=== PATIENT | female | born 1995 | race Caucasian/White ===

== ENCOUNTER 2019-09-06 13:36 | Outpatient (CLI) | payer OTHER, SELFPAY ==
--- NOTE | ~2019-09-06 | XR_ITS ---
EXAMINATION: XR skull min 4V EXAM DATE: 09/06/2019 14:25 INDICATION: Head injury. TECHNIQUE: Frontal, Carlos's, bilateral lateral projections of the skull. There is no prior study fo r comparison. FINDINGS: There are no acute skull fractures or dislocations identified. There is no subcutaneous ga s. The soft tissue is unremarkable. There are no radiopaque foreign bodies. Nasal Bones visualize d on the lateral projections, appear intact. IMPRESSION: 1. Skull exam without acute osseous findings. Reviewed, dictated and finalized at location A.
--- NOTE | ~2019-09-06 | XR_ITS ---
EXAMINATION: XR orbits min 4V EXAM DATE: 09/06/2019 14:25 INDICATION: Facial swelling, pain, head injury. TECHNIQUE: Orbit frontal, Solis, bilateral oblique projections. There is no prior study for compar khalif. FINDINGS: The orbital rims and floors appear intact. There are no acute orbital fractures or disloca tions identified. There is no subcutaneous gas. The soft tissue is unremarkable. There are no rad iopaque foreign bodies. Sinuses appear well-aerated. IMPRESSION: No acute osseous findings. Reviewed, dictated and finalized at location A. IMPRESSION: No acute osseous findings.
== END 2019-09-06 13:37 | disposition home or self-care (01) ==
LOC: CHSIMG 13:41
PROVIDERS: PCP Physician Assistant; Visit Provider Physician Assistant
DX: R22.0 Localized swelling, mass and lump, head (principal); R51 Headache
CPT/HCPCS: 70200; 70260

== ENCOUNTER 2023-02-18 18:12 | Emergency (ER) | payer OTHER, SELFPAY ==
--- NOTE | ~2023-02-18 | CT_ITS ---
EXAMINATION: CT abdomen pelvis w con DATE: 02/18/2023 19:22 INDICATION: LOWER abdominal pain INTO RIGHT FLANK X 3 HOURS TECHNIQUE: Computed tomography (CT) of the abdomen and pelvis was performed with 100 mL Omnipaque-350 intravenous contrast. Automated exposure control and iterative reconstruction technique were employe d. The dose-length product was 858.31 mGy-cm. COMPARISON: 04/03/2019. FINDINGS: Lower thorax: Unremarkable Liver: Normal. Biliary/Gallbladder: Gallbladder is normal. No bile duct dilation. Pancreas: No mass or duct dilation. Spleen: Normal. Adrenals:No mass. Kidneys: Symmetric nephrograms. Moderate bilateral urothelial enhancement and mild bilateral hydronep hrosis. GI tract: No small or large bowel dilation. Normal appendix. Mesentery/Peritoneum: No ascites, mass, or free air. Retroperitoneum: No mass. Pelvis: Mild bladder wall edema. Normal uterus. Soft Tissues: Soft tissues and body wall unremarkable. Bones: No acute osseous finding. Uncomplicated appearing but incompletely visualized left hip replac ement. IMPRESSION: Findings suspicious for cystitis with bilateral ascending infection and bilateral pyelitis. Pyeloneph ritis not excluded. Reviewed, dictated and finalized at location K. 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 Pyelonephritis not excluded.
--- NOTE | 2023-02-18 18:17 | ED.ABDPAIN ---
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 The pain started suddenly and has been getting worse. The patient has nausea without any vomiting or diarrhea. No fever. The patient had a prior episode of pain 2 years ago. No history of any abdominal surgeries. MD elicited complaint: abdominal pain Onset (ago): hour(s) ( Started 3 hours ago) Pain Consistency: constant Location: diffuse Severity: severe Quality: aching Radiation: none Migration to: no migration Exacerbating factors: nothing Relieving factors: nothing Associated symptoms: denies other symptoms and nausea Related Data Allergies Allergy/AdvReac Type Severity Reaction Status Date / Time morphine Allergy Intermediate Rash Verified 04/03/19 12:02 [place] Allergy Hives Verified 02/18/23 18:35 Review of Systems Review of Systems: All systems reviewed & are unremarkable except as noted in HPI and below Constitutional: Constitutional: Reports as per HPI and Reports no additional constitutional complaints Eyes: Eyes: Reports as per HPI and Reports no additional eye complaints ENT: Reports system reviewed and no additional complaints, except as documented and Reports as per HPI Cardiovascular: Cardiovascular: Reports as per HPI and Reports no additional cardiovascular complaints Respiratory: Respiratory: Reports as per HPI and Reports no additional respiratory complaints Gastrointestinal: Gastrointestinal: Reports as per HPI, Reports no additional gastrointestinal complaints, Reports abdominal pain and Reports nausea Genitourinary: Genitourinary: Reports no additional female genitourinary complaints and Reports as per HPI Musculoskeletal: Musculoskeletal: Reports no additional musculoskeletal complaints and Reports as per HPI Integumentary/Breasts: Skin/Breast: Reports system reviewed and no additional complaints, except as docu and Reports as per HPI Neurologic: Reports system reviewed and no additional complaints, except as documented and Reports as per HPI Psychiatric: Psychiatric: Reports no additional psychiatric complaints and Reports as per HPI Endocrine: Endocrine: Reports no additional endocrine complaints and Reports as per HPI Hematologic/Lymphatic: Hematologic/Lymphatic: Reports no additional hematologic/lymphatic complaints and Reports as per HPI Allergic/Immunologic: Allergic/Immunologic: Reports no additional allergic/immunologic complaints and Reports as per HPI [facility] Past Medical History Medical History (Updated 02/18/23 @ 20:19 by Avi Faria MD) Depression (02/24/17) Juvenile osteochondrosis of hip and pelvis Other chronic pain (02/24/17) Other specified contraceptive management (02/24/17) Palpitations Perthes disease lt hip Unspecified examination Surgical History Surgical History History of hip replacement lt hip Family History Family History Father Family history of bipolar disorder Depression Social History Social History Additional smoking assessment comments: Does not smoke Alcohol intake: current Gender identity (if verbalized by the patient): Female Exam Const: General: no acute distress Orientation/consciousness: patient oriented x3 Limitations: no limitations HENMT: Head: normal to inspection Ears: external ears normal Face/Nose/Sinus: Normal external nose present Face and sinus: normal facial exam Mouth: Yes Normal oral and palatal mucosa present Throat: posterior oropharynx normal
[2023-02-18 18:20] VITALS: BP 130/74; PULSE 73; RESP 18; TEMP 36.4; O2SAT 100
[2023-02-18 18:37] LABS: Appearance Urine Slightly Cloudy (Clear); Basophils Absolute Auto 0.05 K/mm3 (0.00-0.10); Basophils Percent Auto 0.3 % (0.0-1.0); Bilirubin Urine Negative (Negative); Blood Urine 3+ (Negative); Eosinophils Absolute Auto 0.14 K/mm3 (0.02-0.50); Glucose Urine UA Negative (Negative); Hemoglobin 12.9 g/dL (12.0-15.0); Immature Granulocyte Absolute 0.06 K/mm3 (0.00-0.00); Immature Granulocyte Percent A 0.4 % (0.0-0.0); Ketones Urine Negative (Negative); Leukocyte Esterase Ur 2+ LEU/UL (Negative); Lymphocytes Absolute Auto 2.65 K/mm3 (1.10-4.50); Mean Corpuscular HGB Conc 33.1 g/dL (32.0-36.0); Mean Corpuscular Hemoglobin 31.8 pg (27.0-31.0); Mean Corpuscular Volume 96.1 fL (78.0-102.0); Mean Platelet Volume 9.2 fl (9.2-11.8); Monocytes Absolute Auto 0.64 K/mm3 (0.10-0.90); Monocytes Percent Auto 4.4 % (2.0-11.0); Neutrophils Absolute Auto 11.2 K/mm3 (1.7-7.2); Neutrophils Percent Auto 75.9 % (50.0-70.0); Nitrate Urine Negative (Negative); Platelet Count Result 407 K/mm3 (150-420); Protein Urine 2+ (Negative); Red Blood Count 4.06 M/mm3 (4.20-5.40); Red Cell Distribution Width 12.9 % (11.6-14.4); Urobilinogen Urine 0.2 mg/dL (0.2-1.0); White Blood Count 14.7 K/mm3 (4.8-10.8)
[2023-02-18 18:44] LABS: Add Urine Microscopic? YES; Bacteria Urine Trace /hpf; Color Urine Light Yellow (Yellow); RBC Urine 21-50 /hpf (0-2); Squamous Epithelial Cell Urine Rare /hpf (Few); WBC Clumps Urine Present /hpf; WBC Urine 31-50 /hpf (0-3)
[2023-02-18 18:52] LABS: INR 0.9; Partial Thromboplastin Time 27.1 SEC (23.90-30.70); Prothrombin Time 10.4 Seconds (9.50-12.10)
[2023-02-18 18:54] LABS: Alanine Aminotransferase 46 U/L (14-59); Albumin Level 3.6 g/dL (3.4-5.0); Alkaline Phosphatase 108 U/L (46-116); Anion Gap 8 mmol/L (8-16); Aspartate Amino Transferase 19 U/L (15-37); Bilirubin,Total 0.3 mg/dL (0.00-1.00); Blood Urea Nitrogen 15 mg/dL (7-18); Carbon Dioxide 28 mmol/L (21-32); Chloride 104 mmol/L (98-108); Estimated CRCL calculation 79 ml/min; Estimated Glomerular Filt Rate 60; Glucose 95 mg/dL (70-99); Lipase 23 U/L (16-77); Osmolality Calculated 290 mOsm/kg (285-295); Potassium 3.9 mmol/L (3.5-5.1); Sodium 140 mmol/L (136-145); Total Protein 7.4 g/dL (6.4-8.2)
[2023-02-18 18:58] LABS: Pregnancy On Board Control Positive; Urine Pregnancy Test Negative
[2023-02-18] MEDS: ONDANSETRON INJ 4 MG/2 ML VIAL IV PUSH (19:38)
[2023-02-18] MEDS: LACTATED RINGERS 1,000 ML 999 ML IV CONT (19:38)
[2023-02-18] MEDS: HYDROmorphone HCL INJ (*CRX) 2 MG/ML VIAL 0.5 MG IV PUSH (19:38)
[2023-02-18] MEDS: CIPROFLOXACIN 500 MG TAB PO (20:55)
[2023-02-18 21:03] VITALS: BP 98/74; PULSE 64; RESP 16; TEMP 36.8; O2SAT 99
--- NOTE | 2023-02-22 12:32 | PC.NURSE ---
pt urine culture reviewed. pt given rx cipro, appropriate medication. no change needed
--- NOTE | 2023-02-25 13:01 | PC.NURSE ---
final urine culture reviewed. >100,000 E. coli isolated. pt was prescribed cipro at discharge, culture report shows sensitivity to this medication. no change in plan of care.
== END 2023-02-18 21:04 | disposition home or self-care (01) ==
PROVIDERS: Emergency Provider Internal Medicine Critical Care Medicine; PCP Physician Assistant
DX: N10 Acute pyelonephritis (principal)
CPT/HCPCS: 36415; 74177; 80053; 81001; 81025; 83605; 83690; 85025; 85610; 85730; 87077; 87086; 87088; 87186; 96361; 96374; 96375; 99284; A9270; J1170; J2405; J7120; Q9967

== ENCOUNTER 2023-07-25 17:07 | Emergency (ER) | payer OTHER, SELFPAY ==
[2023-07-25 17:08] VITALS: BP 127/76; PULSE 84; RESP 20; TEMP 36.8; O2SAT 97
--- NOTE | 2023-07-25 17:09 | ED.GENADULT ---
HPI - General Adult General Chief complaint: Extremity Injury, Lower Stated complaint: ankle swelling Time Seen by Provider: 07/25/23 17:09 Source: patient Mode of arrival: ambulatory Limitations: no limitations History of Present Illness HPI narrative: 28-year-old white female is on vacation walking a lot on a cruise last 5 days and then has had increasing swelling in her lower extremities and feet which hurt. She has a history of swelling in the past related to salt intake. Denies any history of liver kidney disease or congestive heart failure venous thromboembolism. Only past medical history is artificial hip anxiety depression. Denies any shortness of breath cough sore throat runny nose fever dizziness or lightheadedness weakness rash her itching lumps or bumps or other swelling. Bleeding or bruising. Her feet feel numb. Swelling is worse when she is walking. Denies any trauma. She feels like the backs of her ankles or heel hurts. Bilaterally she took some ibuprofen 4 tablets twice a day and some Tylenol. She is eating and drinking stooling and voiding fine. Denies any other complaints Related Data Home Medications Medication Instructions Recorded Confirmed aripiprazole 400 mg suspension, 400 mg IM WEEKLY 07/25/23 07/25/23 extended rel.intramuscular syringe (Maye Dejesus) gabapentin 100 mg capsule 100 mg PO DAILY 07/25/23 07/25/23 lamotrigine 100 mg tablet 100 mg PO DAILY 07/25/23 07/25/23 prazosin 1 mg capsule 1 mg PO DAILY 07/25/23 07/25/23 Allergies Allergy/AdvReac Type Severity Reaction Status Date / Time morphine Allergy Intermediate Rash Verified 07/25/23 17:09 [place] Allergy Hives Verified 07/25/23 17:09 Review of Systems Review of Systems: All systems reviewed & are unremarkable except as noted in HPI and below PMFSH Past Medical History Medical History Depression (02/24/17) Juvenile osteochondrosis of hip and pelvis Other chronic pain (02/24/17) Other specified contraceptive management (02/24/17) Palpitations Perthes disease lt hip Unspecified examination Surgical History Surgical History History of hip replacement lt hip Family History Family History Father Family history of bipolar disorder Depression Social History Social History Additional smoking assessment comments: Does not smoke Alcohol intake: current Gender identity (if verbalized by the patient): Female Exam Narrative: White female no apparent distress. ?Head:? Normocephalic atraumatic.? Eyes conjunctiva pink sclera nonicteric.? Ears TMs are normal.? Oropharynx is clear with moist mucous membranes no exudates.? Neck is supple no lymphadenopathy nontender full range of motion.? Back is nontender.? Chest nontender.? Lungs are clear without wheezes rales or rhonchi.? Heart is regular rate rhythm without murmurs gallops or rubs.? Abdomen soft and nontender no hepatosplenomegaly or masses no CVA tenderness no abdominal bruits.? Extremities no cyanosis clubbing. A feet and legs are swollen +2 bilaterally. Negative Homans sign bilaterally. DP and PT pulses are +2 equal bilaterally. Gait is normalNeurological she is alert and oriented x4 motor and sensory grossly intact.? Skin is warm and dry without lesions. Course Vital Signs Vital signs: Vital Signs Temperature 36.8 C 07/25/23 17:08 Pulse Rate 84 07/25/23 17:08 Respiratory Rate 20 07/25/23 17:08 Blood Pressure 127/76 07/25/23 17:08 Pulse Oximetry 97 07/25/23 17:08 Oxygen Delivery Room Air 07/25/23 17:08 Temperature 36.7 C 07/25/23 20:33 Pulse Rate 87 07/25/23 20:33 Respiratory Rate 16 07/25/23 20:33 Blood Pressure 127/84 07/25/23 20:33 Pulse Oximetry 96 07/25/23 20:33 Oxygen Delive
[2023-07-25 17:11] VITALS: BP 127/76; PULSE 84; RESP 20; TEMP 36.8; O2SAT 97
[2023-07-25 18:11] LABS: Hematocrit 36.8 % (35.0-49.0); Hemoglobin 12.4 g/dL (12.0-15.0); Mean Corpuscular HGB Conc 33.7 g/dL (32-36); Mean Corpuscular Volume 94.8 fL (78.0-102.0); Mean Platelet Volume 9.8 fl (9.2-11.8); Platelet Count Result 364 K/mm3 (150-420); Red Blood Count 3.88 M/mm3 (4.20-5.40); Red Cell Distribution Width 13.3 % (11.6-14.4); White Blood Count 7.2 K/mm3 (4.8-10.8)
[2023-07-25 18:24] LABS: D Dimer 0.28 mg/L (0.19-0.50); INR 0.9; Partial Thromboplastin Time 24.9 Sec (23.9-30.70); Prothrombin Time 10.3 Seconds (9.50-12.1)
[2023-07-25 18:26] LABS: Alanine Aminotransferase 82 U/L (14-59); Albumin Level 3.2 g/dL (3.4-5.0); Alkaline Phosphatase 93 U/L (46-116); Anion Gap 9 mmol/L (4-12); Aspartate Amino Transferase 53 U/L (15-37); Bilirubin,Total 0.3 mg/dL (0.00-1.00); Blood Urea Nitrogen 11 mg/dL (7-18); Calcium 7.8 mg/dL (8.5-10.1); Carbon Dioxide 28 mmol/L (21-32); Chloride 105 mmol/L (98-108); Estimated CRCL calculation 97 ml/min; Estimated Glomerular Filt Rate > 60; Glucose 89 mg/dL (70-99); Osmolality Calculated 292 mOsm/kg (285-295); Potassium 3.9 mmol/L (3.5-5.1); Sodium 142 mmol/L (136-145); Total Protein 6.8 g/dL (6.4-8.2)
[2023-07-25 20:33] VITALS: BP 127/84; PULSE 87; RESP 16; TEMP 36.7; O2SAT 96
[2023-07-25 22:00] VITALS: BP 107/74; PULSE 69; RESP 16; O2SAT 99
[2023-07-25] MEDS: FUROSEMIDE 20 MG TABLET 40 MG PO (22:39)
== END 2023-07-25 22:50 | disposition home or self-care (01) ==
PROVIDERS: Emergency Provider Emergency Medicine; PCP Physician Assistant
DX: R60.0 Localized edema (principal); E83.51 Hypocalcemia; F32.A Depression, unspecified
CPT/HCPCS: 36415; 80053; 85027; 85380; 85610; 85730; 99283; A9270

== ENCOUNTER 2024-01-26 08:45 | Outpatient (CLI) | payer OTHER, SELFPAY ==
--- NOTE | ~2024-01-26 | MMUS_ITS ---
EXAMINATION: MM diagnostic mika BI w vanessa, US breast LT limited HISTORY: Breast abscess. Left breast pain. TECHNIQUE: Additional 3-D tomosynthesis images of the breasts were performed and synthetic 2-D images were generated. CAD analysis was submitted and interpreted. High resolution Limited left breast ultr asound was performed. COMPARISON: None BREAST PARENCHYMAL COMPOSITION: Not dense: There are scattered areas of fibroglandular density. FINDINGS: MAMMOGRAPHIC FINDINGS: There are no suspicious masses, calcifications or architectural distortion in either breast to sugges t malignancy. ULTRASOUND: Limited left breast ultrasound: In the left chest wall 14 cm from the nipple there is a heterogeneous hypoechoic area with some small focal areas of internal cystic change measuring 2.1 x 1.7 x 4.7 cm, consistent with phlegmon. No drainable abscess. IMPRESSION: 1. Irregular hypoechoic mass of the left chest wall 14 cm from the nipple, consistent with phlegmonou s change. No drainable abscess. 2. Recommend follow-up Limited left breast ultrasound in 2-3 months following appropriate therapy. BI-RADS category 3, probably benign findings. Reviewed, dictated and finalized at location B. IMPRESSION: 1. Irregular hypoechoic mass of the left chest wall 14 cm from the nipple, cons istent with phlegmonous change. No drainable abscess. 2. Recommend follow-up Limited left breast ultrasound in 2-3 months following a ppropriate therapy. BI-RADS category 3, probably benign findings.
== END 2024-01-26 08:46 | disposition home or self-care (01) ==
PROVIDERS: PCP Physician Assistant; Visit Provider Physician Assistant
DX: N61.1 Abscess of the breast and nipple (principal)
CPT/HCPCS: 76642; 77062; 77066; G0279

== ENCOUNTER 2024-02-29 05:51 | Day surgery (SDC) | payer OTHER, SELFPAY ==
[2024-02-16 10:40] VITALS: BMI 35.6
[2024-02-29 06:17] VITALS: BP 130/87; PULSE 85; RESP 16; TEMP 36.4; O2SAT 100
--- NOTE | 2024-02-29 06:51 | WPDANESEPPF ---
Anes - Initial Pre Proc Eval Procedure: Operation Date: 02/29/24 07:30 Proposed Procedures p Excision 3.5cm Left Chest Wall Cyst - Angel Bingham DO Date/Time: 02/29/24 06:51 Surgeon: Angel Bingham DO Pre Op Diagnosis: Left Chest Wall Cyst Patient Data Age: 28 Gender: F Height: 1.68 m Weight: 98.7 kg Last Vital Signs Temp 36.4 C L 02/29/24 06:17 Pulse 85 02/29/24 06:17 Resp 16 02/29/24 06:17 BP 130/87 02/29/24 06:17 Pulse Ox 100 02/29/24 06:17 O2 Del Method Room Air 02/29/24 06:17 Allergies Allergy/AdvReac Type Severity Reaction Status Date / Time morphine Allergy Intermediate Rash Verified 02/29/24 06:10 [place] Allergy Hives Verified 02/29/24 06:10 Home Medications Medication Instructions Recorded Confirmed Type gabapentin 100 mg capsule 100 mg PO TID 07/25/23 02/29/24 History clonidine HCl 0.1 mg tablet 0.1 mg PO TID 02/16/24 02/29/24 History Patient hx anesthesia problems: none Family hx anesthesia problems: none Results Review: All pre-operative results and documents have been reviewed as part of the pre-operative evaluation. [facility] Past Medical History Medical History Arthritis Depression (02/24/17) Juvenile osteochondrosis of hip and pelvis Other chronic pain (02/24/17) Other specified contraceptive management (02/24/17) Palpitations Perthes disease lt hip Unspecified examination Surgical History Surgical History History of hip replacement lt hip History of hip surgery Family History Family History Father Family history of bipolar disorder Depression Grandparent Cancer Breast cancer Other Diabetes mellitus Social History Social History Smoking status: Former smoker Tobacco type: cigarettes Second hand tobacco smoke exposure: Yes Additional smoking assessment comments: Does not smoke Alcohol intake: current Drinks per week: 3 Substance use type: does not use Do You Feel Safe in your Home?: Yes Lack of Transportation: No Lack of Food: Never True Current Housing: I Have Housing Concerned About Future Housing: No Difficulty Paying Gas/Electric Bills: No Difficulty Paying for Meds: No Currently Unemployed: No Education: Associate Degree Difficulty w/ Childcare or Family Care: No Living arrangements: with family Gender identity (if verbalized by the patient): Female Spiritual care concerns: No Anes - Eval Final PreProcedure Day of Procedure 02/29/24 06:51 Patient weight: obese Heart: regular rate and rhythm Lungs: clear to auscultation Airway: Mallampati scale class II Neurological: alert and oriented Last oral intake: >/= 8 hours ASA classification: II Emergent: no Anesthetic plan: proceed Anesthesia type and monitoring: general GIVS and standard monitoring Results Review: All pre-operative results and documents have been reviewed as part of the pre-operative evaluation. Informed Consent: The patient's anesthetic plan and its attendant risks and benefits were discussed with the patient/family/POA. Questions were solicited and answers provided to the satisfaction of the patient/family/POA.
[2024-02-29] MEDS: LACTATED RINGERS 1,000 ML 30 ML IV CONT (06:59)
--- NOTE | 2024-02-29 07:13 | WPDHPUPDATE1 ---
History and Physical Update Update Date/Time: 02/29/24 07:13 History and Physical has been reviewed, including an updated exam of the patient. There are NO changes in the patient's condition. Risks, benefits, and alternatives have been discussed and questions answered. Patient agrees to proceed with procedure.
[2024-02-29] MEDS: LIDO 1%/EPINEPHRINE 1:100,000 10 ML VIAL 20 ML INFILTRATE (07:39)
[2024-02-29 08:02] VITALS: BP 127/61; PULSE 86; RESP 14; O2SAT 98
--- NOTE | 2024-02-29 08:04 | W.PM.PROC2 ---
Procedure Note - Detailed Date of Procedure 02/29/24 Pre-op Diagnosis Left Chest Wall Cyst Post-op Diagnosis Same Procedure Performed Excision of 3.5 cm left chest wall cyst Surgeon Angel Bingham, DO Anesthesia MAC and Local ( 1% lidocaine with epinephrine) Indications this is a 28-year-old woman who presented with a chest wall cyst that she 1st noticed about 1 month ago. This was initially noted as some swelling and redness in the area and she was placed on antibiotics which did not help significantly. She denies any significant drainage, but was having some increased swelling and tenderness. She underwent mammogram and ultrasound which showed predominantly phlegmonous changes. The area appeared to be a cyst within the subcutaneous tissue along the medial portion of the left chest wall. This did not appear to be involving the actual breast tissue. Discussions were made with the patient about treatment options and decision was made to proceed with excision of 3.5 cm left chest wall cyst. Findings Excision of 3.5 cm left chest wall cyst was performed. An elliptical incision was made to encompass the skin at the surface of the cyst. The cyst was completely excised and sent to the lab for pathology. It appeared to be ruptured within the subcutaneous space. No other abnormal findings were noted. Description of Procedure Procedure as well as risks, benefits, and alternatives were discussed with the patient. Written consent was obtained and placed in chart prior to procedure. Patient was brought back to surgical suite. She was placed supine on the operating table. Time-out was done to confirm patient and procedure. IV sedation was then administered by the anesthesia department. Her chest area was prepped and draped in sterile fashion using chlorhexidine prep. 1% lidocaine with epinephrine was infiltrated locally around the cyst. A 3.5 cm vertical elliptical incision was then made directly over the cyst using a 15 blade scalpel. The cyst was sharply excised using the 15 blade scalpel. It was excised completely and then sent to the lab for pathology. The wound bed was then inspected. Hemostasis was achieved with electrocautery. The deep dermis was then reapproximated using 3-0 Vicryl inverted interrupted sutures. The skin was then reapproximated using 4-0 Monocryl running subcuticular suture. Exofin glue was then applied on top. The patient was then awakened from anesthesia and transferred to recovery. Estimated Blood Loss 5 Pathology Yes ( 3.5 cm chest wall cyst) Complications No immediate complications Condition Stable Disposition Same day [facility] Billing Surgery - Charge Forward: Surgery Billing
[2024-02-29 08:21] VITALS: BP 125/68; PULSE 77; RESP 16; O2SAT 99
[2024-02-29 08:38] VITALS: BP 117/65; PULSE 72; RESP 16; O2SAT 100
--- NOTE | 2024-02-29 09:37 | WPDANESPN ---
Anes - Prog Note Post-Op Date/Time: 02/29/24 09:37 Cardiovascular status: normal Respiratory status: normal Airway patency: baseline Mental status: baseline Post-Op hydration status: normal Vital Signs: Last Vital Signs Temp 36.4 C L 02/29/24 06:17 Pulse 72 02/29/24 08:38 Resp 16 02/29/24 08:38 BP 117/65 02/29/24 08:38 Pulse Ox 100 02/29/24 08:38 O2 Del Method Room Air 02/29/24 08:38 Pain Score (VAS): 0 I/O: Intake & Output 02/28/24 02/29/24 02/29/24 23:59 07:59 15:59 Intake Total 200 Balance 200 Post-procedural complaints: none Patient Feedback: Patient satisfied with anesthetic care. Other Findings: Patient vital signs back to baseline. Patient denies nausea and vomiting. Patient's pain under control. Patient OK for discharge.
== END 2024-02-29 08:43 | disposition home or self-care (01) ==
PROVIDERS: PCP Physician Assistant; Visit Provider Surgery
PROC: (CPT 21552; principal; 2024-02-29 07:30)
DX: R22.2 Localized swelling, mass and lump, trunk (principal)
CPT/HCPCS: 21552

== ENCOUNTER 2024-02-29 07:00 | Outpatient (NON) | payer OTHER, SELFPAY | END 2024-02-29 07:01 | disposition home or self-care (01) | LOC: ANHLAB 03-01 12:00 | PROVIDERS: PCP Physician Assistant; Visit Provider Surgery | DX: L72.0 Epidermal cyst (principal); R22.2 Localized swelling, mass and lump, trunk | CPT/HCPCS: 88305 ==

== ENCOUNTER 2024-07-12 15:09 | Outpatient (RCR) | payer OTHER, SELFPAY ==
--- NOTE | 2024-07-12 15:56 | OPREHPOC ---
Outpatient Therapy Plan of Care This is a Multidisciplinary Plan of Care that may contain components documented by all disciplines (PT, OT, and ST.) PT Problem 1 PT Problem #1 Knowledge Deficit PT Goal 1 Goal / Goal Update independent and compliant with HEP Target Visit 6 PT Problem 2 PT Problem #2 Impaired Range of Motion PT Goal 1 Goal / Goal Update 90 degrees active R hip flex Target Visit 12 PT Problem 3 PT Problem #3 Impaired Strength PT Goal 1 Goal / Goal Update 4/5 or better R hip flex 5/5 R knee strength Target Visit 12 PT Problem 4 PT Problem #4 Impaired Gait PT Goal 1 Goal / Goal Update patient to ambulate with normal gait mechanics and no AD. patient to ambulate up and down steps with reciprocal mechanics and 1 UE assist or less on hand rails Target Visit 12 PT Problem 5 PT Problem #5 Impaired Functional Mobility PT Goal 1 Goal / Goal Update LEFS to display 20% or less functional deficits patient to return to sleeping in bed patient to return sleeping through the night without being woken up due to hip pain Target Visit 12
--- NOTE | 2024-07-12 15:56 | PTOPEVAL1 ---
Assessment and note entered by JT File, PT Evaluation Information Assessment Status Evaluation Diagnosis R LATASHA ICD-10 Condition Codes (PT) Encounter for other orthopedic aftercare Z47.89, Aftercare following joint replacement surgery Z47. 1 Onset 07/08/24 Subjective Information patient reports she had LATASHA on the R hip on . she had replacement due to LCP. she had L LAATSHA about 9 years ago. she reports she had an arthroscopic R hip surgery back in november of last year that did not help. she reports since surgery she has been having a lot of pain in the R hip. she was in the hospital 4 days for the LATASHA due to issues with bleeding through the bandages, and with redness/swelling around the incision site. she reports the redness is gone, but the swelling and burning are still there. prior to surgery, she was not using any AD to get around. she reports she was limping and had a lot of pain. she reports this replacement was an anterior replacement. she reports her R hip pain is increased with any movement and standing. Reported Pain Level Pain Score 7: Self Report Assessment PT Clinical Summary mrs fowler is a 29 yo woman who presents to skilled PT for rehab following R LATASHA from LCP. she presents this date with quite a bit of pain in the R hip. she displays significant limitations in R hip rom and strength, and displays abnormal gait mechanics. continued skilled PT is indicated to improve her objective/functional deficits and return to her prior level functional activity performance/quality of life. Plan of Care Interventions Electrical Stimulation,Gait Training,Hot Pack/Cold Pack,Manual Therapy,Neuro Re-education,Patient/ Caregiver Education,Therapeutic Activities, Therapeutic Exercise PT Services Indicated Yes Treatment Frequency and 3x weekly for 12 visits Duration These treatments will address the objective and functional deficits as defined above. The patient will be advanced safely and appropriately in order for the patient to progress towards his/her prior level of function. Additional exercises will be introduced and as well as a comprehensive home exercise program upon discharge, if needed, ?to ensure carryover of functional gains achieved in the clinic. This treatment plan has been reviewed and agreement upon by the patient.
--- NOTE | 2024-07-25 11:32 | PCPTNOTE ---
Patient called & cancelled scheduled appointment this date due pt in ER.
--- NOTE | 2024-08-08 18:05 | PTOPPROG ---
Assessment and note entered by Morena Bridges, PT Evaluation Information Assessment Status Progress Diagnosis R LATASHA ICD-10 Condition Codes (PT) Encounter for other orthopedic aftercare Z47.89, Aftercare following joint replacement surgery Z47. 1 Onset 07/08/24 Subjective Information Pt reports she's been slowly getting better since she underwent a R LATASHA on 07/08/24. She reports active R hip flexion still causes pain due to weakness from anterior approach. She has now been ambulating with an SPC but has started ambulating around the house without an AD and she's hoping to wean off the cane soon to be able to ambulate without an AD. She states she's been sleeping in her bed for a while instead of the recliner and she's been trying not to take her pain meds however pain worsens at night and interferes with her sleep. She states she's pretty much up all night due to pain and when she gets up in the morning her hip pain is at its worst and that's when she takes pain meds. Assessment PT Clinical Summary Mrs. Lobo has attended 10 total skilled PT visits for orthopedic aftercare following R LATASHA on 07/08/24. Since beginning therapy she has made good progress in her ambulation and now uses an SPC to ambulate during therapy sessions. She has started ambulating in her home without an AD. She has also made good progress in her R hip AROM and strength but still demonstrates significant R hip flexor weakness along with pain with this movement , along with significant pain at night that interferes with sleep. She will benefit from continued skilled PT intervention to keep progressing toward goals. Plan of Care Interventions Electrical Stimulation,Gait Training,Hot Pack/Cold Pack,Manual Therapy,Neuro Re-education,Patient/ Caregiver Education,Therapeutic Activities, Therapeutic Exercise PT Services Indicated Yes Treatment Frequency and Continue with original POC Duration These treatments will address the objective and functional deficits as defined above. The patient will be advanced safely and appropriately in order for the patient to progress towards his/her prior level of function. Additional exercises will be introduced and as well as a comprehensive home exercise program upon discharge, if needed, ?to ensure carryover of functional gains achieved in the clinic. This treatment plan has been reviewed and agreement upon by the patient.
--- NOTE | 2024-08-11 14:45 | OPREHPOC ---
Outpatient Therapy Plan of Care This is a Multidisciplinary Plan of Care that may contain components documented by all disciplines (PT, OT, and ST.) PT Problem 1 PT Problem #1 Knowledge Deficit PT Goal 1 Goal / Goal Update independent and compliant with HEP Target Visit 6 Progress Met PT Problem 2 PT Problem #2 Impaired Range of Motion PT Goal 1 Goal / Goal Update 90 degrees active R hip flex Target Visit 12 Progress Met PT Problem 3 PT Problem #3 Impaired Strength PT Goal 1 Goal / Goal Update 4/5 or better R hip flex -not met 5/5 R knee strength -met Target Visit 12 Progress Partially Met PT Problem 4 PT Problem #4 Impaired Gait PT Goal 1 Goal / Goal Update patient to ambulate with normal gait mechanics and no AD. -met patient to ambulate up and down steps with reciprocal mechanics and 1 UE assist or less on hand rails -not met Target Visit 12 Progress Partially Met PT Problem 5 PT Problem #5 Impaired Functional Mobility PT Goal 1 Goal / Goal Update LEFS to display 20% or less functional deficits - not met patient to return to sleeping in bed -met patient to return sleeping through the night without being woken up due to hip pain -not met Target Visit 12 Progress Partially Met
--- NOTE | 2024-08-11 14:45 | PTOPPROG ---
Assessment and note entered by Morena Bridges, PT Evaluation Information Assessment Status Progress Diagnosis R LATASHA ICD-10 Condition Codes (PT) Encounter for other orthopedic aftercare Z47.89, Aftercare following joint replacement surgery Z47. 1 Onset 07/08/24 Subjective Information Felicia reports slowly making progress in physical therapy following a R LATASHA using anterior approach. She is no longer ambulating with a cane and has been sleeping in bed rather than the recliner, however she is still up all night in pain. Her hip pain tends to be worse in the morning because she avoids taking pain meds at night before bed. Assessment PT Clinical Summary Mrs. Lobo has attended 12 total skilled PT visits following a R LATASHA anterior approach on . Since beginning therapy she has made progress in her functional mobility and is now able to ambulate without a cane. However she still demonstrates significant R hip flexor weakness and early fatigue with exercise, as well as frequent night pain that interferes with her sleep. She will benefit from continued skilled PT intervention to continue improving on these deficits to be able to perform functional tasks with less pain. Plan of Care Interventions Electrical Stimulation,Gait Training,Hot Pack/Cold Pack,Manual Therapy,Neuro Re-education,Patient/ Caregiver Education,Therapeutic Activities, Therapeutic Exercise PT Services Indicated Yes Treatment Frequency and 2x/week for 8 additional visits Duration These treatments will address the objective and functional deficits as defined above. The patient will be advanced safely and appropriately in order for the patient to progress towards his/her prior level of function. Additional exercises will be introduced and as well as a comprehensive home exercise program upon discharge, if needed, ?to ensure carryover of functional gains achieved in the clinic. This treatment plan has been reviewed and agreement upon by the patient.
--- NOTE | 2024-09-05 14:57 | PCPTNOTE ---
Cancelled session. Reports she tore a tendon and is going to see ortho tomorrow.
--- NOTE | 2024-09-08 16:23 | PCPTNOTE ---
Patient called & cancelled scheduled appointment this date due to having a torn tendon following a fall on the hip. She is on hold from PT currently per her MD. -Felicity Arzate, PT
--- NOTE | 2024-11-22 14:53 | PCPTNOTE ---
discharged due to time since last session
== END 2024-10-10 23:59 | disposition home or self-care (01) ==
LOC: CHSPT 15:09
DX: M16.11 Unilateral primary osteoarthritis, right hip (principal)
CPT/HCPCS: 97014; 97110; 97112; 97116; 97140; 97150; 97161; 97530; G0283

== ENCOUNTER 2024-07-25 11:00 | Emergency (ER) | payer OTHER, SELFPAY ==
[2024-07-25] VITALS (7 sets, daily range): BP systolic 105–139; BP diastolic 64–78; PULSE 74–90; RESP 17–18; TEMP 36.9–37; O2SAT 96–100
--- NOTE | ~2024-07-25 | CT_ITS ---
CT brain wo con Ordering provider: Meir Mendoza MD History: 29 years Female with . headache, blurry vision,PERIPHERAL VISION LOSS,DIZZY,NAUSEA . Comparison: None. Technique: CT of the head without contrast. Radiation reduction technique utilized. The dose-length p roduct was 605.33 mGy-cm. FINDINGS: BRAIN PARENCHYMA AND CSF SPACES: No midline shift, mass effect or hemorrhage. The brain parenchyma a nd CSF spaces are otherwise normal. VISUALIZED PARANASAL SINUSES: Well aerated. MASTOIDS: Well aerated. BONES: The bones appear intact. SOFT TISSUES: Visualized nasopharynx is normal. Superficial soft tissues are normal. IMPRESSION: No acute intracranial findings. Reviewed, dictated and finalized at location A.
[2024-07-25] MEDS: MECLIZINE HCL 25 MG TABLET 50 MG PO (11:23)
[2024-07-25] MEDS: KETOROLAC (*BKC) 60 MG/2 ML VIAL IM (11:24)
--- NOTE | 2024-07-25 12:37 | PC.NURSE ---
Patient reports nausea and headache are gone, dizziness only with movement but has improved.
--- OUTSIDE RECORDS SUMMARY | 2024-07-25 12:54 | XMS_ITS | Encounter Summary ---
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 Legal Sex Female 7:07 PM CDT Gender Identity Not on file Sexual Orientation Not on file documented as of this encounter Plan of Treatment Not on file documented as of this encounter Visit Diagnoses Not on filedocumented in this encounter Additional Health Concerns Infection Onset Date Last Indicated Resolved Time COVID-19 Rule Out 05/25/2023 05/25/2023 05/25/2023 5:45 PM SHOVEL LOG LOADER OPERATOR COVID-19 Rule Out 03/02/2024 03/02/2024 03/02/2024 12:25 PM SHOVEL LOG LOADER OPERATOR documented as of this encounter Care Teams Cook Cold Meat Relationship Specialty Start Date End Date Adams Ricks NP [address] [place] [phone] PCP - General Nurse Practitioner Family 06/26/22 documented as of this encounter
--- OUTSIDE RECORDS SUMMARY | 2024-07-25 12:54 | XMS_ITS | Encounter Summary ---
Author Organization [facility] Address [address] [place] [address] Care Team Providers Care Software Asset Management Analyst Name Role Phone Héctor Rodriguez MD Primary Care Provider Unavailable Adams Ricks NP Primary Care Provi shaheen Encounter Details Date Type Department Care Team (Late st Contact Info) Description 02/07/2017 [place] [address] Héctor Rodriguez MD Social History Tobacco Use Types Packs/Day Years Used Date Smoking Tobacco: Never Assessed Comments Unknown Sex and Gender Information Value Date Recorded Sex Assigned at Female 04/26/2024 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 Legal Sex Female 7:07 PM CDT Gender Identity Not on file Sexual Orientation Not on file documented as of this encounter Plan of Treatment Not on file documented as of this encounter Visit Diagnoses Not on filedocumented in this encounter Additional Health Concerns Infection Onset Date Last Indicated Resolved Time COVID-19 Rule Out 05/25/2023 05/25/2023 05/25/2023 5:45 PM GUEST LAUNDRY ATTENDANT COVID-19 Rule Out 03/02/2024 03/02/2024 03/02/2024 12:25 PM GUEST LAUNDRY ATTENDANT documented as of this encounter Care Teams Software Asset Management Analyst Relationship Specialty Start Date End Date Héctor Rodriguez MD PCP - General 02/27/14 06/17/17 Adams Ricks NP [address] [place] [id number] PCP - General Nurse Practitioner Family 06/26/22 documented as of this encounter
--- OUTSIDE RECORDS SUMMARY | 2024-07-25 12:54 | XMS_ITS | Clinical Summary ---
Author Organization [facility] Address [address] [place] [address] Care Team Providers Care Machine Set Up Operator Paper Goods Name Role Phone JenniferAdams hsea Shar [employer] Primary Care Provide r Source Comments [facility],non-owned Affiliates and Associated Physician Practices is amultiple site organization consisting of ambulatory clinics and hospital sitesin [place], [place], [place] and [place]. This disclosure is being madepursuant to the Care Everywhere program and may not contain all information available regarding this patient. Last updated 17.[facility] Allergies Active Allergy Reactions Criticality Noted Date Comments [place] Other Medium 05/10/2024 Salinas fruit, salinas flavor okay Mouth and throat gibson and hives Morphine Rash Low 09/18/2012 Medications * Be aware that medications may not be up to date on this document. Alwaysverify current medications with the patient. atorvastatin (Lipitor) 20 MG tablet Take 1 (one) tablet by mouth once daily Ok to take day of surgery 03/18/20 24 Active buPROPion XL 24hr (Wellbutrin XL) 150 MG tablet Take 1 (one) tablet by mouth once daily Ok to take day of surgery Active vitamin D, ergocalciferol, (Drisdol) 1.25 MG (23014 UT) capsule Take 1 (one) capsule by mouth every 7 days Thursday Hold day of surgery 11/10/19 24 Active LORazepam (Ativan) 0.5 MG tablet Take 1 (one) tablet by mouth as needed Ok to take day of surgery 07/30/19 24 Active metFORMIN (Glucophage) 850 MG tablet Take by mouth every 12 hours Hold day of surgery Active QUEtiapine (SEROquel) 50 MG tablet Take 1 (one) tablet by mouth at bedtime 04/12/19 25 Active Viibryd 20 MG tablet Take 1 (one) tablet by mouth once daily Ok to take day of surgery 03/18/20 24 Active aspirin (Aspirin) 325 MG tablet Take 1 (one) tablet by mouth 2 times daily for 35 days 70 tablet 07/09/19 25 025 Active pregabalin (Lyrica) 75 MG capsule Take 1 (one) capsule by mouth 2 times daily 60 capsule 07/09/19 25 Active tranexamic acid (Lysteda) 650 MG tablet Take 2 (two) tablets by mouth 3 times daily 15 tablet 07/09/19 25 Active celecoxib (CeleBREX) 100 MG capsuleIndications :Acute Pain Take 1 (one) capsule by mouth 2 times daily Reasons: Acute Pain 120 capsule 07/09/19 25 Active oxyCODONE, immediate release, (Roxicodone) 5 MG tabletIndications: Primary osteoarthritis of right hip Take 1 (one) tablet by mouth every 6 hours as needed for Pain 28 tablet 07/09/19 25 Active hydrOXYzine HCl (Atarax) 25 MG tabletIndications: Anxiety,Nervousnes s Take 1 (one) tablet by mouth 3 times daily as needed for Itching Reasons: Feeling Anxious, Feeling Tense 90 tablet 07/12/19 25 Active cyclobenzaprine (Flexeril) 10 MG tablet Take 1 (one) tablet by mouth 3 times daily as needed for Muscle Spasms 90 tablet 07/12/19 25 Active Sennosides-Docusat e Sodium (Senna-Docusate Sodium) 8.6-50 MG Take 1 (one) tablet by mouth 2 times daily 60 tablet 07/12/19 25 Active naproxen (NAPROSYN) 500 MG tablet Take 1 Tab by mouth 2 times daily as needed for Pain. 60 Tab 0 09/19/19 13 Discontinu ed(Tx Complete) Other once daily. Control PIlls, Patient can't remember the name Discontinu ed(List Clean-Up) Abilify Asimtufii 720 MG/2.4ML injection 12/24/19 24 025 Discontinu ed(List Clean-Up) ARIPiprazole (Abilify) 5 MG tablet 01/19/20 025 Discontinu ed(List Clean-Up) CeleBREX 200 MG capsule Take 1 (one) capsule by mouth every 12 hours Discontinu ed(List Clean-Up) cephalexin (Keflex) 500 MG capsule 03/02/20 025 Discontinu ed(List Clean-Up) cloNIDine (Catapres) 0.1 MG tablet 03/18/20 025 Discontinu ed(List Clean-Up) cyclobenzaprine (Flexeril) 5 MG tablet 11/11/19 025 Discontinu ed(List Clean-Up) DULoxetine (Cymbalta) 60 MG capsule 01/19/20 Discontinu ed(List Clean-Up) gabapentin (Neurontin) 100 MG capsule 02/16/20 025 Discontinu ed(List Clean-Up) HYDROcodone-acetam inophen (Shawnee) 5-325 MG tablet 11/25/19 24 025 Discontinu ed(List Clean-Up) hydrOXYzine HCl (Atarax) 10 MG tablet 05/24/19 25 025 Discontinu ed(List Clean-Up) lamoTRIgine (LaMICtal) 100 MG tablet 07/30/19 24 025 Discontinu ed(List Clean-Up) naloxone HCl (Narcan) 4 MG/0.1ML nasal spray 11/25/19 24 025 Discontinu ed(List Clean-Up) ondansetron (Zofran) 4 MG tablet 11/11/19 24 025 Discontinu ed(List Clean-Up) prazosin (Minipress) 1 MG capsule 07/30/19 24 025 Discontinu ed(List Clean-Up) traMADol (Ultram) 50 MG tablet 02/29/20 24 025 Discontinu ed(List Clean-Up) triamterene-hydroC HLOROthiazide (Maxzide-25) 37.5-25 MG tablet 08/03/19 24 025 Discontinu ed(List Clean-Up) doxycycline monohydrate 100 MG capsule Take 1 (one) capsule by mouth every 12 hours for 7 days 14 capsule 07/09/19 25 025 Active Problems Problem Noted Date Diagnosed Date Primary osteoarthritis of right hip 07/08/2024 Hip pain 09/24/2012 Encounters Date Type Department Care Team Description 07/08/2024 11:47 AM CDT Anesthesia Event [facility] [address] [id number] Nicole Roland MD Reddy, Srinivas Patlola, MD 07/08/2024 10:46 AM CDT - 07/08/2024 1:28 PM CDT Surgery [facility] Op [address] [address] Baltazar Vigil, ROBOTIC ASSISTED ARTHROPLASTY TOTAL HIP (ANTERIOR) 07/08/2024 8:14 AM CDT - 07/11/2024 3:42 PM CDT Hospital Encounter [facility] 2N ORTHOPEDICS [address] [id number] Baltazar Vigil DO Surgery Orthopedics Discharge Disposition: Home or Self Care 07/08/2024 Travel 07/04/2024 7:30 AM CDT - 07/04/2024 11:59 PM CDT Hospital Encounter [facility] PREADMISSION TESTING [address] [id number] Baltazar Vigil DO Orthopedics Discharge Disposition: Home or Self Care 07/04/2024 Travel 06/14/2024 Travel from Last 3 Months Social History Tobacco Use Types Packs/Day Years Used Date Smoking Tobacco: Never Smokeless Tobacco: Never Tobacco Cessation:Counseling Given: Not Answered Alcohol Use Standard Drinks/Week Comments Yes 3 (1 standard drink = 0.6 oz pur e alcohol) Comments No Sex and Gender Information Value Date Recorded Sex Assigned at Not on file Legal Sex 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 Gender Identity Not on file Sexual Orientation Not on file Last Filed Vital Signs Vital Sign Reading Time Taken Comments Blood Pressure 113/56 07/11/2024 11:02 AM CDT Pulse 66 07/11/2024 11:02 AM CDT Temperature 36.7 C (98 F) 07/11/2024 11:02 AM CDT Respiratory Rate 20 07/11/2024 11:02 AM CDT Oxygen Saturation 99% 07/11/2024 11:02 AM CDT Inhaled Oxygen Concentration - - Weight 97.5 kg (215 lb) 07/08/2024 8:39 AM CDT Height 167.6 cm (5' 6 ) 07/08/2024 8:39 AM CDT Body Mass Index 34.7 07/08/2024 8:39 AM CDT Plan of Treatment Health Maintenance Due Date Last Done Comments Opioid Medication Agreement - Annual 1993 Opioid Medication Urine Drug Screening 1993 PAP SMEAR 1993 HIV SCREENING 2008 HEPATITIS C SCREENING 05/20/2011 DTAP/TDAP/TD VACCINES (1 - Tdap) 2012 HEPATITIS B VACCINE (1 of 3 - 19+ 3-dose series) 2012 PNEUMOCOCCAL VACCINE (1 of 2 - PCV) 2012 COVID-19 VACCINE (1 - 2023-2 5 season) 2023 DEPRESSION SCREENING 04/06/2024 INFLUENZA VACCINE (Season Ended) 2024 ZOSTER VACCINE (1 of 2) 2043 HIB VACCINE Aged Out No longer eligi ble based on patient's age to complete this topic HPV VACCINE Aged Out No longer eligi ble based on patient's age to complete this topic MENINGOCOCCAL (Group B) VACC INE SHARED DECISION-MAKING Aged Out No longer eligibl e based on patient's age to complete this topic MENINGOCOCCAL GROUPS A/C/Y/W VACCINE Aged Out No longer eligible b ased on patient's age to complete this topic Medical Devices Implanted Type Area Tooling Engineer Device Identifier Shelf Expiration Date Model / Serial / Lot Shell Actb 48mm Hip 3 Screw Hl Clstr Implanted:Qty: 1 on 07/08/2024 by Baltazar Vigil DO at [facility] Right: Hip [employer] 03/10/2029 702-04-48D / / [id number] Impl Hip Stm 99mm Nk 36mm Insg 2 Hi Stm Implanted:Qty: 1 on 07/08/2024 by Baltazar Vigil DO at [facility] Right: Hip [employer] 10/11/2028 [id number] / / [id number] Liner Actb Mdm D 38mm Cocr Hip 22.2mm Implanted:Qty: 1 on 07/08/2024 by Baltazar Vigil DO at [facility] Right: Hip [employer] 05/23/2029 [id number] / / [id number] Head Fem +0mm Ofst Tpr 28mm Hip Blx D Implanted:Qty: 1 on 07/08/2024 by Baltazar Vigil DO at [facility] Right: Hip [employer] 12/16/2028 [id number] / / [id number] Mdm X3 Insert For Mdm Liner, 38d Implanted:Qty: 1 on 07/08/2024 by Baltazar Vigil DO at [facility] Right: Hip [employer] 02/06/2029 7236-2-844 / / [id number] Procedures Procedure Name Priority Date/Time Associated Diagnosis Comments IMAGING/RADIOLOGY/X RAY RESULTS ORDER 07/12/2024 8:49 PM CDT CARDIAC RHYTHM STRIP ORDER 07/12/2024 5:24 PM CDT CBC W/O DIFFERENTIAL Routine 07/11/2024 8:13 AM CDT Primary osteoarthritis of right hip BASIC METABOLIC PANEL (CALCIUM TOTAL) Routine 07/11/2024 8:00 AM CDT Primary osteoarthritis of right hip HEMOGLOBIN A1C Routine 07/10/2024 4:26 AM CDT Controlled type 2 diabetes mellitus with complication, without long-term current use of insulin (HCC) MAGNESIUM BLOOD AM Draw 07/10/2024 4:26 AM CDT Primary osteoarthritis of right hip COMPREHENSIVE METABOLIC PANEL AM Draw 07/10/2024 4:26 AM CDT Primary osteoarthritis of right hip CBC W/O DIFFERENTIAL AM Draw 07/10/2024 4:26 AM CDT Primary osteoarthritis of right hip XR PELVIS W RIGHT HIP 2VW STAT 07/09/2024 7:40 PM CDT S/p revision of right total hip Pain of right hip GLUCOSE - POINT OF CARE Routine 07/09/2024 2:27 PM CDT BASIC METABOLIC PANEL (CALCIUM TOTAL) Routine 07/09/2024 1:28 PM CDT Controlled type 2 diabetes mellitus with complication, without long-term current use of insulin (HCC) CBC W/O DIFFERENTIAL Routine 07/09/2024 1:28 PM CDT Controlled type 2 diabetes mellitus with complication, without long-term current use of insulin (HCC) HGB HCT PANEL AM Draw 07/09/2024 4:28 AM CDT Primary osteoarthritis of right hip XR PELVIS 1 OR 2VW STAT 07/08/2024 4: 19 PM CDT Primary osteoarthritis of right hip NV TOTAL HIP REPLACEMENT 07/08/2024 11:41 AM CDT Special Needs 120 MIN, AMY DAS CONFIRMED [phone] LR 06/29 PERIPHERAL BLOCK Routine 07/08/2024 10:04 AM CDT HCG URINE QUALITATIVE - POCT (IP) INTERFACED Routine 07/08/2024 8:42 AM CDT HCG URINE QUAL POCT NOTIFICATION Routine 07/08/2024 8:40 AM CDT Preop testing from Last 3 Months Results * IMAGING RADIOLOGY XRAY RESULTS ORDER (07/12/2024 8:49 PM CDT) Anatomical Region Laterality Modality Other Narrative 07/12/2024 8:49 PM CDT Ordered by an unspecified provider. us Scanned Document IMAGING Final Result * CARDIAC RHYTHM STRIP ORDER (07/12/2024 5:24 PM CDT) Narrative 07/12/2024 5:24 PM CDT Ordered by an unspecified provider. us Scanned Document CARDIAC SERVICES ORDERABLES Fin al Result * (ABNORMAL) CBC W/O DIFFERENTIAL (07/11/2024 8:13 AM CDT) Only the most recent of3 resultswithin the time period is included. WBC 12.7(H) 4.0 - 10.7 x10E9/L 07/11/2024 8:27 AM CDT [facility] RBC Count 3.99 3.90 - 5.20 x10E12/L 07/11/2024 8:27 AM CDT [facility] Hemoglobin 12.8 11.9 - 15.8 g/dL 07/11/2024 8:27 AM CDT [facility] Hematocrit 39.9 34.8 - 46.1 % 07/11/2024 8:27 AM CDT [facility] MCV 100.0(H) 80.0 - 98.0 fL 07/11/2024 8:27 AM CDT [facility] MCH 32.1 26.7 - 33.6 pg 07/11/2024 8:27 AM CDT [facility] MCHC 32.1 31.7 - 36.3 g/dL 07/11/2024 8:27 AM CDT [facility] RDW-CV 13.6 11.3 - 14.8 % 07/11/2024 8:27 AM CDT [facility] Platelet Count 415 150 - 420 x10E9/L 07/11/2024 8:27 AM CDT [facility] MPV 9.7 7.8 - 11.4 fL 07/11/2024 8:27 AM CDT [facility] Blood BLOOD SPECIMEN / Unknown Lab Venipuncture / Unknown 07/11/2024 8:13 AM CDT 07/11/2024 8:25 AM CDT us Chanda Gautam MD LAB - HEMATOLOGY ORDERABLES F inal Result [facility] [address] [id number] * (ABNORMAL) BASIC METABOLIC PANEL (CALCIUM TOTAL) (07/11/2024 8:00 AM CDT) Only the most recent of2 resultswithin the time period is included. [facility] Glucose 81 70 - 99 mg/dL 07/11/2024 9:17 AM CDT [facility] Sodium 140 136 - 145 mmol/L 07/11/2024 9:17 AM CDT [facility] Potassium 3.8 3.5 - 5.1 mmol/L 07/11/2024 9:17 AM T [facility] Chloride 109(H) 98 - 107 mmol/L 07/11/2024 9:17 AM T [facility] CO2 22 22 - 29 mmol/L 07/11/2024 9:17 AM T [facility] Calcium 9.7 8.4 - 10.4 mg/dL 07/11/2024 9:17 AM T [facility] Anion Gap 9 6 - 16 mmol/L 07/11/2024 9:17 AM T [facility] BUN 6 5.3 - 18.7 mg/dL 07/11/2024 9:17 AM T [facility] Creatinine 0.70 0.57 - 1.11 mg/dL 07/11/2024 9:17 AM T [facility] eGFR by CKD-EPI >90 >=90 mL/min/1.7 3 m2 07/11/2024 9:17 AM [facility] Blood BLOOD SPECIMEN / Unknown Lab Venipuncture / Unknown 07/11/2024 8:00 AM CDT 07/11/2024 8:25 AM CDT us Chanda Gautam MD LAB - CHEMISTRY ORDERABLES Fi nal Result [facility] [address] [id number] * HEMOGLOBIN A1C (07/10/2024 4:26 AM CDT) Hemoglobin A1c 5.3 <5.7 % 07/10/2024 5:17 AM CDT [facility] Estimated Average Glucose 105 mg/dL 07/10/2024 5:17 AM CDT [facility] Blood BLOOD SPECIMEN / Unknown Lab Venipuncture / Unknown 07/10/2024 4:26 AM CDT 07/10/2024 5:01 AM CDT Narrative [facility] - 07/10/2024 5:17 AM CDT HbA1c Interpretation: Normal: < 5.7% Pre-diabetes: 5.7-6.4% Diabetes: Equal to or greater than 6.5% Test results diagnostic of diabetes should be repeated for confirmation. Treatment target values recommended by ADA and other clinical organizations should be used to evaluate metabolic control in patients. This test should not replace glucose testing for patients with Type 1 diabetes, pediatric patients, or women. Falsely low HbA1c results may be observed in patients with clinical conditions that shorten erythrocyte life span or decrease mean erythrocyte age such as the presence of unstable hemoglobin variants, elevated hemoglobin F level or other causes of hemolytic anemia. HbA1c may not accurately reflect glycemic control when clinical conditions that affect erythrocyte survival are present. Severe Iron deficiency anemia may yield falsely high results. Hemoglobin A1c assay should not be used to diagnose or monitor diabetes in patients with malignancy, recent blood transfusion, chronic kidney or liver disease. This method may yield falsely low results when hemoglobin (HbF) exceeds 5% in the specimen. The Durán Alinity assay for the measurement of HbA1c is a National Glycohemoglobin Standardization Program (NGSP) certified method. us Chanda Gautam MD LAB - CHEMISTRY ORDERABLES Fi nal Result [facility] [place] [address] * (ABNORMAL) COMPREHENSIVE METABOLIC PANEL (07/10/2024 4:26 AM CDT) Glucose 120(H) 70 - 99 mg/dL 07/10/2024 5:21 AM CDT [facility] Sodium 142 136 - 145 mmol/L 07/10/2024 5:21 AM [facility] Potassium 4.3 3.5 - 5.1 mmol/L 07/10/2024 5:21 AM [facility] Chloride 113(H) 98 - 107 mmol/L 07/10/2024 5:21 AM [facility] CO2 22 22 - 29 mmol/L 07/10/2024 5:21 AM [facility] Calcium 8.3(L) 8.4 - 10.4 mg/dL 07/10/2024 5:21 AM [facility] Anion Gap 7 6 - 16 mmol/L 07/10/2024 5:21 AM [facility] BUN 7 5.3 - 18.7 mg/dL 07/10/2024 5:21 AM [facility] Creatinine 0.63 0.57 - 1.11 mg/dL 07/10/2024 5:21 AM [facility] Alkaline Phosphatase 74 40 - 150 U/L 07/10/2024 5:21 AM [facility] ALT 30 6 - 57 U/L 07/10/2024 5:21 AM [facility] AST 22 10 - 48 U/L 07/10/2024 5:21 AM [facility] Protein Total 6.1(L) 6.4 - 8.3 gm/dL 07/10/2024 5:21 AM [facility] Albumin 3.2(L) 3.4 - 5.0 gm/dL 07/10/2024 5:21 AM [facility] Bilirubin Total 0.1(L) 0.2 - 1.2 mg/dL 07/10/2024 5:21 AM [facility] eGFR by CKD-EPI >90 >=90 mL/min/1.7 3 m2 07/10/2024 5:21 AM [facility] Blood BLOOD SPECIMEN / Unknown Lab Venipuncture / Unknown 07/10/2024 4:26 AM CDT 07/10/2024 5:01 AM [facility] us Chanda Gautam MD LAB - CHEMISTRY ORDERABLES Fi nal Result [facility] [address] [id number] * MAGNESIUM BLOOD (07/10/2024 4:26 AM CDT) Magnesium 2.0 1.6 - 2.6 mg/dL 07/10/2024 5:21 AM CDT [facility] Blood BLOOD SPECIMEN / Unknown Lab Venipuncture / Unknown 07/10/2024 4:26 AM CDT 07/10/2024 5:01 AM CDT Chanda Gautam MD LAB - CHEMISTRY ORDERABLES Fi nal Result [facility] [address] [id number] * XR Pelvis W Right Hip 2Vw (07/09/2024 7:40 PM CDT) Anatomical Region Laterality Modality Pelvis Radiographic Mary ging 07/10/2024 10:1 9 AM CDT Narrative 07/10/2024 10:19 AM CDT EXAM: XR PELVIS W RIGHT HIP 2VW INDICATION: Fall, right hip pain COMPARISON: 07/08/2024 FINDINGS: Bilateral hip arthroplasty hardware is unremarkable. There is no loosening or breakage. There is no acute fracture, dislocation or osseous destruction. > Interpreting Provider: Celso Kerr JR, MD on 07/10/2024 10:19 AM Procedure Note Celso Kerr MD - 07/10/2024 EXAM: XR PELVIS W RIGHT HIP 2VW INDICATION: Fall, right hip pain COMPARISON: 07/08/2024 FINDINGS: Bilateral hip arthroplasty hardware is unremarkable. There is noloosening or breakage. There is no acute fracture, dislocation or osseous destruction. > Interpreting Provider: Celso Kerr JR, MD on 07/10/2024 10:19 AM Baltazar Vigil DO DIAGNOSTIC IMAGING ORDER DILLON Final Result * (ABNORMAL) GLUCOSE - POINT OF CARE (07/09/2024 2:27 PM CDT) Glucose WB/POC 123(H) 70 - 99 mg/dL 07/13/2024 12:12 PM CDT [facility] Specimen Type Cap Fingerstick 2024 12:12 PM CDT [facility] Blood BLOOD SPECIMEN / Unknown 07/09/2024 2:27 PM CDT 07/13/2024 12:12 PM CDT Baltazar Vigil DO LAB - POINT OF CARE ORDE RABLES Final Result Performing Organization Address [facility]/ZIP Co de Phone Number [facility] [address] [id number] * (ABNORMAL) HGB HCT PANEL (07/09/2024 4:28 AM CDT) [facility] Hemoglobin 10.8(L) 11.9 - 15.8 g/dL 07/09/2024 5:38 AM CDT [facility] Hematocrit 32.8(L) 34.8 - 46.1 % 07/09/2024 5:38 AM CDT [facility] Blood BLOOD SPECIMEN / Unknown Lab Venipuncture / Unknown 07/09/2024 4:28 AM CDT 07/09/2024 5:32 AM CDT Baltazar Vigil DO LAB - HEMATOLOGY ORDERAB LES Final Result Performing Organization Address [facility] Co de Phone Number [facility] [address] [id number] * XR PELVIS 1 OR 2VW (IN PACU) (07/08/2024 4:19 PM CDT) Anatomical Region Laterality Modality Pelvis Radiographic Mary ging 07/08/2024 4:20 PM CDT Narrative 07/08/2024 4:21 PM CDT PROCEDURE(s): XR PELVIS 1 OR 2VW; DATE AND TIME OF EXAM(s): 07/08/2024 4:19 PM; LOCATION: [facility] INDICATION(s): M16.11: Unilateral primary osteoarthritis, right hip COMPARISON(s): 03/16/2017. Findings/Impression: Interval right hip arthroplasty. No hardware complication, fracture or malalignment. Expected soft tissue changes are noted. Stable appearance of the left hip arthroplasty. > Interpreting Provider: Audie Reid DO on 07/08/2024 4:21 PM Procedure Note Audie Reid DO - 07/08/2024 PROCEDURE(s): XR PELVIS 1 OR 2VW; DATE AND TIME OF EXAM(s): :19 PM; LOCATION: [facility] INDICATION(s): M16.11: Unilateral primary osteoarthritis, right hip COMPARISON(s): 03/16/2017. Findings/Impression: Interval right hip arthroplasty. No hardware complication, fracture or malalignment. Expected soft tissue changes are noted. Stable appearance of the left hip arthroplasty. > Interpreting Provider: Audie Reid DO on 07/08/2024 4:21 PM Baltazar Vigil DO DIAGNOSTIC IMAGING ORDER DILLON Final Result * Peripheral Nerve Block (07/08/2024 10:04 AM CDT) Narrative Jorge Harrison MD - 07/08/2024 10:04 AM CDT Jorge Harrison MD 07/08/2024 10:05 AM Peripheral Nerve Block Procedure: Peripheral Nerve Block Patient Location: Pre-op Preprocedure Section: Indications: at surgeon's request and postop pain management. Pre-anesthetic Checklist: Patient identified, IV Checked, Site examined and clear, Risks and benefits discussed, Surgical consent verified, Monitors and equipment, Time-out performed, Informed consent obtained, Pre-op evaluation done, Questions answered/anesthesia questions answered, Allergies reviewed and Removal hand/wrist jewelry Monitors: Pulse Ox. Patient Condition: sedated, meaningful contact maintained throughout procedure Patient Position: supine Patient Sedated? Yes Sedation Type: mild Sedation Agents: fentaNYL (PF) (SUBLIMAZE) injection - Intravenous 100 mcg - 07/08/2024 9:58:00 AM midazolam (VERSED) injection - Intravenous 2 mg - 07/08/2024 9:58:00 AM Procedure Section Laterality: right Block Performed: fascia iliaca Prep: Chloraprep Strerile Field: gloves, mask, hat/cap and sterile ultrasound sleeve Skin localized with: lidocaine (XYLOCAINE) 1 % injection - Infiltration 2 mL - 07/08/2024 9:58:00 AM Needle Type: Echogenic insulated Needle Gauge: 21 Needle Length: other - comments Catheter? No Ultrasound Guided? Yes Technique: in plane Visualization: Preliminary scan performed, Important anatomical structures identified, Needle tip visualized throughout the procedure, Target identified, No intraneural or intravascular puncture occurred, Ultrasound image in chart and Hydrodissection utilized Injection was made incrementally with constant monitoring and aspirations every 5 mL's Block Agents or Additives used? Yes Block agents used: ropivacaine (NAROPIN) 5 MG/ML (0.5%) injection - Infiltration 40 mL - 07/08/2024 10:02:00 AM Procedure Tolerance: tolerated well, performed while the patient was sedated and no immediate complications Assessment: completed Procedure Start Time: 07/08/2024 9:58 AM. Procedure End Time: 07/08/2024 10:02 AM. Procedure Total Time: 4 minutes. Staff Section Anesthesia Provider: Jorge Harrison MD, Performed the procedure us Jorge Harrison MD GENERAL ANESTHESIA ORD ERABLES Final Result * HCG URINE QUALITATIVE - POCT (IP) INTERFACED (07/08/2024 8:42 AM CDT) HCG Qual Urine Negative Negative 07/08/2024 8:48 AM CDT [facility] Urine URINE / Unknown 07/08/2024 8 :42 AM CDT 07/08/2024 8:48 AM CDT us Baltazar Vigil DO LAB - POINT OF CARE [place] Final Result [facility] [address] [id number] * HCG URINE QUAL POCT NOTIFICATION (07/08/2024 8:40 AM CDT) Comment Notification Label Only - See Separate Report 07/08/2024 10:00 AM CDT [facility] Urine URINE / Unknown 07/08/2024 8 :40 AM CDT 07/08/2024 8:41 AM [facility]T [facility] - URINALYSIS ORDER DILL[place] Final Result [facility] [address] [address] from Last 3 Months Insurance SELF PAY NO INSURANCE Member Subscriber Plan / Payer (Ef fective for All Dates) Name:Felicia Morel Member ID:Not on file Relation to Subscriber:Self Name:FELICIA MOREL Subscriber ID:Not on file Payer ID:Not on file Group ID:Not on file Type:Self Pay Address: [place], [place] [facility] [place] [facility] [place] Address: [facility] [id number] [place] [address] Advance Directives * Full Code (Latest Code Status on File) Date Activated Date Inactivated Comments 07/08/2024 3:47 PM 07/11/2024 4:43 PM Care Teams Machine Set Up Operator Paper Goods Relationship Specialty Start Date End Date Adams Ricks, ACCOUNTING REPRESENTATIVE-[employer] DEAN [address] [place] [phone] PCP - General Internal Medicine 07/04/24
--- OUTSIDE RECORDS SUMMARY | 2024-07-25 12:54 | XMS_ITS | Clinical Summary ---
Author Organization [facility] Address [address] [place] [address] Care Team Providers Care Seasonal Delivery Driver Name Role Phone Adams Ricks POWDERED SUGAR PULVERIZER OPERATOR Primary Care Provi shaheen Allergies Active Allergy Reactions Criticality Noted Date Comments Morphine Hives,Rash,Unknown Medium 09/18/2012 Medications LORazepam (ATIVAN) 0.5 MG tablet Take 1 tablet (0.5 mg total) by mouth as needed. 07/30/2023 Active atorvastatin (LIPITOR) 20 MG tablet Take 1 tablet (20 mg total) by mouth daily. 03/18/2024 Active WELLBUTRIN XL 150 MG 24 hr tablet Take 1 tablet (150 mg total) by mouth every morning. 04/12/2024 Active QUEtiapine (SEROQUEL) 50 MG tablet Take 1 tablet (50 mg total) by mouth nightly at bedtime. 04/12/2024 Active VIIBRYD 20 MG tablet Take 1 tablet (20 mg total) by mouth daily. 03/18/2024 Active methylPREDNISol one, AMY, (MEDROL DOSEPAK) 4 MG tablet 6 TABLETS ON DAY ONE, 5 TABLETS DAY TWO, 4 TABLETS DAY THREE, 3 TABLETS DAY FOUR, 2 TABLETS DAY FIVE, AND 1 TABLET DAY SIX 21 tablet 04/13/2024 Active Active Problems Problem Noted Date Diagnosed Date S/P hip arthroscopy 11/18/2023 History of total hip arthroplasty, left 06/27/19 23 Encounters Date Type Department Care Team Description 04/26/2024 4:37 PM ASSOCIATE AGENT INSURANCE SALES - 04/26/2024 11:59 PM ASSOCIATE AGENT INSURANCE SALES Hospital Encounter [facility] [address] [id number] Pancho Colon, PT Lillian Montes, PT Hip Pain Discharge Disposition: Home or Self Care (Routine Discharge) 04/26/2024 Travel from Last 3 Months Family History Relation Status Comments Brother Alive Father Alive Mother Alive Sister Alive Social History Tobacco Use Types Packs/Day Years Used Date Smoking Tobacco: Never Smokeless Tobacco: Never Tobacco Cessation:Counseling Given: Not Answered Alcohol Use Standard Drinks/Week Comments Yes 0 (1 standard drink = 0.6 oz pur e alcohol) occasional Comments No Sex and Gender Information Value Date Recorded Sex Assigned at Female 04/26/2024 4:35 PM ASSOCIATE AGENT INSURANCE SALES Legal Sex Female 7:07 PM CDT Gender Identity Not on file Sexual Orientation Not on file Last Filed Vital Signs Vital Sign Reading Time Taken Comments Blood Pressure 110/58 03/02/2024 1:00 PM ASSOCIATE AGENT INSURANCE SALES Pulse 73 03/02/2024 1:00 PM ASSOCIATE AGENT INSURANCE SALES Temperature 36.6 C (97.8 F) 03/02/2024 11:23 AM ASSOCIATE AGENT INSURANCE SALES Respiratory Rate 16 03/02/2024 1:00 PM ASSOCIATE AGENT INSURANCE SALES Oxygen Saturation 93% 03/02/2024 1:00 PM ASSOCIATE AGENT INSURANCE SALES Inhaled Oxygen Concentration - - Weight 102.1 kg (225 lb) 04/13/2024 9:22 AM ASSOCIATE AGENT INSURANCE SALES Height 167.6 cm (5' 6 ) 04/13/2024 9:22 AM ASSOCIATE AGENT INSURANCE SALES Body Mass Index 36.32 04/13/2024 9:22 AM ASSOCIATE AGENT INSURANCE SALES Plan of Treatment Health Maintenance Due Date Last Done Comments Cervical Cancer Screening Pap Smear (Age 30 to 64) Every 3 Years 1993 Annual Physical 1996 HPV Vaccines (2 - 3-dose series) 02/09/2009 01/12/2009 Hepatitis C 2011 Cervical Cancer Screening Pap with HPV Testing (Age 30 to 64) Every 5 Years 2023 Cervical Cancer Screening with HPV 2023 COVID-19 Vaccine ( season) 2023 DTaP, Tdap and Td Vaccines (8 - Td or Tdap) 01/11/2025 01/11/2015, 01/12/2009, 08/21/1998, Additional history exists Hepatitis B Vaccines Completed 02/21/1994, 1993, 1993 Meningococcal Vaccine Aged Out 01/12/2009 No noel lidya eligible based on patient's age to complete this topic Meningococcal B Vaccine Aged Out No l onger eligible based on patient's age to complete this topic Pneumococcal Vaccine: Pediatrics (0 to 5 Years) and At-Risk Patients (6 to 49 Years) Aged Out No longer eligible based on patient's age to complete this topic RSV Immunizations Under 20 Months Aged Out No longer eligible based on patient's age to complete this topic Insurance DAVE Care Teams Seasonal Delivery Driver Relationship Specialty Start Date End Date Adams Ricks NP [address] [place] [phone] PCP - General Nurse Practitioner Family 06/26/22
--- NOTE | 2024-07-25 13:11 | ED.DIZZY ---
HPI - Dizziness General Chief Complaint: Dizziness Stated Complaint: blurred vision Time Seen by Provider: 07/25/24 11:04 Source: patient Mode of arrival: ambulatory Limitations: no limitations History of Present Illness HPI Narrative: Patient is a 29-year-old female with no significant past medical history that presents today with multiple symptoms. Patient states that 1st of all she has blurry vision and I am feels like everything is moving. Visit she also has dizziness as well. She also has the onset of a headache. She is describing symptoms of a migraine and she does have a history of migraines with auras. This seems to be close to the same however she states that the doors were different in the past I explained to her that the orders could be different each time she has a migraine. I explained her that we can test her vision test neurological a and give her some Antivert and if this is not helpful at all and with time then we will do CT of the brain. MD elicited complaint: dizziness, lightheadedness, vertigo and other ( Blurry vision) Pertinent past history: BPPV Onset (ago): minute(s) Timing: sudden onset Severity: moderate Description: sense of movement, room spinning , off-balance and ongoing History of similar symptoms: Yes Exacerbating factors: movement/ambulation, change in body position, exertion and keeping eyes open Relieving factors: remaining still and lying down Associated symptoms: nausea Associated neuro symptoms: vision changes and difficulty speaking Related Data Home Medications ?Medication ?Instructions ?Recorded ?Confirmed ?Last Taken ?Type gabapentin 100 mg capsule 100 mg PO TID 07/25/23 03/14/24 02/28/24 History clonidine HCl 0.1 mg tablet 0.1 mg PO TID 02/16/24 03/14/24 02/28/24 History cephalexin 500 mg capsule 500 mg PO Q8H 03/08/24 03/14/24 Unknown History quetiapine 50 mg tablet 50 mg PO QHS 03/08/24 03/14/24 Unknown History Allergies Allergy/AdvReac Type Severity Reaction Status Date / Time morphine Allergy Intermediate Rash Verified 07/25/24 11:04 [place] Allergy Hives Verified 07/25/24 11:04 Review of Systems Review of Systems: All systems reviewed & are unremarkable except as noted in HPI and below Constitutional: Constitutional: Reports as per HPI Eyes: Eyes: Reports as per HPI and Reports change in vision ENT: Reports system reviewed and no additional complaints, except as documented Cardiovascular: Cardiovascular: Reports no additional cardiovascular complaints Respiratory: Respiratory: Reports no additional respiratory complaints Gastrointestinal: Gastrointestinal: Reports no additional gastrointestinal complaints Genitourinary: Genitourinary: Reports no additional female genitourinary complaints Musculoskeletal: Musculoskeletal: Reports no additional musculoskeletal complaints Integumentary/Breasts: Skin/Breast: Reports system reviewed and no additional complaints, except as docu Neurologic: Reports as per HPI, Reports dizziness and Reports headache(s) Psychiatric: Psychiatric: Reports no additional psychiatric complaints Endocrine: Endocrine: Reports no additional endocrine complaints Hematologic/Lymphatic: Hematologic/Lymphatic: Reports no additional hematologic/lymphatic complaints Allergic/Immunologic: Allergic/Immunologic: Reports no additional allergic/immunologic complaints [facility] Past Medical History Medical History Anxiety Arthritis Unspecified examination Palpitations Other specified contraceptive management (02/24/17) Other chronic pain (02/24/17) Juvenile osteochondrosis of hip and pelvis Depression (02/24/17) Perthes disease lt hip Surgical History Surgical History H/O removal of cyst 02/29/24 Excision of 3.5 cm left chest wall cyst Dr. Bingham History of hip surgery History of hip replacement lt hip Family History Family History Father Family history of bipolar disorder Depression Grandparent Cancer Breast cancer Other Diabetes mellitus Social History Social History Smoking status: Former smoker Tobacco type: cigarettes Second hand tobacco smoke exposure: Yes Additional smoking assessment comments: Does not smoke Alcohol intake: current Drinks per week: 3 Substance use type: does not use Do You Feel Safe in your Home?: Yes Lack of Transportation: No Lack of Food: Never True Current Housing: I Have Housing Concerned About Future Housing: No Difficulty Paying Gas/Electric Bills: No Difficulty Paying for Meds: No Currently Unemployed: No Education: Associate Degree Difficulty w/ Childcare or Family Care: No Living arrangements: with family Gender identity (if verbalized by the patient): Female Spiritual care concerns: No Exam Const: General: healthy appearing Nutritional Appearance: well nourished Orientation/consciousness: patient oriented x3 HENMT: Head: normal to inspection Ears: TM's normal bilaterally Face/Nose/Sinus: Normal external nose present Face and sinus: normal facial exam Eyes: Conjunctivae: conjunctivae normal Pupils: Equal, round and reactive pupils present EOM: EOMs intact bilaterally Direct Ophthalmoscopy: no photophobia Neck: Neck: normal visual inspection Chest: Chest palpation & inspection: normal inspection of the chest Resp: Effort & Inspection: normal respiratory effort Auscultation: clear to auscultation bilaterally Cardio: Rate: regular rate Rhythm: regular rhythm Heart sounds: Murmur heart sound present Back/Spine/Pelvis: Back: no CVA tenderness Skin: General skin exam: normal color Rashes: no rashes Neuro: General: patient oriented x3 Cranial nerves: Yes Nystagmus not present Speech: normal speech Extrem: General: normal to inspection Psych: Mental Status: mental status grossly normal Affect: normal affect Attitude: cooperative Course Vital Signs Vital signs: Vital Signs Temperature 98.5 F 07/25/24 11:03 Pulse Rate 86 07/25/24 11:03 Respiratory Rate 18 07/25/24 11:03 Blood Pressure 121/78 07/25/24 11:03 Pulse Oximetry 100 07/25/24 11:03 Oxygen Delivery Room Air 07/25/24 11:03 Temperature 98.5 F 07/25/24 11:03 Pulse Rate 86 07/25/24 11:03 Respiratory Rate 18 07/25/24 11:03 Blood Pressure 121/78 07/25/24 11:03 Pulse Oximetry 100 07/25/24 11:03 Oxygen Delivery Room Air 07/25/24 11:03 MDM - Dizziness MDM Narrative Medical decision making narrative: patient's symptoms were very vague and do not really make much sense. The blurry vision has improved and the dizziness has gone away with the and of her. However she says the symptoms not improved enough so she would like to get the CT scan of the brain. CT scan of the brain did not show anything nothing acute and no clots or any other distinctive characteristics. Differential Diagnosis Differential diagnosis: Likely other ( Dizziness, blurred vision) Medical Records Attestation: I reviewed the patient's medical records. Lab Data Attestation: I reviewed the patient's lab results. Imaging Data Attestation: I personally reviewed and interpreted this imaging study as follows: Discharge Plan Discharge Clinical Impression: Dizziness, Blurred vision Patient Disposition: Home Condition: Stable Instructions: Dizziness (ED) Additional Instructions: if symptoms persist recommend going to PCP and getting a referral to neurology for further investigation. Patient Language: Dominican Prescriptions: New meclizine 50 mg tablet 50 mg PO BID PRN (Reason: dizziness) Qty: 14 0RF No Action gabapentin 100 mg capsule 100 mg PO TID quetiapine 50 mg tablet 50 mg PO QHS cephalexin 500 mg capsule 500 mg PO Q8H clonidine HCl 0.1 mg tablet 0.1 mg PO TID Follow-up/Referrals: Rambo,MEG Lamas [Primary Care Provider] - Time of Disposition: 13:28
--- OUTSIDE RECORDS SUMMARY | 2024-07-25 13:20 | XMS_ITS | Clinical Summary ---
Author Organization [facility] Address [address] [facility] [place] [address] Care Team Providers Care Plasma Processing Technician Name Role Phone JenniferAdams shea Shar MANUEL-PRIMARY SUBSTANCE ABUSE COUNSELOR Primary Care Provide r Source Comments [facility],non-owned Affiliates and Associated Physician Practices is amultiple site organization consisting of ambulatory clinics and hospital sitesin [place], [place], [place] and [place]. This disclosure is being madepursuant to the Care Everywhere program and may not contain all information available regarding this patient. Last updated 17.[facility] Allergies Active Allergy Reactions Criticality Noted Date [...] Active vitamin D, ergocalciferol, (Drisdol) 1.25 MG (70123 UT) capsule Take 1 (one) capsule by [...] 02/16/20 025 Discontinu ed(List Clean-Up) HYDROcodone-acetam inophen ([place]) 5-325 MG tablet 11/25/19 24 025 Discontinu [...] Description 07/08/2024 11:47 AM CDT Anesthesia Event [facility] [address] [id number] Nicole Roland MD Reddy, Srinivas Patlola, MD 07/08/2024 10:46 AM CDT - 07/08/2024 1:28 PM CDT Surgery [facility] Op [address] [address] Baltazar Vigil, ROBOTIC ASSISTED ARTHROPLASTY TOTAL HIP (ANTERIOR) 07/08/2024 8:14 AM CDT - 07/11/2024 3:42 PM CDT Hospital Encounter [facility] [address] [address] Baltazar Vigil DO Surgery Orthopedics Discharge Disposition: Home or Self Care 07/08/2024 Travel 07/04/2024 7:30 AM CDT - 07/04/2024 11:59 PM CDT Hospital Encounter [facility] [address] [address] Baltazar Vigil DO Orthopedics Discharge Disposition: Home [...] on file Legal Sex Female 5:41 AM 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 Gender Identity Not on file Sexual Orientation [...] this topic Medical Devices Implanted Type Area Superintendent Drilling And Production Device Identifier Shelf Expiration Date Model / Serial / Lot Shell Actb 48mm Hip 3 Screw Hl Clstr Implanted:Qty: 1 on 07/08/2024 by Baltazar Vigil DO at [facility] Right: Hip [employer] 03/10/2029 702-04-48D / / [id number] Impl Hip Stm 99mm Nk 36mm Insg 2 Hi Stm Implanted:Qty: 1 on 07/08/2024 by Baltazar Vigil DO at [facility] Right: Hip [employer] 10/11/2028 [id number] / / [id number] Liner Actb Mdm D 38mm Cocr Hip 22.2mm Implanted:Qty: 1 on 07/08/2024 by Baltazar Vigil DO at [facility] Right: Hip [employer] 05/23/2029 [id number] / / [id number] Head Fem +0mm Ofst Tpr 28mm Hip Blx D Implanted:Qty: 1 on 07/08/2024 by Baltazar Vigil DO at [facility] Right: Hip [employer] 12/16/2028 [id number] / / [id number] Mdm X3 Insert For Mdm Liner, 38d Implanted:Qty: 1 on 07/08/2024 by Baltazar Vigil DO at [facility] Right: Hip [employer] 02/06/2029 [id number] / [...] PM CDT Primary osteoarthritis of right hip [place] TOTAL HIP REPLACEMENT 07/08/2024 11:41 AM CDT Special Needs 120 MIN, AMY DAS CONFIRMED [phone] LR 06/29 PERIPHERAL BLOCK Routine 07/08/2024 10:04 [...] - 10.7 x10E9/L 07/11/2024 8:27 AM CDT [facility] RBC Count 3.99 3.90 - 5.20 x10E12/L 07/11/2024 8:27 AM CDT [facility] Hemoglobin 12.8 11.9 - 15.8 g/dL 07/11/2024 8:27 AM CDT [facility] Hematocrit 39.9 34.8 - 46.1 % 07/11/2024 8:27 AM CDT [facility] MCV 100.0(H) 80.0 - 98.0 fL 07/11/2024 8:27 AM CDT [facility] MCH 32.1 26.7 - 33.6 pg 07/11/2024 8:27 AM CDT [facility] MCHC 32.1 31.7 - 36.3 g/dL 07/11/2024 8:27 AM CDT [facility] RDW-CV 13.6 11.3 - 14.8 % 07/11/2024 8:27 AM CDT [facility] Platelet Count 415 150 - 420 x10E9/L 07/11/2024 8:27 AM CDT [facility] MPV 9.7 7.8 - 11.4 fL 07/11/2024 8:27 AM CDT [facility] Blood BLOOD SPECIMEN / Unknown Lab Venipuncture / Unknown 07/11/2024 8:13 AM CDT 07/11/2024 8:25 AM CDT us Chanda Gautam MD LAB - HEMATOLOGY ORDERABLES F inal Result [facility] [address] [id number] * (ABNORMAL) BASIC METABOLIC PANEL (CALCIUM TOTAL) (07/11/2024 8:00 AM CDT) Only the most recent of2 resultswithin the time period is included. [facility] Glucose 81 70 - 99 mg/dL 07/11/2024 9:17 AM CDT [facility] Sodium 140 136 - 145 mmol/L 07/11/2024 9:17 AM CDT [facility] Potassium 3.8 3.5 - 5.1 mmol/L 07/11/2024 9:17 AM T [facility] Chloride 109(H) 98 - 107 mmol/L 07/11/2024 9:17 AM T [facility] CO2 22 22 - 29 mmol/L 07/11/2024 9:17 AM T [facility] Calcium 9.7 8.4 - 10.4 mg/dL 07/11/2024 9:17 AM T [facility] Anion Gap 9 6 - 16 mmol/L 07/11/2024 9:17 AM T [facility] BUN 6 5.3 - 18.7 mg/dL 07/11/2024 9:17 AM T [facility] Creatinine 0.70 0.57 - 1.11 mg/dL 07/11/2024 9:17 AM T [facility] eGFR by CKD-EPI >90 >=90 mL/min/1.7 3 m2 07/11/2024 9:17 AM [facility] Blood BLOOD SPECIMEN / Unknown Lab Venipuncture / Unknown 07/11/2024 8:00 AM CDT 07/11/2024 8:25 AM CDT us Chanda Gautam MD LAB - CHEMISTRY ORDERABLES Fi nal Result [facility] [address] [id number] * HEMOGLOBIN A1C (07/10/2024 4:26 AM CDT) Hemoglobin A1c 5.3 <5.7 % 07/10/2024 5:17 AM CDT [facility] Estimated Average Glucose 105 mg/dL 07/10/2024 5:17 AM CDT [facility] Blood BLOOD SPECIMEN / Unknown Lab Venipuncture / Unknown 07/10/2024 4:26 AM CDT 07/10/2024 5:01 AM CDT Narrative [facility] - 07/10/2024 5:17 AM CDT HbA1c [...] LAB - CHEMISTRY ORDERABLES Fi nal Result [facility] [place] [address] * (ABNORMAL) COMPREHENSIVE METABOLIC PANEL (07/10/2024 4:26 AM CDT) Glucose 120(H) 70 - 99 mg/dL 07/10/2024 5:21 AM CDT [facility] Sodium 142 136 - 145 mmol/L 07/10/2024 5:21 AM [facility] Potassium 4.3 3.5 - 5.1 mmol/L 07/10/2024 5:21 AM [facility] Chloride 113(H) 98 - 107 mmol/L 07/10/2024 5:21 AM [facility] CO2 22 22 - 29 mmol/L 07/10/2024 5:21 AM [facility] Calcium 8.3(L) 8.4 - 10.4 mg/dL 07/10/2024 5:21 AM [facility] Anion Gap 7 6 - 16 mmol/L 07/10/2024 5:21 AM [facility] BUN 7 5.3 - 18.7 mg/dL 07/10/2024 5:21 AM [facility] Creatinine 0.63 0.57 - 1.11 mg/dL 07/10/2024 5:21 AM [facility] Alkaline Phosphatase 74 40 - 150 U/L 07/10/2024 5:21 AM [facility] ALT 30 6 - 57 U/L 07/10/2024 5:21 AM [facility] AST 22 10 - 48 U/L 07/10/2024 5:21 AM [facility] Protein Total 6.1(L) 6.4 - 8.3 gm/dL 07/10/2024 5:21 AM [facility] Albumin 3.2(L) 3.4 - 5.0 gm/dL 07/10/2024 5:21 AM [facility] Bilirubin Total 0.1(L) 0.2 - 1.2 mg/dL 07/10/2024 5:21 AM [facility] eGFR by CKD-EPI >90 >=90 mL/min/1.7 3 m2 07/10/2024 5:21 AM [facility] Blood BLOOD SPECIMEN / Unknown Lab Venipuncture / Unknown 07/10/2024 4:26 AM CDT 07/10/2024 5:01 AM [facility] us Chanda Gautam MD LAB - CHEMISTRY ORDERABLES Fi nal Result [facility] [address] [address] * MAGNESIUM BLOOD (07/10/2024 4:26 AM CDT) Magnesium 2.0 1.6 - 2.6 mg/dL 07/10/2024 5:21 AM CDT [facility] Blood BLOOD SPECIMEN / Unknown Lab Venipuncture / Unknown 07/10/2024 4:26 AM CDT 07/10/2024 5:01 AM CDT Chanda Gautam MD LAB - CHEMISTRY ORDERABLES Fi nal Result [facility] [address] [id number] * XR Pelvis W Right Hip 2Vw [...] - 99 mg/dL 07/13/2024 12:12 PM CDT [facility] Specimen Type Cap Fingerstick 2024 12:12 PM CDT [facility] Blood BLOOD SPECIMEN / Unknown 07/09/2024 2:27 PM CDT 07/13/2024 12:12 PM CDT Baltazar Vigil DO LAB - POINT OF CARE ORDE RABLES Final Result Performing Organization Address [facility]/ZIP Co de Phone Number [facility] [address] [id number] * (ABNORMAL) HGB HCT PANEL (07/09/2024 4:28 AM CDT) [facility] Hemoglobin 10.8(L) 11.9 - 15.8 g/dL 07/09/2024 5:38 AM CDT [facility] Hematocrit 32.8(L) 34.8 - 46.1 % 07/09/2024 5:38 AM CDT [facility] Blood BLOOD SPECIMEN / Unknown Lab Venipuncture / Unknown 07/09/2024 4:28 AM CDT 07/09/2024 5:32 AM CDT Baltazar Vigil DO LAB - HEMATOLOGY ORDERAB LES Final Result Performing Organization Address [facility] Co de Phone Number [facility] [address] [id number] * XR PELVIS 1 OR 2VW (IN PACU) (07/08/2024 4:19 PM CDT) Anatomical Region Laterality Modality Pelvis Radiographic Mary ging 07/08/2024 4:20 PM CDT Narrative 07/08/2024 4:21 PM CDT PROCEDURE(s): XR PELVIS 1 OR 2VW; DATE AND TIME OF EXAM(s): 07/08/2024 4:19 PM; LOCATION: [facility] INDICATION(s): M16.11: Unilateral primary osteoarthritis, right hip [...] AND TIME OF EXAM(s): :19 PM; LOCATION: [facility] INDICATION(s): M16.11: Unilateral primary osteoarthritis, right hip [...] Urine Negative Negative 07/08/2024 8:48 AM CDT [facility] Urine URINE / Unknown 07/08/2024 8 :42 AM CDT 07/08/2024 8:48 AM CDT us Baltazar Vigil DO LAB - POINT OF CARE [place] Final Result [facility] [address] [address] * HCG URINE QUAL POCT NOTIFICATION (07/08/2024 8:40 AM CDT) Comment Notification Label Only - See Separate Report 07/08/2024 10:00 AM CDT [facility] Urine URINE / Unknown 07/08/2024 8 :40 AM CDT 07/08/2024 8:41 AM [facility]T [facility] - URINALYSIS ORDER DILLON Final Result [facility] [address] [address] from Last 3 Months Insurance SELF PAY NO INSURANCE Member Subscriber Plan / Payer (Ef fective for All Dates) Name:Felicia Morel Member ID:Not on file Relation to Subscriber:Self Name:FELICIA MOREL Subscriber ID:Not on file Payer ID:Not on file Group ID:Not on file Type:Self Pay Address: [place], [place] [employer] Advance Directives * Full Code (Latest Code Status on File) Date Activated Date Inactivated Comments 07/08/2024 3:47 PM 07/11/2024 4:43 PM Care Teams Plasma Processing Technician Relationship Specialty Start Date End Date Adams Ricks, CREATIVE WRITER-PRIMARY SUBSTANCE ABUSE COUNSELOR [address] [place] [phone] PCP - General Internal Medicine 07/04/24
--- OUTSIDE RECORDS SUMMARY | 2024-07-25 13:20 | XMS_ITS | Continuity of Care Document ---
Author Organization [facility] Address [address] Saur[address] [place] [address] Phone Care Team Providers Care Street Railway Line Installer Name Role Phone Ana Brown PA-C Unavailable Unavailable Allergies, Adverse Reactions, Alerts Substance Reaction Status Criticality [place] Active No Information morphine Active No Information Medications Medication Instructions Dosage Effective Dates (start - stop) Status Comments oxycodone 5 mg tablet take 1 tablet by oral route every 6 hours as needed; do not exceed 4 tablets daily - Active atorvastatin 20 mg tablet take 1 tablet by oral route every day 20 MG - Active metformin 850 mg tablet take 1 tablet by oral route 2 times every day with morning and evening meals 850 MG - Active Seroquel 50 mg tablet take 1 tablet by oral route 2 times every day 50 MG - Active Viibryd 20 mg tablet take 1 tablet by oral route every day with food 20 MG - Active Wellbutrin XL 150 mg 24 hr tablet, extended release take 1 tablet by oral route every day 150 MG - Active Celebrex 200 mg capsule take 1 capsule by oral route 2 times every day as needed 200 MG - Active clindamycin HCl 300 mg capsule take 1 capsule by oral route every 6 hours 300 MG - No Longer Active Procedures Procedure Date X-RAY HIP UNI W PELVIS 2-3 VIEWS 2024 TOTAL HIP ARTHROPLASTY RADEX SPI LUMBOSAC 2/3 VIEWS X-RAY HIP UNI W PELVIS 2-3 VIEWS 2024 OFFICE/OUTPATIENT VISIT NEW Advance Directives Directive Yes / No Effective Date File Name Other Directive No N/A N/A WARNING:The information contained in this section is historical and is provided for information only and does not constitute a legal document or any assurance that the information is still accurate. Please verify the information with the oakes of the legal document before using it for clinical purposes. Encounters Encounter Description Practice Location Reason(s) For Visit Diagnoses Date Provider Providers Copied on Encounter [facility], [address], [place], [address], [place] tel:[phone] [facility] [place] Unilateral primary osteoarthritis, right hipStatus post right hip replacement Jul-04 10- 5 Stephanie Perez. [address], [place], [address], [place]. tel:[phone] Referring Provider: Mauro Bonilla, [address] [place] [address], [address] . tel:[phone] [facility], [address] [facility] [address], [place], [address], [place] tel:[phone] [facility] Unilateral primary osteoarthritis, right hip Jun-3 5 [place]. [address], [place], [place], [id number] . tel: [phone] [facility], [address] [facility] [address], [place], [address], [place] tel:[phone] [facility] Primary osteoarthritis of right hip Jun-1 5 [place]. [address], [place], [place], [id number] . tel: [phone] [facility], [address] [facility], [place], [address], [place] tel:[phone] [facility] Primary osteoarthritis of right hipEncounter for other preprocedural examinationClass 1 obesity with body mass index (BMI) of 34.0 to 34.9 in adult, unspecified obesity type, unspecified whether serious comorbidity presentBody mass index [BMI] 34.0-34.9, adult Mar-0 - 5 Vigil Humberto er. [address], [place], [place], [id number] . tel: [phone] OFFICE/OUTPA TIENT VISIT NEW [facility], [address], [place], [address], [place] tel:[phone] [facility] [place] Right hip painPrimary osteoarthritis of right hip 5 [place]. [address], [place], [place], [id number] . tel: [phone] Referring Provider: Mauro Bonilla, [address] [place] [address], [address] . tel:[phone] Family History Family Member Type Diagnosis Age At Onset No Information Payers Payer name Insurance type Covered democrat ID Sedrick pugh(kosta [place] Open Access [place] OT [id number] Social History Type Description Quantity Date Captured Comments Alcohol Use Details Unknown Caffeine Use Details Unknown Tobacco Use Status Current non-smoker Smoking Status Never smoker Non-Smoking Tobacco Use Details : No Details Available : No Details Available Sex Female Chief Complaint And Reason For Visit No Information Reason For Referral Reason For Referral No Information Plan Of Treatment Date Type Action Status Referral Ordered: UPR/LXTR OTTONIEL DUPLEX STDY UNI/LMTD RT leg Appointment date/timeframe: 07/20/2024 ordered Referral Ordered: CT Lower Extr w/o Contrast RT hip Appointment date/timeframe: 06/29/2024 ordered Referral Ordered: RADEX SPI LUMBOSAC 2/3 VIEWS RT hip ordered Referral Ordered: X-RAY HIP UNI W PELVIS 2-3 VIEWS RT hip ordered Appointment Felicia Lobo Cancelled Appointment Felicia Lobo Scheduled History Of Present Illness Encounter Date Complaint History Of Prese nt Illness No Information Functional Status Date Functional Assessmen t No Information Instructions Date Instruction Additional Infor mation No Information Assessments Type Assessment Date assessment Unilateral primary osteoarthriti s, right hip assessment Status post right hip replacemen t Patient Care Teams Name Effective Dates (start - stop) Status Members No Information
--- OUTSIDE RECORDS SUMMARY | 2024-07-25 13:20 | XMS_ITS | Encounter Summary ---
Author Organization [facility] Address Formerly [facility] [place] [address] Care Team Providers Care Health Care Coach Name Role Phone Adams Ricks NP Primary Care Provi shaheen Encounter Details Date Type Department Care Team ([facility] st Contact Info) Description 09/11/2018 Abstract [facility] CONVERSION [address] [place] [address] , Generic Conversion, Social History Tobacco Use Types Packs/Day Years Used Date Smoking Tobacco: Never Assessed Comments Unknown Sex and Gender Information Value Date Recorded Sex Assigned at Female 04/26/2024 4:35 PM CULINARY DIRECTOR Legal Sex Female 7:07 PM CDT Gender Identity Not on file Sexual Orientation Not on file documented as of this encounter Plan of Treatment Not on file documented as of this encounter Visit Diagnoses Not on filedocumented in this encounter Additional Health Concerns Infection Onset Date Last Indicated Resolved Time COVID-19 Rule Out 05/25/2023 05/25/2023 05/25/2023 5:45 PM CULINARY DIRECTOR COVID-19 Rule Out 03/02/2024 03/02/2024 03/02/2024 12:25 PM CULINARY DIRECTOR documented as of this encounter Care Teams Health Care Coach Relationship Specialty Start Date End Date Adams Ricks NP [address] [place] [id number] PCP - General Nurse Practitioner Family 06/26/22 documented as of this encounter
--- OUTSIDE RECORDS SUMMARY | 2024-07-25 13:20 | XMS_ITS | Encounter Summary ---
Author Organization [facility] Address [address] [place] [address] Care Team Providers Care Children'S Counselor Name Role Phone Héctor Rodriguez MD Primary Care Provider Unavailable Adams Ricks NP Primary Care Provi shaheen Encounter Details Date Type Department Care Team (Late st Contact Info) Description 02/07/2017 [place] [address] Héctor Rodriguez MD Social History Tobacco Use Types Packs/Day Years Used Date Smoking Tobacco: Never Assessed Comments Unknown Sex and Gender Information Value Date Recorded Sex Assigned at Female 04/26/2024 4:[address]PERVISOR Legal Sex Female 7:07 PM CDT Gender Identity Not on file Sexual Orientation Not on file documented as of this encounter Plan of Treatment Not on file documented as of this encounter Visit Diagnoses Not on filedocumented in this encounter Additional Health Concerns Infection Onset Date Last Indicated Resolved Time COVID-19 Rule Out 05/25/2023 05/25/2023 05/25/2023 5:[address]PERVISOR COVID-19 Rule Out 03/02/2024 03/02/2024 03/02/2024 12:[address]PERVISOR documented as of this encounter Care Teams Children'S Counselor Relationship Specialty Start Date End Date Héctor Rodriguez MD PCP - General 02/27/14 06/17/17 Adams Ricks NP [address] [place] [id number] PCP - General Nurse Practitioner Family 06/26/22 documented as of this encounter
--- OUTSIDE RECORDS SUMMARY | 2024-07-25 13:21 | XMS_ITS | Clinical Summary ---
Author Organization [facility] Address [address] [place] [address] Care Team Providers Care Automation Driver Name Role Phone Adams Ricks EXTRUDER Primary Care Provi shaheen Allergies Active Allergy [...] Department Care Team Description 04/26/2024 4:37 PM TERMITE CONTROL SERVICE REPRESENTATIVE - 04/26/2024 11:59 PM TERMITE CONTROL SERVICE REPRESENTATIVE Hospital Encounter [facility] [address] [id number] Pancho Colon, PT Lillian Montes, PT Hip [...] Sex Assigned at Female 04/26/2024 4:35 PM TERMITE CONTROL SERVICE REPRESENTATIVE Legal Sex Female 7:07 PM CDT Gender Identity Not on file Sexual Orientation Not on file Last Filed Vital Signs Vital Sign Reading Time Taken Comments Blood Pressure 110/58 03/02/2024 1:00 PM TERMITE CONTROL SERVICE REPRESENTATIVE Pulse 73 03/02/2024 1:00 PM TERMITE CONTROL SERVICE REPRESENTATIVE Temperature 36.6 C (97.8 F) 03/02/2024 11:23 AM TERMITE CONTROL SERVICE REPRESENTATIVE Respiratory Rate 16 03/02/2024 1:00 PM TERMITE CONTROL SERVICE REPRESENTATIVE Oxygen Saturation 93% 03/02/2024 1:00 PM TERMITE CONTROL SERVICE REPRESENTATIVE Inhaled Oxygen Concentration - - Weight 102.1 kg (225 lb) 04/13/2024 9:22 AM TERMITE CONTROL SERVICE REPRESENTATIVE Height 167.6 cm (5' 6 ) 04/13/2024 9:22 AM TERMITE CONTROL SERVICE REPRESENTATIVE Body Mass Index 36.32 04/13/2024 9:22 AM TERMITE CONTROL SERVICE REPRESENTATIVE Plan of Treatment Health Maintenance Due Date [...] complete this topic Insurance DAVE Care Teams Automation Driver Relationship Specialty Start Date End Date Adams Ricks NP [address] [place] [phone] PCP - General Nurse Practitioner Family 06/26/22
== END 2024-07-25 13:50 | disposition home or self-care (01) ==
PROVIDERS: Emergency Provider Family Medicine; PCP Registered Nurse
DX: R42 Dizziness and giddiness (principal); H53.8 Other visual disturbances; Z87.891 Personal history of nicotine dependence
CPT/HCPCS: 70450; 96372; 99284; A9270; J1885

== ENCOUNTER 2024-09-01 06:55 | Outpatient (CLI) | payer OTHER, SELFPAY ==
--- NOTE | ~2024-09-01 | MR_ITS ---
EXAMINATION: MR hip RT wo con DATE: 09/01/2024 07:55 INDICATION: Status post right hip replacement TECHNIQUE: Magnetic resonance imaging (MRI) of the right hip was performed without intravenous contr ast. Sequences included full-field axial fluid sensitive FSE STIR and T1-weighted FSE, coronal of the pelvis with T1-weighted FSE, PD-weighted FS FSE and fluid sensitive FSE STIR, small field of view of the right hip with axial, sagittal and coronal fluid sensitive FSE STIR and oblique axial and obliq ue coronal FIESTA obtained parallel and perpendicular to the axis of the right femoral neck. COMPARISON: None FINDINGS: Bones: There is metallic magnetic field artifact associated with bilateral total hip arthroplasties. Alignme nt is normal. No fracture or pathologic marrow replacing process. Fluid: Physiologic amount fluid at the left hip joint. There is a right hip joint effusion with 5.3 x 3 x 3. 5 cm fluid collection extending into the surgical defect anterior to the femoral neck. There is some subcutaneous edema in the surrounding soft tissues. Soft tissues: No asymmetric muscular atrophy of the musculature of the pelvis and visualized proximal thighs. There is mild likely reactive edema in the proximal right quadriceps musculature and in the right obturato r externus muscle. The iliopsoas and proximal hamstring tendons are normal. There is partial tear of the left gluteus medius tendon with attenuation of the tendon and proximal migration of the myotendin ous junction which is positioned approximately 2.5 cm proximal to the greater trochanteric insertion. The right-sided and remaining left-sided gluteal tendons are normal. Limited evaluation of visceral organs of the pelvis is unremarkable. No pathologically enlarged pelvic/inguinal lymphadenopathy. IMPRESSION: 1. Bilateral total hip arthroplasties, relatively recent on the right where a right hip joint effusio n is contiguous with a 5 x 3.5 x 3 cm fluid collection extending into the deep aspect of the surgical wound. Reviewed, dictated and finalized at location A. IMPRESSION: 1. Bilateral total hip arthroplasties, relatively recent on the right where a r ight hip joint effusion is contiguous with a 5 x 3.5 x 3 cm fluid collection ex tending into the deep aspect of the surgical wound.
--- OUTSIDE RECORDS SUMMARY | 2024-09-01 07:00 | XMS_ITS | Continuity of Care Document ---
Author Organization [facility] Address [address] [address]aur[address] Bruce [address] [place] [address] Phone Care Team Providers Care Public Policy Manager Name Role Phone Ana Brown PA-C Unavailable Unavailable Allergies, Adverse Reactions, Alerts Substance Reaction Status Criticality [place] Active No Information morphine Active No Information Medications Medication Instructions Dosage Effective Dates (start - stop) Status Comments gabapentin 600 mg tablet take 1 tablet by oral route 3 times every day 600 MG - Active atorvastatin 20 mg tablet take 1 tablet by oral route every day 20 MG - Active metformin 850 mg tablet take 1 tablet by oral route 2 times every day with morning and evening meals 850 MG - Active Seroquel 50 mg tablet take 1 tablet by o ral route 2 times every day 50 MG - Active Viibryd 20 mg tablet take 1 tablet by or al route every day with food 20 MG - Active Wellbutrin XL 150 mg 24 hr tablet, extended release take 1 tablet by oral route every day 150 MG - Active Celebrex 200 mg capsule take 1 capsule by oral route 2 times every day as needed 200 MG - Active Procedures Procedure Date X-RAY HIP UNI W PELVIS 2-3 VIEWS 2024 POSTOP FOLLOW-UP VISIT POSTOP FOLLOW-UP VISIT X-RAY HIP UNI W PELVIS 2-3 VIEWS 2024 POSTOP FOLLOW-UP VISIT X-RAY HIP UNI W PELVIS 2-3 VIEWS [...] Providers Copied on Encounter [facility], [address], [place], [place], [facility], tel:[phone] [facility] [place] Status post right hip replacementUnil ateral primary osteoarthritis, right hip August- 5 Stephanie Perez. [address], [place], [place], [facility], . tel:[phone] Referring Provider: Mauro Bonilla, [address] [place] [address], [id number] . tel:[phone] [facility], [address], [place], [place], [facility], tel:[phone] [facility] Status post right hip replacementUnil ateral primary osteoarthritis, right hip 0 5 Abhinav Joshi. [address], [place], [place], [address] [place] [address], . tel:[phone] Referring Provider: Mauro Bonilla, [address] [place] [address], [address] . tel:[phone] [facility], [address], [place], [place], [facility], tel:[phone] [facility] [place] Status post right hip replacement 5 Stephanie Perez. [address], [place], [place], [facility], . tel:[phone] Referring Provider: Mauro Bonilla, [address] [place] [address], [address] . tel:[phone] [facility], [address], [place], [address], [place] tel:[phone] [facility] [place] Unilateral primary osteoarthritis, right hipStatus post right hip replacement Jul- 5 Stephanie Perez. [address], [place], [address], [place]. tel:[phone] Referring Provider: Mauro Bonilla, [address] [place] [address], [address] . tel:[phone] [facility], [address] [address], [place], [address], [place] tel:[phone] [facility] Unilateral primary osteoarthritis, right hip Jun-3 5 Musa Ledesma . [address], [place], [place], [id number]. tel:[phone] [facility], [address] [address], [place], [address], [place] tel:[phone] [facility] Primary osteoarthritis of right hip Jun- 5 Musa Ledesma . [address], [place], [place], [id number]. tel:[phone] [facility], [address] [address], [place], [address], [place] tel:[phone] [facility] Primary osteoarthritis of right hipEncounter for other preprocedural examinationClas s 1 obesity with body mass index (BMI) of 34.0 to 34.9 in adult, unspecified obesity type, unspecified whether serious comorbidity presentBody mass index [BMI] 34.0-34.9, adult Mar-0 - 5 Musa Ledesma . [address], [place], [place], [id number]. tel:[phone] OFFICE/OUTPA TIENT VISIT NEW [facility], [address], [place], [address], [place] tel:[phone] [facility] [place] Right hip painPrimary osteoarthritis of right hip Feb-0 5 Musa Ledesma . [address], [place], [place], [id number]. tel:[phone] Referring Provider: Mauro Bonilla, [address] [place] [address], [address] . tel:[phone] Family History Family Member Type Diagnosis Age At Onset No Information Payers Payer name Insurance type Covered green party ID Sedrick pugh(kosta [place] Open Access [place] OT [id number] Social History Type Description Quantity Date Captured Comments Alcohol Use Details Unknown Caffeine Use Details Unknown Tobacco Use Status Current non-smoker Smoking Status Never smoker Sex Female Chief Complaint And Reason For Visit No Information Reason For Referral Reason For Referral No Information Plan Of Treatment Date Type Action Status Referral Ordered: MRI JT Lower w/o Contrast RT hip Appointment date/timeframe: 09/01/2024 ordered Referral Ordered: UPR/LXTR OTTONIEL DUPLEX STDY UNI/LMTD RT leg Appointment date/timeframe: 07/20/2024 ordered Referral Ordered: CT Lower Extr w/o Contrast RT hip Appointment date/timeframe: 06/29/2024 ordered Referral Ordered: RADEX SPI LUMBOSAC 2/3 VIEWS RT hip ordered Referral Ordered: X-RAY HIP UNI W PELVIS 2-3 VIEWS RT hip ordered Appointment Felicia Lobo Scheduled History Of Present Illness Encounter Date Complaint History Of Prese nt Illness No Information Functional Status Date Functional Assessmen t No Information Instructions Date Instruction Additional Infor mation No Information Assessments Type Assessment Date assessment Status post right hip replacemen t assessment Unilateral primary osteoarthriti s, right hip Patient Care Teams Name Effective Dates (start - stop) Status Members No Information
--- OUTSIDE RECORDS SUMMARY | 2024-09-01 07:00 | XMS_ITS | Clinical Summary ---
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 This disclosure is being madepursuant to the Care Everywhere program and may not contain all information available regarding this patient. Last updated 17.[facility] Allergies Active Allergy Reactions Criticality Noted Date [...] daily Ok to take day of surgery 4 Active buPROPion XL 24hr (Wellbutrin XL) 150 MG tablet Take 1 (one) tablet by mouth once daily Ok to take day of surgery Active vitamin D, ergocalciferol, (Drisdol) 1.25 MG (36786 UT) capsule Take 1 (one) capsule by mouth every 7 days Thursday Hold day of surgery 4 Active LORazepam (Ativan) 0.5 MG tablet Take 1 (one) tablet by mouth as needed Ok to take day of surgery 4 Active metFORMIN (Glucophage) 850 MG tablet Take by mouth every 12 hours Hold day of surgery Active QUEtiapine (SEROquel) 50 MG tablet Take 1 (one) tablet by mouth at bedtime 5 Active Viibryd 20 MG tablet Take 1 (one) tablet by mouth once daily Ok to take day of surgery 4 Active pregabalin (Lyrica) 75 MG capsule Take 1 (one) capsule by mouth 2 times daily 60 capsule 5 Active tranexamic acid (Lysteda) 650 MG tablet Take 2 (two) tablets by mouth 3 times daily 15 tablet 5 Active celecoxib (CeleBREX) 100 MG capsuleIndications: Acute Pain Take 1 (one) capsule by mouth 2 times daily Reasons: Acute Pain 120 capsule 5 Active oxyCODONE, immediate release, (Roxicodone) 5 MG tabletIndications:P rimary osteoarthritis of right hip Take 1 (one) tablet by mouth every 6 hours as needed for Pain 28 tablet 5 Active hydrOXYzine HCl (Atarax) 25 MG tabletIndications:A nxiety,Nervousness Take 1 (one) tablet by mouth 3 times daily as needed for Itching Reasons: Feeling Anxious, Feeling Tense 90 tablet 5 Active cyclobenzaprine (Flexeril) 10 MG tablet Take 1 (one) tablet by mouth 3 times daily as needed for Muscle Spasms 90 tablet 5 Active Sennosides-Docusate Sodium (Senna-Docusate Sodium) 8.6-50 MG Take 1 (one) tablet by mouth 2 times daily 60 tablet 5 Active aspirin (Aspirin) 325 MG tablet Take 1 (one) tablet by mouth 2 times daily for 35 days 70 tablet 5 08/13/19 25 Active Problems Problem Noted Date Diagnosed Date Primary osteoarthritis of right hip 07/08/2024 Hip pain 09/24/2012 Encounters Date Type Department Care Team Description 07/08/2024 11:47 AM CDT Anesthesia Event [facility] [address] [address] Nicole Roland MD Reddy, Jorge Burns MD 07/08/2024 10:46 AM CDT - 07/08/2024 1:28 PM CDT Surgery [facility] [address] [address] Blatazar Vigil, ROBOTIC ASSISTED ARTHROPLASTY TOTAL HIP (ANTERIOR) 07/08/2024 8:14 AM CDT - 07/11/2024 3:42 PM CDT Hospital Encounter [facility] [address] [address] Baltazar Vigil, Surgery Orthopedics Discharge Disposition: Home or Self Care 07/08/2024 Travel 07/04/2024 7:30 AM CDT - 07/04/2024 11:59 PM CDT Hospital Encounter [facility] [address] [address] Baltazar Vigil, Orthopedics Discharge Disposition: Home or Self Care [...] on file 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 Gender Identity Not on file Sexual Orientation [...] 8:39 AM CDT Height 167.6 cm (5' 6) 07/08/2024 8:39 AM CDT Body Mass Index 34.7 07/08/2024 8:39 AM CDT Plan of Treatment Health Maintenance Due Date Last Done Comments PAP SMEAR 1993 HIV SCREENING 2008 HEPATITIS [...] this topic Medical Devices Implanted Type Area Sales Specialist Device Identifier Shelf Expiration Date Model / Serial / Lot Shell Actb 48mm Hip 3 Screw Hl Clstr Implanted:Qty: 1 on 07/08/2024 by Baltazar Vigil DO at [facility] Right: Hip [employer] 03/10/2029 702-04-48D / / [id number] Impl Hip Stm 99mm Nk 36mm Insg 2 Hi Stm Implanted:Qty: 1 on 07/08/2024 by Baltazar Vigil DO at [facility] Right: Hip [employer] 10/11/2028 [id number] / / [id number] Liner Actb Mdm D 38mm Cocr Hip 22.2mm Implanted:Qty: 1 on 07/08/2024 by Baltazar Vigil DO at [facility] Right: Hip [employer] 05/23/2029 [id number] / / [id number] Head Fem +0mm Ofst Tpr 28mm Hip Blx D Implanted:Qty: 1 on 07/08/2024 by Baltazar Vigil DO at [facility] Right: Hip [employer] 12/16/2028 [id number] / / [id number] Mdm X3 Insert For Mdm Liner, 38d Implanted:Qty: 1 on 07/08/2024 by Baltazar Vigil DO at [facility] Right: Hip [employer] 02/06/2029 [id number] / / [id number] Procedures [...] PM CDT Primary osteoarthritis of right hip CT TOTAL HIP REPLACEMENT 07/08/2024 11:41 AM CDT Special Needs 120 MIN, AMY DAS CONFIRMED [phone] LR 06/29 PERIPHERAL BLOCK Routine 07/08/2024 10:04 [...] - 10.7 x10E9/L 07/11/2024 8:27 AM CDT [facility] RBC Count 3.99 3.90 - 5.20 x10E12/L 07/11/2024 8:27 AM CDT [facility] Hemoglobin 12.8 11.9 - 15.8 g/dL 07/11/2024 8:27 AM CDT [facility] Hematocrit 39.9 34.8 - 46.1 % 07/11/2024 8:27 AM CDT [facility] MCV 100.0(H) 80.0 - 98.0 fL 07/11/2024 8:27 AM CDT [facility] MCH 32.1 26.7 - 33.6 pg 07/11/2024 8:27 AM CDT [facility] MCHC 32.1 31.7 - 36.3 g/dL 07/11/2024 8:27 AM CDT [facility] RDW-CV 13.6 11.3 - 14.8 % 07/11/2024 8:27 AM CDT [facility] Platelet Count 415 150 - 420 x10E9/L 07/11/2024 8:27 AM CDT [facility] MPV 9.7 7.8 - 11.4 fL 07/11/2024 8:27 AM [facility] Blood BLOOD SPECIMEN / Unknown Lab Venipuncture / Unknown 07/11/2024 8:13 AM CDT 07/11/2024 8:25 AM CDT us Chanda Gautam MD LAB - HEMATOLOGY ORDERABLES F inal Result [facility] [address] [place] [address] * (ABNORMAL) BASIC METABOLIC PANEL (CALCIUM TOTAL) (07/11/2024 8:00 AM CDT) Only the most recent of2 resultswithin the time period is included. Pathologist [facility] [place] Glucose 81 70 - 99 mg/dL 07/11/2024 9:17 AM CDT [facility] Sodium 140 136 - 145 mmol/L 07/11/2024 9:17 AM CDT [facility] Potassium 3.8 3.5 - 5.1 mmol/L 07/11/2024 9:17 AM CDT [facility] Chloride 109(H) 98 - 107 mmol/L 07/11/2024 9:17 AM CDT [facility] CO2 22 22 - 29 mmol/L 07/11/2024 9:17 AM CDT [facility] Calcium 9.7 8.4 - 10.4 mg/dL 07/11/2024 9:17 AM CDT [facility] Anion Gap 9 6 - 16 mmol/L 07/11/2024 9:17 AM CDT [facility] BUN 6 5.3 - 18.7 mg/dL 07/11/2024 9:17 AM CDT [facility] Creatinine 0.70 0.57 - 1.11 mg/dL 07/11/2024 9:17 AM CDT [facility] eGFR by CKD-EPI >90 >=90 mL/min/1.7 3 m2 07/11/2024 9:17 AM CDT [facility] Blood BLOOD SPECIMEN / Unknown Lab Venipuncture / Unknown 07/11/2024 8:00 AM CDT 07/11/2024 8:25 AM CDT Chanda Gautam MD LAB - CHEMISTRY ORDERABLES Fi nal Result [facility] [address] [place] [address] * HEMOGLOBIN A1C (07/10/2024 4:26 AM CDT) Hemoglobin A1c 5.3 <5.7 % 07/10/2024 5:17 AM CDT [facility] Estimated Average Glucose 105 mg/dL 07/10/2024 5:17 AM CDT [facility] Blood BLOOD SPECIMEN / Unknown Lab Venipuncture / Unknown 07/10/2024 4:26 AM CDT 07/10/2024 5:01 AM CDT Narrative [facility] - 07/10/2024 5:17 AM [...] National Glycohemoglobin Standardization Program (NGSP) certified method. Chanda Gautam MD LAB - CHEMISTRY ORDERABLES nal Result [facility] [address] [place] [address] * (ABNORMAL) COMPREHENSIVE METABOLIC PANEL (07/10/2024 4:26 AM CDT) Pathologist [facility] [place] Glucose 120(H) 70 - 99 mg/dL 07/10/2024 5:21 AM CDT [facility] Sodium 142 136 - 145 mmol/L 07/10/2024 5:21 AM CDT [facility] Potassium 4.3 3.5 - 5.1 mmol/L 07/10/2024 5:21 AM CDT [facility] Chloride 113(H) 98 - 107 mmol/L 07/10/2024 5:21 AM CDT [facility] CO2 22 22 - 29 mmol/L 07/10/2024 5:21 AM CDT [facility] Calcium 8.3(L) 8.4 - 10.4 mg/dL 07/10/2024 5:21 AM CDT [facility] Anion Gap 7 6 - 16 mmol/L 07/10/2024 5:21 AM CDT [facility] BUN 7 5.3 - 18.7 mg/dL 07/10/2024 5:21 AM CDT [facility] Creatinine 0.63 0.57 - 1.11 mg/dL 07/10/2024 5:21 AM T [facility] Alkaline Phosphatase 74 40 - 150 U/L 07/10/2024 5:21 AM T [facility] ALT 30 6 - 57 U/L 07/10/2024 5:21 AM T [facility] AST 22 10 - 48 U/L 07/10/2024 5:21 AM T [facility] Protein Total 6.1(L) 6.4 - 8.3 gm/dL 07/10/2024 5:21 AM T [facility] Albumin 3.2(L) 3.4 - 5.0 gm/dL 07/10/2024 5:21 AM [facility] Bilirubin Total 0.1(L) 0.2 - 1.2 mg/dL 07/10/2024 5:21 AM [facility] eGFR by CKD-EPI >90 >=90 mL/min/1.7 3 m2 07/10/2024 5:21 AM T [facility] Blood BLOOD SPECIMEN / Unknown Lab Venipuncture / Unknown 07/10/2024 4:26 AM CDT 07/10/2024 5:01 AM CDT Chanda Gautam MD LAB - CHEMISTRY ORDERABLES Fi nal Result [facility] [address] [place] [address] * MAGNESIUM BLOOD (07/10/2024 4:26 AM CDT) Pathologist [facility] [place] Magnesium 2.0 1.6 - 2.6 mg/dL 07/10/2024 5:21 AM T [facility] Blood BLOOD SPECIMEN / Unknown Lab Venipuncture / Unknown 07/10/2024 4:26 AM CDT 07/10/2024 5:01 AM CDT Chanda Gautam MD LAB - CHEMISTRY ORDERABLES Fi nal Result [facility] [address] [address] * XR Pelvis W Right Hip 2Vw [...] - 99 mg/dL 07/13/2024 12:12 PM CDT [facility] Specimen Type Cap Fingerstick 2024 12:12 PM CDT [facility] Blood BLOOD SPECIMEN / Unknown 07/09/2024 2:27 PM CDT 07/13/2024 12:12 PM CDT Baltazar Vigil DO LAB - POINT OF CARE ORDE RABLES Final Result [facility] [address] [address] * (ABNORMAL) HGB HCT PANEL (07/09/2024 4:28 AM CDT) Hemoglobin 10.8(L) 11.9 - 15.8 g/dL 07/09/2024 5:38 AM CDT [facility] Hematocrit 32.8(L) 34.8 - 46.1 % 07/09/2024 5:38 AM CDT [facility] Blood BLOOD SPECIMEN / Unknown Lab Venipuncture / Unknown 07/09/2024 4:28 AM CDT 07/09/2024 5:32 AM CDT us Baltazar Vigil DO LAB - HEMATOLOGY ORDERAB LES Final Result [facility] [address] [address] * XR PELVIS 1 OR 2VW (IN PACU) (07/08/2024 4:19 PM CDT) Anatomical Region Laterality Modality Pelvis Radiographic Mary ging 07/08/2024 4:20 PM CDT Narrative 07/08/2024 4:21 PM CDT PROCEDURE(s): XR PELVIS 1 OR 2VW; DATE AND TIME OF EXAM(s): 07/08/2024 4:19 PM; LOCATION: Located Within [facility] INDICATION(s): M16.11: Unilateral primary osteoarthritis, right hip COMPARISON(s): 03/16/2017. Findings/Impression: Interval right hip arthroplasty. No hardware complication, fracture or malalignment. Expected soft tissue changes are noted. Stable appearance of the left hip arthroplasty. > Interpreting Provider: Audie Reid DO on 07/08/2024 4:21 PM Procedure Note Audie Reid DO - 07/08/2024 PROCEDURE(s): XR PELVIS 1 OR 2VW; DATE AND TIME OF EXAM(s): 54:19 PM; LOCATION: Located Within [facility] INDICATION(s): M16.11: Unilateral primary osteoarthritis, right hip COMPARISON(s): 03/16/2017. Findings/Impression: Interval right hip arthroplasty. No hardware complication, fracture or malalignment. Expected soft tissue changes are noted. Stable appearance of the left hip arthroplasty. > Interpreting Provider: Audie Reid DO on 07/08/2024 4:21 PM Baltazar Stratton Vigil DO DIAGNOSTIC IMAGING ORDER DILLON Final [...] Provider: Jorge Harrison MD, Performed the procedure Jorge Harrison MD GENERAL ANESTHESIA ORD ERABLES Final Result * HCG URINE QUALITATIVE - POCT (IP) INTERFACED (07/08/2024 8:42 AM CDT) HCG Qual Urine Negative Negative 07/08/2024 8:48 AM CDT [facility] Urine URINE / Unknown 07/08/2024 8 :42 AM CDT 07/08/2024 8:48 AM CDT Baltazar Vigil DO LAB - POINT OF CARE ORDE RABLES Final Result Performing Organization Address City/[facility]/ZIP Co de Phone Number [facility] [address] [address] * HCG URINE QUAL POCT NOTIFICATION (07/08/2024 8:40 AM CDT) Comment Notification Label Only - See Separate Report 07/08/2024 10:00 AM CDT [facility] Urine URINE / Unknown 07/08/2024 8 :40 AM CDT 07/08/2024 8:41 AM CDT Nicole Roland MD LAB - URINALYSIS ORDER DILLON Final Result Performing Organization Address City/[facility]/ZIP Co de Phone Number [facility] [address] [place] [address] from Last 3 Months Insurance SELF PAY NO INSURANCE Member Subscriber Plan / Payer (Ef fective for All Dates) Name:Felicia Morel Member ID:Not on file Relation to Subscriber:Self Name:FELICIA MOREL Subscriber ID:Not on file Payer ID:Not on file Group ID:Not on file Type:Self Pay Address: [facility] Address: [facility] [id number] [phone] Advance Directives * Full Code (Latest Code Status on File) Date Activated Date Inactivated Comments 07/08/2024 3:47 PM 07/11/2024 4:43 PM Care Teams Coil Former Relationship Specialty Start Date End Date Adams Ricks, MAR-TRUCK STRIKER [address] [place] [phone] PCP - General Internal Medicine 07/04/24
== END 2024-09-01 06:56 | disposition home or self-care (01) ==
PROVIDERS: PCP Registered Nurse
DX: M16.11 Unilateral primary osteoarthritis, right hip (principal); Z96.641 Presence of right artificial hip joint
CPT/HCPCS: 73721

== ENCOUNTER 2024-09-02 17:28 | Emergency (ER) | payer OTHER, SELFPAY ==
--- NOTE | ~2024-09-02 | US_ITS ---
RIGHT LOWER EXTREMITY VENOUS ULTRASOUND Ordering provider: Ligia Scales PA-C History: . pain throughout hip/thigh, recent hip replacement . Comparison: None. FINDINGS: --COMMON FEMORAL: Patent and free of thrombus. Normal compressibility, phasic flow and augmentation. --PROXIMAL SUPERFICIAL FEMORAL: Patent and free of thrombus. Normal compressibility, phasic flow and augmentation. --DISTAL SUPERFICIAL FEMORAL: Patent and free of thrombus. Normal compressibility, phasic flow and au gmentation. --POPLITEAL: Patent and free of thrombus. Normal compressibility, phasic flow and augmentation. --POSTERIOR TIBIAL: Patent and free of thrombus. Normal compressibility, phasic flow and augmentation . IMPRESSION: Negative right lower extremity venous US. No deep vein thrombosis. Reviewed, dictated and finalized at location A.
--- NOTE | ~2024-09-02 | CT_ITS ---
CT brain wo con Ordering provider: Ligia Scales PA-C History: 29 years Female with . dizziness/LH, near syncope . Comparison: May 27, 2024 Technique: CT of the head without contrast. Radiation reduction technique utilized. The dose-length p roduct was 681 mGy-cm. FINDINGS: BRAIN PARENCHYMA AND CSF SPACES: No midline shift, mass effect or hemorrhage. The brain parenchyma a nd CSF spaces are otherwise normal. VISUALIZED PARANASAL SINUSES: Well aerated. MASTOIDS: Well aerated. BONES: The bones appear intact. SOFT TISSUES: Visualized nasopharynx is normal. Superficial soft tissues are normal. IMPRESSION: No acute intracranial findings. Reviewed, dictated and finalized at location A.
--- NOTE | ~2024-09-02 | XR_ITS ---
XR chest 2V Ordering provider: Ligia Scales PA-C History: 29 years Female with . sob . Comparison: None. FINDINGS: MEDIASTINUM: The cardiac silhouette is not enlarged. LUNGS: No infiltrates, effusions or pneumothorax. OTHER: No free air under the diaphragm. IMPRESSION: No acute cardiopulmonary pathology. Reviewed, dictated and finalized at location A.
--- NOTE | ~2024-09-02 | CT_ITS ---
CTA chest PE protocol Ordering provider: Ligia Scales PA-C History: 29 years Female with . sob, cp, recent surg, +dimer . Comparison: The Technique: CT angiogram chest was performed following timed intravenous injection of contrast. Thin s lice axial images and reformatted coronal images were obtained. Three dimensional reformatted images of the chest were also obtained using a [employer] workstation. . Automated exposure control and iterati ve reconstruction technique were employed. The dose-length product was 695.51 mGy-cm. 100 mL Omnipaqu e 350 was given IV. Findings: PULMONARY ARTERIES: No pulmonary embolus. VISUALIZED THORACIC INLET: Normal. MEDIASTINUM: Aorta/coronary arteries: The thoracic aorta is normal. Heart/other: The heart is not enlarged. Lymph nodes: No mediastinal or hilar adenopathy. LUNGS: No pulmonary nodules or masses. No infiltrates or effusions. No pneumothorax. VISUALIZED UPPER ABDOMEN: the visualized upper abdomen is normal. MUSCULOSKELETAL: Soft tissues: The superficial soft tissues are normal. Bones: Normal spine. IMPRESSION: 1. No pulmonary embolism. 2. No acute cardiopulmonary pathology. Reviewed, dictated and finalized at location A.
--- OUTSIDE RECORDS SUMMARY | 2024-09-02 17:29 | XMS_ITS | Continuity of Care Document ---
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 [address], [place], [place], [facility], . tel:[phone] Referring Provider: Mauro Bonilla, [address] [place] [address], [id number] . tel:[phone] [facility], [address], [place], [place], [facility], tel:[phone] [facility] [place] Status post right hip replacementUnil ateral primary osteoarthritis, right hip 0 5 Abhinav Joshi. [address], [place], [place], [address] [place] [address], . tel:[phone] Referring Provider: Mauro Bonilla, [address] [place] [address], [id number] . tel:[phone] [facility], [address], [place], [place], [facility], tel:[phone] [facility] [place] Status post right hip replacement 5 Stephanie Perez. [address], [place], [place], [facility], . tel:[phone] Referring Provider: Mauro Bonilla, [address] [place] [address], [id number] . tel:[phone] [facility], [address], [place], [address], [place] tel:[phone] [facility] Unilateral primary osteoarthritis, right hipStatus post right hip replacement Jul- 5 Stephanie Perez. [address], [place], [address], [place]. tel:[phone] Referring Provider: Mauro Bonilla, [address] [place] [address], [address] . tel:[phone] [facility], [address] [address], [place], [address], [place] tel:[phone] [facility] Unilateral primary osteoarthritis, right hip Jun-3 5 Musa Ledesma . [address], [place], [place], [id number]. tel:[phone] [facility], [address] [address], [place], [address], [place] tel:[phone] [facility] Primary osteoarthritis of right hip Jun- 5 Musa Ledesma . [address], [place], [place], [id number]. tel:[phone] [facility], [address] [address], [place], [address], [place] tel:[phone] [facility] Primary osteoarthritis of right hipEncounter for other preprocedural examinationClas s 1 obesity with body mass index (BMI) of 34.0 to 34.9 in adult, unspecified obesity type, unspecified whether serious comorbidity presentBody mass index [BMI] 34.0-34.9, adult Mar-0 - 5 Musa Ledesma . [address], [place], [place], [id number]. tel:[phone] OFFICE/OUTPA TIENT VISIT NEW [facility], [address], [place], [address], [place] tel:[phone] [facility] [place] Right hip painPrimary osteoarthritis of right hip Feb-0 5 Musa Ledesma . [address], [place], [place], [id number]. tel:[phone] Referring Provider: Mauro Bonilla, [address] [place] [address], [address] . tel:[phone] Family History Family Member Type Diagnosis Age At Onset No Information Payers Payer name Insurance type Covered green party ID Sedrick pugh(kosta [employer] [place] [id number] Social History Type Description Quantity Date Captured [...]
--- OUTSIDE RECORDS SUMMARY | 2024-09-02 17:29 | XMS_ITS | Clinical Summary ---
Author Organization [facility] Address [address] [facility] [place] [address] Care Team Providers Care Bit Grinder Name Role Phone JenniferAdams shea Shar MANUEL-GEOSPATIAL EXTRACTOR ANALYSIS Primary Care Provide r Source Comments [facility],non-owned Affiliates and Associated Physician Practices is amultiple site organization consisting of ambulatory clinics and hospital sitesin [place], [place], [place] and [place]. This disclosure is being madepursuant to the Care Everywhere program and may not contain all information available regarding this patient. Last updated 17.[facility] Allergies Active Allergy Reactions Criticality Noted Date [...] Active vitamin D, ergocalciferol, (Drisdol) 1.25 MG (66502 UT) capsule Take 1 (one) capsule by [...] Description 07/08/2024 11:47 AM CDT Anesthesia Event [facility] Op [address] [address] Nicole Roland MD Reddy, Jorge Burns MD 07/08/2024 10:46 AM CDT - 07/08/2024 1:28 PM CDT Surgery [facility] Op [address] [address] Baltazar Vigil, ROBOTIC ASSISTED ARTHROPLASTY TOTAL HIP (ANTERIOR) 07/08/2024 8:14 AM CDT - 07/11/2024 3:42 PM CDT Hospital Encounter [facility] [address] [address] Baltazar Vigil, Surgery Orthopedics Discharge Disposition: Home or Self Care 07/08/2024 Travel 07/04/2024 7:30 AM CDT - 07/04/2024 11:59 PM CDT Hospital Encounter [facility] PREADMISSION TESTING [address] [address] Baltazar Vigil, Orthopedics Discharge Disposition: Home or [...] on file 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 Gender Identity Not on file Sexual Orientation [...] this topic Medical Devices Implanted Type Area Attendant Campground Device Identifier Shelf Expiration Date Model / Serial / Lot Shell Actb 48mm Hip 3 Screw Hl Clstr Implanted:Qty: 1 on 07/08/2024 by Baltazar Vigil DO at [facility] Right: Hip [employer] 03/10/2029 702-04-48D / / [id number] Impl Hip Stm 99mm Nk 36mm Insg 2 Hi Stm Implanted:Qty: 1 on 07/08/2024 by Baltazar Vigil DO at [facility] Right: Hip [employer] 10/11/2028 3820-8778 / / [id number] Liner Actb Mdm D 38mm Cocr Hip 22.2mm Implanted:Qty: 1 on 07/08/2024 by Baltazar Vigil DO at [facility] Right: Hip [employer] 05/23/2029 626-00-38D / / [id number] Head Fem +0mm Ofst Tpr 28mm Hip Blx D Implanted:Qty: 1 on 07/08/2024 by Baltazar Vigil DO at [facility] Right: Hip [employer] 12/16/2028 6570-0-128 / / [id number] Mdm X3 Insert For Mdm Liner, 38d Implanted:Qty: 1 on 07/08/2024 by Baltazar Vigil DO at [facility] Right: Hip [employer] 02/06/2029 7236-2-844 / / [id number] Procedures [...] PM CDT Primary osteoarthritis of right hip [place] TOTAL HIP REPLACEMENT 07/08/2024 11:41 AM CDT Special Needs 120 MIN, AMY DAS CONFIRMED [phone] LR 06/29 PERIPHERAL BLOCK Routine 07/08/2024 10:04 [...] - 10.7 x10E9/L 07/11/2024 8:27 AM CDT [facility] RBC Count 3.99 3.90 - 5.20 x10E12/L 07/11/2024 8:27 AM CDT [facility] Hemoglobin 12.8 11.9 - 15.8 g/dL 07/11/2024 8:27 AM CDT [facility] Hematocrit 39.9 34.8 - 46.1 % 07/11/2024 8:27 AM CDT [facility] MCV 100.0(H) 80.0 - 98.0 fL 07/11/2024 8:27 AM CDT [facility] MCH 32.1 26.7 - 33.6 pg 07/11/2024 8:27 AM CDT [facility] MCHC 32.1 31.7 - 36.3 g/dL 07/11/2024 8:27 AM CDT [facility] RDW-CV 13.6 11.3 - 14.8 % 07/11/2024 8:27 AM CDT [facility] Platelet Count 415 150 - 420 x10E9/L 07/11/2024 8:27 AM CDT [facility] MPV 9.7 7.8 - 11.4 fL 07/11/2024 8:27 AM [facility] Blood BLOOD SPECIMEN / Unknown Lab Venipuncture / Unknown 07/11/2024 8:13 AM CDT 07/11/2024 8:25 AM CDT us Chanda Gautam MD LAB - HEMATOLOGY ORDERABLES F inal Result [facility] [address] [place] [address] * (ABNORMAL) BASIC METABOLIC PANEL (CALCIUM TOTAL) (07/11/2024 8:00 AM CDT) Only the most recent of2 resultswithin the time period is included. Pathologist [facility] [place] Glucose 81 70 - 99 mg/dL 07/11/2024 9:17 AM CDT [facility] Sodium 140 136 - 145 mmol/L 07/11/2024 9:17 AM CDT [facility] Potassium 3.8 3.5 - 5.1 mmol/L 07/11/2024 9:17 AM CDT [facility] Chloride 109(H) 98 - 107 mmol/L 07/11/2024 9:17 AM CDT [facility] CO2 22 22 - 29 mmol/L 07/11/2024 9:17 AM CDT [facility] Calcium 9.7 8.4 - 10.4 mg/dL 07/11/2024 9:17 AM CDT [facility] Anion Gap 9 6 - 16 mmol/L 07/11/2024 9:17 AM CDT [facility] BUN 6 5.3 - 18.7 mg/dL 07/11/2024 9:17 AM CDT [facility] Creatinine 0.70 0.57 - 1.11 mg/dL 07/11/2024 9:17 AM CDT [facility] eGFR by CKD-EPI >90 >=90 mL/min/1.7 3 m2 07/11/2024 9:17 AM CDT [facility] Blood BLOOD SPECIMEN / Unknown Lab Venipuncture / Unknown 07/11/2024 8:00 AM CDT 07/11/2024 8:25 AM CDT Chanda Gautam MD LAB - CHEMISTRY ORDERABLES Fi nal Result [facility] [address] [place] [address] * HEMOGLOBIN A1C (07/10/2024 4:26 AM CDT) Hemoglobin A1c 5.3 <5.7 % 07/10/2024 5:17 AM CDT [facility] Estimated Average Glucose 105 mg/dL 07/10/2024 5:17 AM CDT [facility] Blood BLOOD SPECIMEN / Unknown Lab Venipuncture / Unknown 07/10/2024 4:26 AM CDT 07/10/2024 5:01 AM CDT Narrative [facility] - 07/10/2024 5:17 AM CDT [...] MD LAB - CHEMISTRY ORDERABLES nal Result [facility] [address] [place] [address] * (ABNORMAL) COMPREHENSIVE METABOLIC PANEL (07/10/2024 4:26 AM CDT) Pathologist [facility] Glucose 120(H) 70 - 99 mg/dL 07/10/2024 5:21 AM CDT [facility] Sodium 142 136 - 145 mmol/L 07/10/2024 5:21 AM CDT [facility] Potassium 4.3 3.5 - 5.1 mmol/L 07/10/2024 5:21 AM CDT [facility] Chloride 113(H) 98 - 107 mmol/L 07/10/2024 5:21 AM CDT [facility] CO2 22 22 - 29 mmol/L 07/10/2024 5:21 AM CDT [facility] Calcium 8.3(L) 8.4 - 10.4 mg/dL 07/10/2024 5:21 AM CDT [facility] Anion Gap 7 6 - 16 mmol/L 07/10/2024 5:21 AM CDT [facility] BUN 7 5.3 - 18.7 mg/dL 07/10/2024 5:21 AM CDT [facility] Creatinine 0.63 0.57 - 1.11 mg/dL 07/10/2024 5:21 AM T [facility] Alkaline Phosphatase 74 40 - 150 U/L 07/10/2024 5:21 AM T [facility] ALT 30 6 - 57 U/L 07/10/2024 5:21 AM T [facility] AST 22 10 - 48 U/L 07/10/2024 5:21 AM T [facility] Protein Total 6.1(L) 6.4 - 8.3 gm/dL 07/10/2024 5:21 AM T [facility] Albumin 3.2(L) 3.4 - 5.0 gm/dL 07/10/2024 5:21 AM [facility] Bilirubin Total 0.1(L) 0.2 - 1.2 mg/dL 07/10/2024 5:21 AM [facility] eGFR by CKD-EPI >90 >=90 mL/min/1.7 3 m2 07/10/2024 5:21 AM T [facility] Blood BLOOD SPECIMEN / Unknown Lab Venipuncture / Unknown 07/10/2024 4:26 AM CDT 07/10/2024 5:01 AM CDT Chanda Gautam MD LAB - CHEMISTRY ORDERABLES Fi nal Result [facility] [address] [place] [address] * MAGNESIUM BLOOD (07/10/2024 4:26 AM CDT) Pathologist [facility] [place] Magnesium 2.0 1.6 - 2.6 mg/dL 07/10/2024 5:21 AM T [facility] Blood BLOOD SPECIMEN / Unknown Lab Venipuncture / Unknown 07/10/2024 4:26 AM CDT 07/10/2024 5:01 AM CDT Chanda Gautam MD LAB - CHEMISTRY ORDERABLES Fi nal Result [facility] [address] [address] * XR Pelvis W Right Hip 2Vw [...] - 99 mg/dL 07/13/2024 12:12 PM CDT [facility] Specimen Type Cap Fingerstick 2024 12:12 PM CDT [facility] Blood BLOOD SPECIMEN / Unknown 07/09/2024 2:27 PM CDT 07/13/2024 12:12 PM CDT Baltazar Vigil DO LAB - POINT OF CARE ORDE RABLES Final Result [facility] [address] [address] * (ABNORMAL) HGB HCT PANEL (07/09/2024 4:28 AM CDT) Hemoglobin 10.8(L) 11.9 - 15.8 g/dL 07/09/2024 5:38 AM CDT [facility] Hematocrit 32.8(L) 34.8 - 46.1 % 07/09/2024 5:38 AM CDT [facility] Blood BLOOD SPECIMEN / Unknown Lab Venipuncture / Unknown 07/09/2024 4:28 AM CDT 07/09/2024 5:32 AM CDT us Baltazar Vigil DO LAB - HEMATOLOGY ORDERAB LES Final Result [facility] [address] [address] * XR PELVIS 1 OR 2VW (IN PACU) (07/08/2024 4:19 PM CDT) Anatomical Region Laterality Modality Pelvis Radiographic Mary ging 07/08/2024 4:20 PM CDT Narrative 07/08/2024 4:21 PM CDT PROCEDURE(s): XR PELVIS 1 OR 2VW; DATE AND TIME OF EXAM(s): 07/08/2024 4:19 PM; LOCATION: [facility] INDICATION(s): M16.11: Unilateral primary osteoarthritis, right hip [...] AND TIME OF EXAM(s): 54:19 PM; LOCATION: [facility] INDICATION(s): M16.11: Unilateral primary osteoarthritis, right hip [...] Urine Negative Negative 07/08/2024 8:48 AM CDT [facility] Urine URINE / Unknown 07/08/2024 8 :42 AM CDT 07/08/2024 8:48 AM CDT Baltazar Vigil DO LAB - POINT OF CARE ORDE RABLES Final Result Performing Organization Address City/[facility]/ZIP Co de Phone Number [facility] [address] [address] * HCG URINE QUAL POCT NOTIFICATION (07/08/2024 8:40 AM CDT) Comment Notification Label Only - See Separate Report 07/08/2024 10:00 AM CDT [facility] Urine URINE / Unknown 07/08/2024 8 :40 AM CDT 07/08/2024 8:41 AM CDT Nicole Roland MD LAB - URINALYSIS ORDER DILLON Final Result Performing Organization Address City/[facility]/ZIP Co de Phone Number [facility] [address] [place] [address] from Last 3 Months Insurance SELF PAY NO INSURANCE Member Subscriber Plan / Payer (Ef fective for All Dates) Name:Felicia Morel Member ID:Not on file Relation to Subscriber:Self Name:FELICIA MOREL Subscriber ID:Not on file Payer ID:Not on file Group ID:Not on file Type:Self Pay Address: [facility] Advance Directives * Full Code (Latest Code Status on File) Date Activated Date Inactivated Comments 07/08/2024 3:47 PM 07/11/2024 4:43 PM Care Teams Bit Grinder Relationship Specialty Start Date End Date Adams Ricks, MAR-GEOSPATIAL EXTRACTOR ANALYSIS [address] [place] [phone] PCP - General Internal Medicine 07/04/24
[2024-09-02 17:31] VITALS: BP 144/103; PULSE 96; RESP 20; TEMP 36.1; O2SAT 100
--- OUTSIDE RECORDS SUMMARY | 2024-09-02 17:54 | XMS_ITS | Clinical Summary ---
Author Organization [facility] Address [address] [place] [address] Care Team Providers Care Submarine Cable Equipment Technician Name Role Phone JenniferAdams shea Shar MANUEL-SENIOR ADULTS DIRECTOR Primary Care Provide r Source Comments [facility],non-owned Affiliates and Associated Physician Practices is amultiple site organization consisting of ambulatory clinics and hospital sitesin [place], [place], [place] and [place]. This disclosure is being madepursuant to the Care Everywhere program and may not contain all information available regarding this patient. Last updated 17.[facility] Allergies Active Allergy Reactions Criticality Noted Date [...] Active vitamin D, ergocalciferol, (Drisdol) 1.25 MG (95479 UT) capsule Take 1 (one) capsule by [...] Description 07/08/2024 11:47 AM CDT Anesthesia Event [facility] Op [address] [address] Nicole Roland MD Reddy, Jorge Burns MD 07/08/2024 10:46 AM CDT - 07/08/2024 1:28 PM CDT Surgery [facility] Op [address] [address] Baltazar Vigil, ROBOTIC ASSISTED ARTHROPLASTY TOTAL HIP (ANTERIOR) 07/08/2024 8:14 AM CDT - 07/11/2024 3:42 PM CDT Hospital Encounter [facility] [address] [address] Baltazar Vigil, Surgery Orthopedics Discharge Disposition: Home or Self Care 07/08/2024 Travel 07/04/2024 7:30 AM CDT - 07/04/2024 11:59 PM CDT Hospital Encounter [facility] PREADMISSION TESTING [address] [address] Baltazar Vigil, Orthopedics Discharge Disposition: Home or [...] on file 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 Gender Identity Not on file Sexual Orientation [...] this topic Medical Devices Implanted Type Area Branch Or Department Chief Librarian Device Identifier Shelf Expiration Date Model / Serial / Lot Shell Actb 48mm Hip 3 Screw Hl Clstr Implanted:Qty: 1 on 07/08/2024 by Baltazar Vigil DO at [facility] Right: Hip [employer] 03/10/2029 702-04-48D / / [id number] Impl Hip Stm 99mm Nk 36mm Insg 2 Hi Stm Implanted:Qty: 1 on 07/08/2024 by Baltazar Vigil DO at [facility] Right: Hip [employer] 10/11/2028 8102-1250 / / [id number] Liner Actb Mdm D 38mm Cocr Hip 22.2mm Implanted:Qty: 1 on 07/08/2024 by Baltazar Vigil DO at [facility] Right: Hip [employer] 05/23/2029 626-00-38D / / [id number] Head Fem +0mm Ofst Tpr 28mm Hip Blx D Implanted:Qty: 1 on 07/08/2024 by Baltazar Vigil DO at [facility] Right: Hip [employer] 12/16/2028 6570-0-128 / / [id number] Mdm X3 Insert For Mdm Liner, 38d Implanted:Qty: 1 on 07/08/2024 by Baltazar Vigil DO at [facility] Right: Hip [employer] 02/06/2029 7236-2-844 / / [id number] Procedures [...] PM CDT Primary osteoarthritis of right hip [place] TOTAL HIP REPLACEMENT 07/08/2024 11:41 AM CDT Special Needs 120 MIN, AMY DAS CONFIRMED [phone] LR 06/29 PERIPHERAL BLOCK Routine 07/08/2024 10:04 [...] - 10.7 x10E9/L 07/11/2024 8:27 AM CDT [facility] RBC Count 3.99 3.90 - 5.20 x10E12/L 07/11/2024 8:27 AM CDT [facility] Hemoglobin 12.8 11.9 - 15.8 g/dL 07/11/2024 8:27 AM CDT [facility] Hematocrit 39.9 34.8 - 46.1 % 07/11/2024 8:27 AM CDT [facility] MCV 100.0(H) 80.0 - 98.0 fL 07/11/2024 8:27 AM CDT [facility] MCH 32.1 26.7 - 33.6 pg 07/11/2024 8:27 AM CDT [facility] MCHC 32.1 31.7 - 36.3 g/dL 07/11/2024 8:27 AM CDT [facility] RDW-CV 13.6 11.3 - 14.8 % 07/11/2024 8:27 AM CDT [facility] Platelet Count 415 150 - 420 x10E9/L 07/11/2024 8:27 AM CDT [facility] MPV 9.7 7.8 - 11.4 fL 07/11/2024 8:27 AM [facility] Blood BLOOD SPECIMEN / Unknown Lab Venipuncture / Unknown 07/11/2024 8:13 AM CDT 07/11/2024 8:25 AM CDT us Chanda Gautam MD LAB - HEMATOLOGY ORDERABLES F inal Result [facility] [address] [place] [address] * (ABNORMAL) BASIC METABOLIC PANEL (CALCIUM TOTAL) (07/11/2024 8:00 AM CDT) Only the most recent of2 resultswithin the time period is included. Pathologist [facility] Glucose 81 70 - 99 mg/dL 07/11/2024 9:17 AM CDT [facility] Sodium 140 136 - 145 mmol/L 07/11/2024 9:17 AM CDT [facility] Potassium 3.8 3.5 - 5.1 mmol/L 07/11/2024 9:17 AM CDT [facility] Chloride 109(H) 98 - 107 mmol/L 07/11/2024 9:17 AM CDT [facility] CO2 22 22 - 29 mmol/L 07/11/2024 9:17 AM CDT [facility] Calcium 9.7 8.4 - 10.4 mg/dL 07/11/2024 9:17 AM CDT [facility] Anion Gap 9 6 - 16 mmol/L 07/11/2024 9:17 AM CDT [facility] BUN 6 5.3 - 18.7 mg/dL 07/11/2024 9:17 AM CDT [facility] Creatinine 0.70 0.57 - 1.11 mg/dL 07/11/2024 9:17 AM CDT [facility] eGFR by CKD-EPI >90 >=90 mL/min/1.7 3 m2 07/11/2024 9:17 AM CDT [facility] Blood BLOOD SPECIMEN / Unknown Lab Venipuncture / Unknown 07/11/2024 8:00 AM CDT 07/11/2024 8:25 AM CDT Chanda Gautam MD LAB - CHEMISTRY ORDERABLES Fi nal Result [facility] [address] [place] [address] * HEMOGLOBIN A1C (07/10/2024 4:26 AM CDT) Hemoglobin A1c 5.3 <5.7 % 07/10/2024 5:17 AM CDT [facility] Estimated Average Glucose 105 mg/dL 07/10/2024 5:17 AM CDT [facility] Blood BLOOD SPECIMEN / Unknown Lab Venipuncture / Unknown 07/10/2024 4:26 AM CDT 07/10/2024 5:01 AM CDT Narrative [facility] - 07/10/2024 5:17 AM [...] MD LAB - CHEMISTRY ORDERABLES nal Result [facility] [address] [place] [address] * (ABNORMAL) COMPREHENSIVE METABOLIC PANEL (07/10/2024 4:26 AM CDT) Pathologist [facility] Glucose 120(H) 70 - 99 mg/dL 07/10/2024 5:21 AM CDT [facility] Sodium 142 136 - 145 mmol/L 07/10/2024 5:21 AM CDT [facility] Potassium 4.3 3.5 - 5.1 mmol/L 07/10/2024 5:21 AM CDT [facility] Chloride 113(H) 98 - 107 mmol/L 07/10/2024 5:21 AM CDT [facility] CO2 22 22 - 29 mmol/L 07/10/2024 5:21 AM CDT [facility] Calcium 8.3(L) 8.4 - 10.4 mg/dL 07/10/2024 5:21 AM CDT [facility] Anion Gap 7 6 - 16 mmol/L 07/10/2024 5:21 AM CDT [facility] BUN 7 5.3 - 18.7 mg/dL 07/10/2024 5:21 AM CDT [facility] Creatinine 0.63 0.57 - 1.11 mg/dL 07/10/2024 5:21 AM T [facility] Alkaline Phosphatase 74 40 - 150 U/L 07/10/2024 5:21 AM T [facility] ALT 30 6 - 57 U/L 07/10/2024 5:21 AM T [facility] AST 22 10 - 48 U/L 07/10/2024 5:21 AM T [facility] Protein Total 6.1(L) 6.4 - 8.3 gm/dL 07/10/2024 5:21 AM T [facility] Albumin 3.2(L) 3.4 - 5.0 gm/dL 07/10/2024 5:21 AM [facility] Bilirubin Total 0.1(L) 0.2 - 1.2 mg/dL 07/10/2024 5:21 AM [facility] eGFR by CKD-EPI >90 >=90 mL/min/1.7 3 m2 07/10/2024 5:21 AM T [facility] Blood BLOOD SPECIMEN / Unknown Lab Venipuncture / Unknown 07/10/2024 4:26 AM CDT 07/10/2024 5:01 AM CDT Chanda Gautam MD LAB - CHEMISTRY ORDERABLES Fi nal Result [facility] [address] [place] [address] * MAGNESIUM BLOOD (07/10/2024 4:26 AM CDT) Pathologist [facility] Magnesium 2.0 1.6 - 2.6 mg/dL 07/10/2024 5:21 AM T [facility] Blood BLOOD SPECIMEN / Unknown Lab Venipuncture / Unknown 07/10/2024 4:26 AM CDT 07/10/2024 5:01 AM CDT Chanda Gautam MD LAB - CHEMISTRY ORDERABLES Fi nal Result [facility] [address] [address] * XR Pelvis W Right Hip 2Vw [...] - 99 mg/dL 07/13/2024 12:12 PM CDT [facility] Specimen Type Cap Fingerstick 2024 12:12 PM CDT [facility] Blood BLOOD SPECIMEN / Unknown 07/09/2024 2:27 PM CDT 07/13/2024 12:12 PM CDT Baltazar Vigil DO LAB - POINT OF CARE ORDE RABLES Final Result [facility] [address] [address] * (ABNORMAL) HGB HCT PANEL (07/09/2024 4:28 AM CDT) Hemoglobin 10.8(L) 11.9 - 15.8 g/dL 07/09/2024 5:38 AM CDT [facility] Hematocrit 32.8(L) 34.8 - 46.1 % 07/09/2024 5:38 AM CDT [facility] Blood BLOOD SPECIMEN / Unknown Lab Venipuncture / Unknown 07/09/2024 4:28 AM CDT 07/09/2024 5:32 AM CDT us Baltazar Vigil DO LAB - HEMATOLOGY ORDERAB LES Final Result [facility] [address] [address] * XR PELVIS 1 OR 2VW (IN PACU) (07/08/2024 4:19 PM CDT) Anatomical Region Laterality Modality Pelvis Radiographic Mary ging 07/08/2024 4:20 PM CDT Narrative 07/08/2024 4:21 PM CDT PROCEDURE(s): XR PELVIS 1 OR 2VW; DATE AND TIME OF EXAM(s): 07/08/2024 4:19 PM; LOCATION: [facility] INDICATION(s): M16.11: Unilateral primary osteoarthritis, right hip [...] AND TIME OF EXAM(s): 54:19 PM; LOCATION: [facility] INDICATION(s): M16.11: Unilateral primary osteoarthritis, right hip [...] Urine Negative Negative 07/08/2024 8:48 AM CDT [facility] Urine URINE / Unknown 07/08/2024 8 :42 AM CDT 07/08/2024 8:48 AM CDT Baltazar Vigil DO LAB - POINT OF CARE ORDE RABLES Final Result Performing Organization Address City/[facility]/ZIP Co de Phone Number [facility] [address] [address] * HCG URINE QUAL POCT NOTIFICATION (07/08/2024 8:40 AM CDT) Comment Notification Label Only - See Separate Report 07/08/2024 10:00 AM CDT [facility] Urine URINE / Unknown 07/08/2024 8 :40 AM CDT 07/08/2024 8:41 AM CDT Nicole Roland MD LAB - URINALYSIS ORDER DILLON Final Result Performing Organization Address City/[facility]/ZIP Co de Phone Number [facility] [address] [place] [address] from Last 3 Months Insurance SELF PAY NO INSURANCE Member Subscriber Plan / Payer (Ef fective for All Dates) Name:Felicia Morel Member ID:Not on file Relation to Subscriber:Self Name:FELICIA MOREL Subscriber ID:Not on file Payer ID:Not on file Group ID:Not on file Type:Self Pay Address: [facility] Advance Directives * Full Code (Latest Code Status on File) Date Activated Date Inactivated Comments 07/08/2024 3:47 PM 07/11/2024 4:43 PM Care Teams Submarine Cable Equipment Technician Relationship Specialty Start Date End Date Adams Ricks, MAR-SENIOR ADULTS DIRECTOR [address] [place] [phone] PCP - General Internal Medicine 07/04/24
--- OUTSIDE RECORDS SUMMARY | 2024-09-02 17:54 | XMS_ITS | Continuity of Care Document ---
Author Organization [facility] Address [address] Saurav Bruce [address] [place] [address] Phone Care Team Providers Care Business Partner Name Role Phone Ana Brown PA-C Unavailable [...] Providers Copied on Encounter [facility], [address], [place], [place], [facility], tel:[phone] [facility] [place] Status post right hip replacementUnil ateral primary osteoarthritis, right hip August- 5 Stephanie Perez. [address], [place], [facility], . tel:[phone] Referring Provider: Mauro Bonilla, [address] [place] [address], [address] . tel:[phone] [facility], [address], [place], [facility], tel:[phone] [facility] [place] Status post right hip replacementUnil ateral primary osteoarthritis, right hip 0 5 Abhinav Joshi. [address], [place], [address] [place] [address], . tel:[phone] Referring Provider: Mauro Bonilla, [address] [place] [address], [address] . tel:[phone] [facility], [address], [place], [facility], tel:[phone] [facility] [place] Status post right hip replacement 5 Stephanie Perez. [address], [place], [facility], . tel:[phone] Referring Provider: Mauro Bonilla, [address] [place] [address], [address] . tel:[phone] [facility], [address], [place], [address], [place] tel:[phone] [facility] [place] Unilateral primary osteoarthritis, right hipStatus post right hip replacement Jul- 5 Stephanie Perez. [address], [place], [address], [place]. tel:[phone] Referring Provider: Mauro Bonilla, [address] [place] [address], [address] . tel:[phone] [facility], [address] [address], [place], [address], [place] tel:[phone] [facility] Unilateral primary osteoarthritis, right hip Jun-3 5 Musa Ledesma . [address], [place], [place], [id number]. tel:[phone] [facility], [address] [address], [place], [address], [place] tel:[phone] [facility] Primary osteoarthritis of right hip Jun- 5 Musa Ledesma . [address], [place], [place], [address]. tel:[phone] [facility], [address] [address], [place], [address], [place] tel:[phone] [facility] Primary osteoarthritis of right hipEncounter for other preprocedural examinationClas s 1 obesity with body mass index (BMI) of 34.0 to 34.9 in adult, unspecified obesity type, unspecified whether serious comorbidity presentBody mass index [BMI] 34.0-34.9, adult Mar-0 - 5 Musa Ledesma . [address], [place], [place], [id number]. tel:[phone] OFFICE/OUTPA TIENT VISIT NEW [facility], [address], [place], [address], [place] tel:[phone] [facility] [place] Right hip painPrimary osteoarthritis of right hip Feb-0 5 Musa Ledesma . [address], [place], [place], [address]. tel:[phone] Referring Provider: Mauro Bonilla, [address] [place] [address], [address] . tel:[phone] Family History Family Member Type Diagnosis Age At Onset No Information Payers Payer name Insurance type Covered republican ID Sedrick pugh(kosta [place] [employer] Access [employer] [place] [id number] Social History Type Description Quantity Date Captured [...]
--- NOTE | 2024-09-02 18:12 | ECG_ITS ---
Test Date: 2024-09-02 18:31:15 Measurements Intervals Weed Rate: 82 P: 24 CA: 147 QRS: -4 QRSD: 89 T: 3 QT: 374 QTc: 439 Interpretive Statements SINUS RHYTHM LOW QRS VOLTAGE BORDERLINE ECG No previous ECG available for comparison Electronically Signed On 09-03-2024 07:38:18 CDT by Anthony Piña M.D.
--- NOTE | 2024-09-02 18:33 | ED_ITS ---
HPI - Recheck/Abnormal Lab/Rx General Chief Complaint: Recheck/Abnormal Lab/Rx Stated Complaint: HIP REPLACMENT ISSUES Time Seen by Provider: 09/02/24 17:39 Source: patient Mode of arrival: ambulatory Limitations: no limitations History of Present Illness HPI narrative: Patient is a 29 y/o female who presents to the ED with c/o lightheadedness and near-syncope. 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 Vigil at [facility]. States she has had intermittent redness, swelling, warmth to her right hip since the surgery. She had a fall earlier this week onto the hip and was seen in office by her surgeon and was told everything was fine. Was referred to have MRI of hip which she had performed yesterday at outpatient imaging center which showed joint effusion and small fluid collection. Patient reports she has not been able to follow up with her doctor yet. Patient reports persistent pain. Today, she began feeling dizzy, lightheaded, short of breath, near syncopal. She denies LOC. She does admit to history of anxiety and states she has had panicked feeling. Denies chest pain. Denies fevers. She states she feels as though she has an infection of her hip that is making her sick. Related Data Home Medications ?Medication ?Instructions ?Recorded ?Confirmed ?Last Taken ?Type gabapentin 100 mg capsule 100 mg PO TID 07/25/23 03/14/24 02/28/24 History clonidine HCl 0.1 mg tablet 0.1 mg PO TID 02/16/24 03/14/24 02/28/24 History cephalexin 500 mg capsule 500 mg PO Q8H 03/08/24 03/14/24 Unknown History quetiapine 50 mg tablet 50 mg PO QHS 03/08/24 03/14/24 Unknown History Allergies Allergy/AdvReac Type Severity Reaction Status Date / Time morphine Allergy Intermediate Rash Verified 09/02/24 18:22 [place] Allergy Hives Verified 09/02/24 18:22 Review of Systems 2 Review of Systems: All systems reviewed & are unremarkable except as noted in HPI. All systems reviewed & are unremarkable except as noted in HPI and below PMFSH Past Medical History Medical History Anxiety Arthritis Unspecified examination Palpitations Other specified contraceptive management (02/24/17) Other chronic pain (02/24/17) Juvenile osteochondrosis of hip and pelvis Depression (02/24/17) Perthes disease lt hip Surgical History Surgical History H/O removal of cyst 02/29/24 Excision of 3.5 cm left chest wall cyst Dr. Bingham History of hip surgery History of hip replacement lt hip Family History Family History Father Family history of bipolar disorder Depression Grandparent Cancer Breast cancer Other Diabetes mellitus Social History Social History Smoking status: Former smoker Tobacco type: cigarettes Second hand tobacco smoke exposure: Yes Additional smoking assessment comments: Does not smoke Alcohol intake: current Drinks per week: 3 Substance use type: does not use Do You Feel Safe in your Home?: Yes Lack of Transportation: No Lack of Food: Never True Current Housing: I Have Housing Concerned About Future Housing: No Difficulty Paying Gas/Electric Bills: No Difficulty Paying for Meds: No Currently Unemployed: No Education: Associate Degree Difficulty w/ Childcare or Family Care: No Living arrangements: with family Gender identity (if verbalized by the patient): Female Spiritual care concerns: No Exam 2 Narrative: GENERAL: Anxious appearing, obese with BMI of 37.8, non-toxic, in no acute distress. HEAD: Normocephalic, atraumatic. RESPIRATORY: Airway patent, respirations nonlabored, mildly tachypneic. Clear to auscultation bilaterally, no rales, rhonchi, wheezing. CARDIOVASCULAR: Regular rate and rhythm without murmurs, rubs, or gallops. MUSCULOSKELETAL: Moves all extremities. No gross deformities. Some discomfort with flexion of R hip, but range of motion is intact and preserved. R hip surgical scar along anterior proximal thigh is well healing, scar is slightly pink/raised but w/o drainage or dehiscence. Mild induration to right proximal anterior thigh. No significant warmth or erythema. Mild focal tenderness. SKIN: Warm, dry, normal color. NEURO: A&O X3. Speech clear. Cranial nerves II-XII grossly intact. Steady gait. No ataxic movements. No focal deficits. PSYCHIATRIC: Anxious, tremulous. Normal interaction. Course Vital Signs Vital signs: Vital Signs Temperature 97.0 F L 09/02/24 17:31 Pulse Rate 96 09/02/24 17:31 Respiratory Rate 20 09/02/24 17:31 Blood Pressure 144/103 H 09/02/24 17:31 Pulse Oximetry 100 09/02/24 17:31 Temperature 97.0 F L 09/02/24 17:31 Pulse Rate 98 09/02/24 23:04 Respiratory Rate 16 09/02/24 23:04 Blood Pressure 113/71 09/02/24 23:04 Pulse Oximetry 99 09/02/24 23:04 MDM - Recheck/Abnormal Lab/Rx MDM Narrative Medical decision making narrative: Patient presented to ED with dizziness, lightheadedness, near-syncope, recent R hip replacement with concern for infection? Vital signs are stable upon arrival. Patient is neurologically intact. No focal deficits. She does appear very anxious. Orthostatic vital signs were evaluated and no significant drop in blood pressure, though blood pressure was fairly low into the 90 systolic laying supine. There was an increase in heart rate. Fluids were ordered. Exam of right hip does not appear concerning for infection. Range of motion is preserved. No significant warmth or erythema. Wound appears to be healing well. No drainage. I have very low suspicion for septic joint at this time. Patient had hip MRI performed outpatient yesterday: IMPRESSION: 1. Bilateral total hip arthroplasties, relatively recent on the right where a right hip joint effusion is contiguous with a 5 x 3.5 x 3 cm fluid collection extending into the deep aspect of the surgical wound. There is no appreciable fluctuance or abscess formation on exam. EKG with sinus rhythm, no concerning ST changes. White blood cell count 10.5. Normal differential. CMP unremarkable. Minimal transaminitis. Patient without right upper quadrant pain. Troponin is undetectable. CRP within normal range. ESR is marginally elevated at 26. Chest x-ray was clear. Venous Doppler ultrasound of right lower extremity was negative for DVT. D-dimer was over a given shortness breath, lightheadedness, recent surgery. Did result slightly elevated at 0.68. CT of chest was obtained and without acute PE or other cardiopulmonary abnormality. Overall workup reassuring. Patient has remained stable throughout ED stay. I have low suspicion for systemic infection at this time. Suspect dehydration and anxiety contributing to symptoms. Patient does admit to not eating or drinking today. Discussed case with Dr Phelps, orthopedics on-call @ [facility], advised low suspicion for fluid collection to be abscess formation given reassuring blood work and afebrile. Advised patient to contact orthopedic office on Thursday to make follow-up appointment. Discussed overall reassuring workup with patient, recommendations by Dr. Phelps. Patient reports she has an appointment with her hospitality specialist on Thursday. I advised her to keep this appointment, continue her home pain medications, stay well hydrated. Discussed very strict return precautions. She voiced understanding and is in agreement plan. Feels comfortable going home. Discharged in stable condition. Medical Records Attestation: I reviewed the patient's medical records. Lab Data Attestation: I reviewed the patient's lab results. 09/02/24 18:28 09/02/24 18:28 Labs: Lab Results 09/02/24 Range/Units 18:28 WBC 10.5 H (4.5-10.0) K/mm3 RBC 4.21 (4.2-5.4) M/mm3 Hgb 13.2 (12.0-15.0) g/dL Hct 40.4 (37.0-47.0) % MCV 96.0 (80-100) fl MCH 31.4 (26-34) pg MCHC 32.7 (32-36) g/dl RDW 12.8 (11.5-14.5) % Plt Count 489 H (150-375) k/mm3 MPV 9.0 (7.4-10.4) fl Immature Gran % (Auto) 0.3 (0-0.5) % Neut % (Auto) 63.5 (45.5-73.1) % Lymph % (Auto) 27.0 (18.3-44.2) % [place] % (Auto) 5.7 (2.6-8.5) % Eos % (Auto) 2.9 (0-4.4) % Baso % (Auto) 0.6 (0.2-1.2) % Lymph # (Auto) 2.85 (0.9-3.2) K/mm3 [place] # (Auto) 0.6 (0.1-0.6) K/mm3 Eos # (Auto) 0.3 (0-0.3) K/mm3 Baso # (Auto) 0.1 (0.0-0.1) K/mm3 Abs Immat Gran (auto) 0.03 (0.00-0.031) K/mm3 Absolute Neuts (auto) 6.7 (1.3-6.7) K/mm3 Absolute Nucleated RBC 0.000 (0.0-0.012) K/mm3 Nucleated RBC % 0.0 (0.0-0.2) % ESR 26 H (0-20) mm/hr PT 13.3 (11.1-14.7) Seconds INR 1.0 APTT 26.1 (22.3-36.8) Seconds D-Dimer 0.68 H (<0.48) ug/mL Sodium 142 (137-145) mmol/L Potassium 4.3 (3.4-5.0) mmol/L Chloride 106 (98-107) mmol/L Carbon Dioxide 23 (22-30) mmol/L Anion Gap 13 H (4-12) mmol/L BUN 8 (7-17) mg/dL Creatinine 0.79 (0.7-1.0) mg/dL Estim Creat Clear Calc 107 ml/min Estimated GFR > 60 (59 - ) Glucose 97 (65-110) mg/dL Calcium 9.5 (8.4-10.2) mg/dL Total Bilirubin 0.5 (0.2-1.3) mg/dL AST 54 H (14-36) U/L ALT 56 H (6-35) U/L Alkaline Phosphatase 125 (38-126) U/L Troponin I < 0.012 (0.000-0.034) ng/mL C-Reactive Protein 0.7 (<1.0) mg/dL Total Protein 8.0 (6.3-8.2) g/dL Albumin 4.8 (3.5-5.1) g/dL Imaging Data Attestation: I personally reviewed and interpreted this imaging study as follows: Radiologist's impression: ITS Impressions Chest X-Ray 09/02/24 19:10 IMPRESSION: No acute cardiopulmonary pathology. Venous Doppler Study 09/02/24 19:23 IMPRESSION: Negative right lower extremity venous US. No deep vein thrombosis. Head CT 09/02/24 19:40 IMPRESSION: No acute intracranial findings. Chest CTA 09/02/24 21:13 IMPRESSION: 1. No pulmonary embolism. 2. No acute cardiopulmonary pathology. ECG Data EKG #1: Attestation: I personally reviewed and interpreted this ECG as follows: ECG completion date: 09/02/24 ECG completion time: 18:31 EKG Interpretation: normal rate (82), sinus rhythm, no ST changes and other (baseline artifact) Discharge Plan Discharge Clinical Impression: Near syncope, Status post right hip replacement, Lightheadedness Patient Disposition: Home Condition: Stable Instructions: Antibiotic Form, Near Syncope (ED), Lightheadedness (ED) Additional Instructions: Your workup here was reassuring. Continue to follow-up with your orthopedic surgeon at your appointment next week. Continue your home pain medications. Recommend frequent icing, elevation of leg. Stay well hydrated at home. Return to an ED for worsening or severe pain, worsening redness or swelling of leg, fevers, chest pain, difficulty breathing, passing out, unable to keep down food or drink, or any other symptoms of concern. Patient Language: Romanian Prescriptions: No Action gabapentin 100 mg capsule 100 mg PO TID meclizine 50 mg tablet 50 mg PO BID PRN (Reason: dizziness) Qty: 14 0RF quetiapine 50 mg tablet 50 mg PO QHS cephalexin 500 mg capsule 500 mg PO Q8H clonidine HCl 0.1 mg tablet 0.1 mg PO TID Follow-up/Referrals: Rambo,MEG Lamas [Primary Care Provider] - Time of Disposition: 22:53
[2024-09-02 18:37] VITALS: BP 119/79; BP 123/81; BP 91/67; PULSE 75; PULSE 76; PULSE 85
[2024-09-02 18:38] LABS: Basophils Absolute Auto 0.1 K/mm3 (0.0-0.1); Basophils Percent Auto 0.6 % (0.2-1.2); Eosinophils Absolute Auto 0.3 K/mm3 (0-0.3); Eosinophils Percent Auto 2.9 % (0-4.4); Hematocrit 40.4 % (37.0-47.0); Hemoglobin 13.2 g/dL (12.0-15.0); Immature Granulocyte Absolute 0.03 K/mm3 (0.00-0.031); Immature Granulocyte Percent A 0.3 % (0-0.5); Lymphocytes Absolute Auto 2.85 K/mm3 (0.9-3.2); Mean Corpuscular HGB Conc 32.7 g/dl (32-36); Mean Corpuscular Hemoglobin 31.4 pg (26-34); Monocytes Absolute Auto 0.6 K/mm3 (0.1-0.6); Monocytes Percent Auto 5.7 % (2.6-8.5); Neutrophils Absolute Auto 6.7 K/mm3 (1.3-6.7); Neutrophils Percent Auto 63.5 % (45.5-73.1); Platelet Count Result 489 k/mm3 (150-375); Red Blood Count 4.21 M/mm3 (4.2-5.4); Red Cell Distribution Width 12.8 % (11.5-14.5); White Blood Count 10.5 K/mm3 (4.5-10.0)
[2024-09-02] MEDS: LORazepam INJ (*CRX) 2 MG/ML VIAL 0.5 MG IV PUSH (18:45)
[2024-09-02 18:55] LABS: Prothrombin Time 13.3 Seconds (11.1-14.7)
[2024-09-02 18:56] LABS: Partial Thromboplastin Time 26.1 Seconds (22.3-36.8)
[2024-09-02 19:02] LABS: Alanine Aminotransferase 56 U/L (6-35); Albumin Level 4.8 g/dL (3.5-5.1); Alkaline Phosphatase 125 U/L (38-126); Anion Gap 13 mmol/L (4-12); Aspartate Amino Transferase 54 U/L (14-36); Bilirubin,Total 0.5 mg/dL (0.2-1.3); Blood Urea Nitrogen 8 mg/dL (7-17); Calcium 9.5 mg/dL (8.4-10.2); Carbon Dioxide 23 mmol/L (22-30); Chloride 106 mmol/L (98-107); Estimated CRCL calculation 107 ml/min; Estimated Glomerular Filt Rate > 60; Glucose 97 mg/dL (65-110); Potassium 4.3 mmol/L (3.4-5.0); Sodium 142 mmol/L (137-145)
[2024-09-02 19:12] LABS: Erythrocyte Sedimentation Rate 26 mm/hr (0-20); Troponin I < 0.012 ng/mL (0.000-0.034)
[2024-09-02 19:28] LABS: D Dimer 0.68 ug/mL (<0.48)
[2024-09-02 19:44] LABS: CRP 0.7 mg/dL (<1.0)
[2024-09-02] MEDS: SODIUM CHLORIDE 0.9% IV 1,000 ML 999 ML IV CONT (20:51)
[2024-09-02] MEDS: KETOROLAC 30 MG/ML VIAL (*BKC) IV PUSH (22:17)
[2024-09-02] MEDS: MECLIZINE HCL 25 MG TABLET PO (22:18)
[2024-09-02 23:04] VITALS: BP 113/71; PULSE 98; RESP 16; O2SAT 99
== END 2024-09-02 23:04 | disposition home or self-care (01) ==
PROVIDERS: Emergency Provider Physician Assistant; PCP Registered Nurse
DX: R42 Dizziness and giddiness (principal); R55 Syncope and collapse; Z96.643 Presence of artificial hip joint, bilateral; M19.90 Unspecified osteoarthritis, unspecified site; F41.9 Anxiety disorder, unspecified; Z87.891 Personal history of nicotine dependence; Z79.899 Other long term (current) drug therapy
CPT/HCPCS: 36415; 70450; 71046; 71275; 80053; 84484; 85025; 85380; 85610; 85652; 85730; 86140; 93005; 93971; 96361; 96374; 96375; 99284; A9270; J1885; J2060; J7030; Q9967

== ENCOUNTER 2024-09-07 11:15 | Outpatient (CLI) | payer OTHER, SELFPAY ==
--- NOTE | ~2024-09-07 | US_ITS ---
EXAMINATION: US hip asp inj w image RT DATE: 09/07/2024 12:53 INDICATION: Right hip joint effusion post right hip replacement. TECHNIQUE: The procedure including the risks, benefits, and alternatives was discussed with the patie nt. Risks discussed included bleeding, infection and allergic reaction. The patient understood the ri sks and agreed to proceed. A timeout was performed to verify the patient's name, date of , an d procedure to be performed. The skin overlying the right hip joint was prepped and draped in usual sterile fashion. Anesthetic was administered with 1% lidocaine subcutaneously. An 18 gauge spinal n eedle was then advanced into the right hip joint effusion under continuous sonographic guidance. Flui d was aspirated and sent to the lab for Gram stain, culture and crystal analysis. The entry site was cleaned and dressed. There were no immediate complications. FINDINGS: Ultrasound images demonstrate a moderate-sized right hip joint effusion with needle advanced into th e effusion. IMPRESSION: 1. Successful ultrasound-guided right hip joint aspiration yielding 35 mL of relatively clear reddis [id number] fluid. Follow-up with results from Gram stain and cultures. Reviewed, dictated and finalized at location A. IMPRESSION: 1. Successful ultrasound-guided right hip joint aspiration yielding 35 mL of r elatively clear [id number]-[id number]-[id number] fluid. Follow-up with results from Gram stain and cultures.
--- OUTSIDE RECORDS SUMMARY | 2024-09-07 11:20 | XMS_ITS | Continuity of Care Document ---
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 [address], [place], [place], [id number]. tel:[phone] [facility], [address], [place], [address], [place] tel:[phone] [facility] [place] Status post right hip replacementUnil ateral primary osteoarthritis, right hip 5 Stephanie Perez. [address], [place], [address], [place]. tel:[phone] Referring Provider: Mauro Bonilla, [address] [place] [address], [address] . tel:[phone] [facility], [address], [place], [address], [place] tel:[phone] [facility] [place] Status post right hip replacementUnil ateral primary osteoarthritis, right hip 5 Abhinav Joshi. [address], [place], [place], [id number], [place]. tel:[phone] Referring Provider: Mauro Bonilla, [address] [place] [address], [id number] . tel:[phone] [facility], [address], [place], [address], [place] tel:[phone] [facility] [place] Status post right hip replacement Jul-2 5 [facility]. [address], [place], [address], [place]. tel:[phone] Referring Provider: Mauro Bonilla, [address] [place] [address], [address] . tel:[phone] [facility], [address], [place], [address], [place] tel:[phone] [facility] [place] Unilateral primary osteoarthritis, right hipStatus post right hip replacement Jul-04 10- 5 [facility]. [address], [place], [address], [place]. tel:[phone] Referring Provider: Mauro Bonilla, [address] [place] [address], [address] . tel:[phone] [facility], [address], [place], [address], [place] tel:[phone] [facility] Unilateral primary osteoarthritis, right hip Jun-3 5 Musa Ledesma . [address], [place], [place], [address]. tel:[phone] [facility], [address], [place], [address], [place] tel:[phone] [facility] Primary osteoarthritis of right hip Jun- 5 Musa Ledesma . [address], [place], [place], [id number]. tel:[phone] [facility], [address] [facility] [address], [place], [address], [place] tel:[phone] [facility] Primary osteoarthritis of right hipEncounter for other preprocedural examinationClas s 1 obesity with body mass index (BMI) of 34.0 to 34.9 in adult, unspecified obesity type, unspecified whether serious comorbidity presentBody mass index [BMI] 34.0-34.9, adult Jun- 5 Musa Ledesma . [address], [place], [place], [address]. tel:[phone] OFFICE/OUTPA TIENT VISIT NEW [facility], [address], [place], [address], [place] tel:[phone] [facility] [place] Right hip painPrimary osteoarthritis of right hip 5 Musa Ledesma . [address], [place], [place], [id number]. tel:[phone] Referring Provider: Mauro Bonilla, [address] [place] [address], [address] . tel:[phone] Family History Family Member Type Diagnosis Age At Onset No Information Payers Payer name Insurance type Covered green party ID Giselletheodore pugh(s) Yamile[employer] Access [employer] [place] [id number] Social History Type Description Quantity Date Captured [...] Treatment Date Type Action Status Referral Ordered: DRAIN/INJ JOINT/BURSA W/US RT hip ordered Referral Ordered: FLUOROSCOPIC GUIDANCE NEEDLE PLACEMENT RT hip Appointment date/timeframe: 09/07/2024 ordered Referral Ordered: MRI JT Lower w/o Contrast [...] RT hip ordered Appointment Felicia Lobo Scheduled Future Order: Lab Order CBC With Differential/Platelet ([id number]), Sent on: Sent Future Order: Lab Order Sediment ation Rate-Westergren ([id number]), Sent on: Sent Future Order: Lab Order C-Reacti ve Protein, Quant ([id number]), Sent on: Sent History Of Present Illness Encounter Date Complaint History Of Prese nt Illness No Information Functional Status Date Functional Assessmen t No Information Instructions Date Instruction Additional Infor mation No Information Assessments Type Assessment Date assessment Status post right hip replacemen t assessment Right hip pain Patient Care Teams Name Effective Dates (start - stop) Status Members No Information
--- OUTSIDE RECORDS SUMMARY | 2024-09-07 11:20 | XMS_ITS | Clinical Summary ---
Author Organization [facility] Address [address] [place] [address] Care Team Providers Care Accounts Executive Name Role Phone JenniferAdams shea Shar MANUEL-BRIEF WRITER Primary Care Provide r Source Comments [facility],non-owned Affiliates and Associated Physician Practices is amultiple site organization consisting of ambulatory clinics and hospital sitesin [place], [place]. This disclosure is being madepursuant to the Care Everywhere program and may not contain all information available regarding this patient. Last updated 17.[facility] Allergies Active Allergy Reactions Criticality Noted Date [...] Active vitamin D, ergocalciferol, (Drisdol) 1.25 MG (64066 UT) capsule Take 1 (one) capsule by [...] Description 07/08/2024 11:47 AM CDT Anesthesia Event [facility] Op [address] [id number] Nicole Roland MD Reddy, Jorge Burns MD 07/08/2024 10:46 AM CDT - 07/08/2024 1:28 PM CDT Surgery [facility] - [facility] Op [address] [address] Baltazar Vigil, ROBOTIC ASSISTED ARTHROPLASTY TOTAL HIP (ANTERIOR) 07/08/2024 8:14 AM CDT - 07/11/2024 3:42 PM CDT Hospital Encounter [facility] 2N ORTHOPEDICS [address] [address] Baltazar Vigil, Surgery Orthopedics Discharge Disposition: Home or Self Care 07/08/2024 Travel 07/04/2024 7:30 AM CDT - 07/04/2024 11:59 PM CDT Hospital Encounter [facility] PREADMISSION TESTING [address] [address] Baltazar Vigil, Orthopedics Discharge Disposition: Home or [...] on file Legal Sex 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 Gender Identity Not on file Sexual Orientation [...] this topic Medical Devices Implanted Type Area Cigar Packing Examiner Device Identifier Shelf Expiration Date Model / Serial / Lot Shell Actb 48mm Hip 3 Screw Hl Clstr Implanted:Qty: 1 on 07/08/2024 by Baltazar Vigil DO at [facility] Right: Hip [employer] 03/10/2029 702-04-48D / / [id number] Impl Hip Stm 99mm Nk 36mm Insg 2 Hi Stm Implanted:Qty: 1 on 07/08/2024 by Baltazar Vigil DO at [facility] Right: Hip [employer] 10/11/2028 [id number] / / [id number] Liner Actb Mdm D 38mm Cocr Hip 22.2mm Implanted:Qty: 1 on 07/08/2024 by Baltazar Vigil DO at [facility] Right: Hip [employer] 05/23/2029 626-00-38D / / [id number] Head Fem +0mm Ofst Tpr 28mm Hip Blx D Implanted:Qty: 1 on 07/08/2024 by Baltazar Vigil DO at [facility] Right: Hip [employer] 12/16/2028 6570-0-128 / / [id number] Mdm X3 Insert For Mdm Liner, 38d Implanted:Qty: 1 on 07/08/2024 by Baltazar Vigil DO at [facility] Right: Hip [employer] 02/06/2029 7236-2-844 / / [id number] Procedures [...] PM CDT Primary osteoarthritis of right hip MD TOTAL HIP REPLACEMENT 07/08/2024 11:41 AM CDT Special Needs 120 MIN, AMY DAS CONFIRMED [phone] LR 06/29 PERIPHERAL BLOCK Routine 07/08/2024 10:04 [...] - 10.7 x10E9/L 07/11/2024 8:27 AM CDT [facility] RBC Count 3.99 3.90 - 5.20 x10E12/L 07/11/2024 8:27 AM CDT [facility] Hemoglobin 12.8 11.9 - 15.8 g/dL 07/11/2024 8:27 AM CDT [facility] Hematocrit 39.9 34.8 - 46.1 % 07/11/2024 8:27 AM CDT [facility] MCV 100.0(H) 80.0 - 98.0 fL 07/11/2024 8:27 AM CDT [facility] MCH 32.1 26.7 - 33.6 pg 07/11/2024 8:27 AM CDT [facility] MCHC 32.1 31.7 - 36.3 g/dL 07/11/2024 8:27 AM CDT [facility] RDW-CV 13.6 11.3 - 14.8 % 07/11/2024 8:27 AM CDT [facility] Platelet Count 415 150 - 420 x10E9/L 07/11/2024 8:27 AM CDT [facility] MPV 9.7 7.8 - 11.4 fL 07/11/2024 8:27 AM [facility] Blood BLOOD SPECIMEN / Unknown Lab Venipuncture / Unknown 07/11/2024 8:13 AM CDT 07/11/2024 8:25 AM CDT us Chanda Gautam MD LAB - HEMATOLOGY ORDERABLES F inal Result [facility] [address] [place] [address] * (ABNORMAL) BASIC METABOLIC PANEL (CALCIUM TOTAL) (07/11/2024 8:00 AM CDT) Only the most recent of2 resultswithin the time period is included. Pathologist [facility] Glucose 81 70 - 99 mg/dL 07/11/2024 9:17 AM CDT [facility] Sodium 140 136 - 145 mmol/L 07/11/2024 9:17 AM CDT [facility] Potassium 3.8 3.5 - 5.1 mmol/L 07/11/2024 9:17 AM CDT [facility] Chloride 109(H) 98 - 107 mmol/L 07/11/2024 9:17 AM CDT [facility] CO2 22 22 - 29 mmol/L 07/11/2024 9:17 AM CDT [facility] Calcium 9.7 8.4 - 10.4 mg/dL 07/11/2024 9:17 AM CDT [facility] Anion Gap 9 6 - 16 mmol/L 07/11/2024 9:17 AM CDT [facility] BUN 6 5.3 - 18.7 mg/dL 07/11/2024 9:17 AM CDT [facility] Creatinine 0.70 0.57 - 1.11 mg/dL 07/11/2024 9:17 AM CDT [facility] eGFR by CKD-EPI >90 >=90 mL/min/1.7 3 m2 07/11/2024 9:17 AM CDT [facility] Blood BLOOD SPECIMEN / Unknown Lab Venipuncture / Unknown 07/11/2024 8:00 AM CDT 07/11/2024 8:25 AM CDT Chanda Gautam MD LAB - CHEMISTRY ORDERABLES Fi nal Result [facility] [address] [place] [address] * HEMOGLOBIN A1C (07/10/2024 4:26 AM CDT) Hemoglobin A1c 5.3 <5.7 % 07/10/2024 5:17 AM CDT [facility] Estimated Average Glucose 105 mg/dL 07/10/2024 5:17 AM CDT [facility] Blood BLOOD SPECIMEN / Unknown Lab Venipuncture / Unknown 07/10/2024 4:26 AM CDT 07/10/2024 5:01 AM CDT Narrative [facility] - 07/10/2024 5:17 AM CDT [...] MD LAB - CHEMISTRY ORDERABLES nal Result [facility] [address] [place] [address] * (ABNORMAL) COMPREHENSIVE METABOLIC PANEL (07/10/2024 4:26 AM CDT) Pathologist [facility] Glucose 120(H) 70 - 99 mg/dL 07/10/2024 5:21 AM CDT [facility] Sodium 142 136 - 145 mmol/L 07/10/2024 5:21 AM CDT [facility] Potassium 4.3 3.5 - 5.1 mmol/L 07/10/2024 5:21 AM CDT [facility] Chloride 113(H) 98 - 107 mmol/L 07/10/2024 5:21 AM CDT [facility] CO2 22 22 - 29 mmol/L 07/10/2024 5:21 AM CDT [facility] Calcium 8.3(L) 8.4 - 10.4 mg/dL 07/10/2024 5:21 AM CDT [facility] Anion Gap 7 6 - 16 mmol/L 07/10/2024 5:21 AM CDT [facility] BUN 7 5.3 - 18.7 mg/dL 07/10/2024 5:21 AM CDT [facility] Creatinine 0.63 0.57 - 1.11 mg/dL 07/10/2024 5:21 AM T [facility] Alkaline Phosphatase 74 40 - 150 U/L 07/10/2024 5:21 AM T [facility] ALT 30 6 - 57 U/L 07/10/2024 5:21 AM T [facility] AST 22 10 - 48 U/L 07/10/2024 5:21 AM T [facility] Protein Total 6.1(L) 6.4 - 8.3 gm/dL 07/10/2024 5:21 AM T [facility] Albumin 3.2(L) 3.4 - 5.0 gm/dL 07/10/2024 5:21 AM [facility] Bilirubin Total 0.1(L) 0.2 - 1.2 mg/dL 07/10/2024 5:21 AM [facility] eGFR by CKD-EPI >90 >=90 mL/min/1.7 3 m2 07/10/2024 5:21 AM T [facility] Blood BLOOD SPECIMEN / Unknown Lab Venipuncture / Unknown 07/10/2024 4:26 AM CDT 07/10/2024 5:01 AM CDT Chanda Gautam MD LAB - CHEMISTRY ORDERABLES Fi nal Result [facility] [address] [place] [address] * MAGNESIUM BLOOD (07/10/2024 4:26 AM CDT) Pathologist [facility] Magnesium 2.0 1.6 - 2.6 mg/dL 07/10/2024 5:21 AM T [facility] Blood BLOOD SPECIMEN / Unknown Lab Venipuncture / Unknown 07/10/2024 4:26 AM CDT 07/10/2024 5:01 AM CDT Chanda Gautam MD LAB - CHEMISTRY ORDERABLES Fi nal Result [facility] [address] [address] * XR Pelvis W Right Hip 2Vw [...] - 99 mg/dL 07/13/2024 12:12 PM CDT [facility] Specimen Type Cap Fingerstick 2024 12:12 PM CDT [facility] Blood BLOOD SPECIMEN / Unknown 07/09/2024 2:27 PM CDT 07/13/2024 12:12 PM CDT Baltazar Vigil DO LAB - POINT OF CARE ORDE RABLES Final Result [facility] [address] [address] * (ABNORMAL) HGB HCT PANEL (07/09/2024 4:28 AM CDT) Hemoglobin 10.8(L) 11.9 - 15.8 g/dL 07/09/2024 5:38 AM CDT [facility] Hematocrit 32.8(L) 34.8 - 46.1 % 07/09/2024 5:38 AM CDT [facility] Blood BLOOD SPECIMEN / Unknown Lab Venipuncture / Unknown 07/09/2024 4:28 AM CDT 07/09/2024 5:32 AM CDT us Baltazar Vigil DO LAB - HEMATOLOGY ORDERAB LES Final Result [facility] [address] [address] * XR PELVIS 1 OR 2VW (IN PACU) (07/08/2024 4:19 PM CDT) Anatomical Region Laterality Modality Pelvis Radiographic Mary ging 07/08/2024 4:20 PM CDT Narrative 07/08/2024 4:21 PM CDT PROCEDURE(s): XR PELVIS 1 OR 2VW; DATE AND TIME OF EXAM(s): 07/08/2024 4:19 PM; LOCATION: [facility] INDICATION(s): M16.11: Unilateral primary osteoarthritis, [...] AND TIME OF EXAM(s): 54:19 PM; LOCATION: [facility] INDICATION(s): M16.11: Unilateral primary osteoarthritis, [...] Urine Negative Negative 07/08/2024 8:48 AM CDT [facility] Urine URINE / Unknown 07/08/2024 8 :42 AM CDT 07/08/2024 8:48 AM CDT Baltazar Vigil DO LAB - POINT OF CARE ORDE RABLES Final Result Performing Organization Address City/[facility]/ZIP Co de Phone Number [facility] [address] [address] * HCG URINE QUAL POCT NOTIFICATION (07/08/2024 8:40 AM CDT) Comment Notification Label Only - See Separate Report 07/08/2024 10:00 AM CDT [facility] Urine URINE / Unknown 07/08/2024 8 :40 AM CDT 07/08/2024 8:41 AM CDT Nicole Roland MD LAB - URINALYSIS ORDER DILLON Final Result Performing Organization Address City/[facility]/ZIP Co de Phone Number [facility] [address] [place] [address] from Last 3 Months Insurance SELF PAY NO INSURANCE Member Subscriber Plan / Payer (Ef fective for All Dates) Name:Felicia Morel Member ID:Not on file Relation to Subscriber:Self Name:FELICIA MOREL Subscriber ID:Not on file Payer ID:Not on file Group ID:Not on file Type:Self Pay Address: [facility] [place] [place] Address: [facility] [id number] [phone] Advance Directives * Full Code (Latest Code Status on File) Date Activated Date Inactivated Comments 07/08/2024 3:47 PM 07/11/2024 4:43 PM Care Teams Accounts Executive Relationship Specialty Start Date End Date Adams Ricks, MAR-BRIEF WRITER [address] [place] [phone] PCP - General Internal Medicine 07/04/24
[2024-09-07 12:41] LABS: Basophils Percent Auto 0.4 % (0.2-1.2); Eosinophils Absolute Auto 0.2 K/mm3 (0-0.3); Eosinophils Percent Auto 2.7 % (0-4.4); Hemoglobin 12.6 g/dL (12.0-15.0); Immature Granulocyte Absolute 0.03 K/mm3 (0.00-0.031); Immature Granulocyte Percent A 0.3 % (0-0.5); Lymphocytes Absolute Auto 2.15 K/mm3 (0.9-3.2); Mean Corpuscular HGB Conc 33.2 g/dl (32-36); Mean Corpuscular Hemoglobin 31.3 pg (26-34); Mean Corpuscular Volume 94.5 fl (80-100); Monocytes Absolute Auto 0.6 K/mm3 (0.1-0.6); Monocytes Percent Auto 6.2 % (2.6-8.5); Neutrophils Percent Auto 66.4 % (45.5-73.1); Platelet Count Result 452 k/mm3 (150-375); Red Blood Count 4.02 M/mm3 (4.2-5.4); Red Cell Distribution Width 12.8 % (11.5-14.5)
[2024-09-07 12:43] LABS: CRP 1.9 mg/dL (<1.0)
[2024-09-07 13:34] LABS: Erythrocyte Sedimentation Rate 34 mm/hr (0-20)
[2024-09-07 13:47] LABS: Crystals Synovial Fluid None Seen (None Seen)
== END 2024-09-07 11:16 | disposition home or self-care (01) ==
LOC: ANHIMG 11:17
PROVIDERS: Radiology Diagnostic Radiology; PCP Registered Nurse
DX: M25.451 Effusion, right hip (principal); Z96.641 Presence of right artificial hip joint
CPT/HCPCS: 20611; 36415; 85025; 85652; 86140; 87070; 87075; 87205; 89060

== ENCOUNTER 2024-10-25 15:04 | Outpatient (CLI) | payer OTHER, SELFPAY ==
--- OUTSIDE RECORDS SUMMARY | 2024-10-25 15:09 | XMS_ITS | Clinical Summary ---
Author Organization [facility] Address [address] [place] [address] Care Team Providers Care Medical Sales Representative Name Role Phone Ashish Young NP Primary Care Provi shaheen Allergies Active Allergy Reactions Criticality Noted Date Comments Morphine Hives,Rash,Unknown Medium 09/18/2012 Medications atorvastatin (LIPITOR) 20 MG tablet Take 1 tablet (20 mg total) by mouth daily. 4 Active WELLBUTRIN XL 150 MG 24 hr tablet Take 1 tablet (150 mg total) by mouth every morning. 5 Active QUEtiapine (SEROQUEL) 50 MG tablet Take 2 tablets (100 mg total) by mouth nightly at bedtime. 5 Active VIIBRYD 20 MG tablet Take 2 tablets (40 mg total) by mouth daily. 4 Active hydrOXYzine (ATARAX) 25 MG tablet Take 1 tablet (25 mg total) by mouth 3 (three) times daily as needed for Itching. Active metFORMIN (GLUCOPHAGE) 850 MG tablet Take 1 tablet (850 mg total) by mouth daily with breakfast. Active celecoxib (CELEBREX) 200 MG capsule Take 1 capsule (200 mg total) by mouth 2 (two) times daily. Active busPIRone (BUSPAR) 10 MG tablet Take 1 tablet (10 mg total) by mouth 3 (three) times daily. Active gabapentin (NEURONTIN) 600 MG tablet Take 1 tablet (600 mg total) by mouth 3 (three) times daily. Active HYDROcodone-ac etaminophen (NORCO) 5-325 MG tablet Take 1 tablet by mouth every 6 (six) hours as needed for Pain. 025 Discontinued orphenadrine ER (NORFLEX) 100 MG TABLET SR 12 HR 12 hr tablet Take 1 tablet (100 mg total) by mouth 2 (two) times daily. 28 tablet 025 Discontinued SUMAtriptan (IMITREX) 25 MG tablet Take 1 tablet (25 mg total) by mouth as needed for Migraine (May repeat once in 2 hours if needed). Max of 8 tablets (200 mg) in 24 hours. 12 tablet 025 Discontinued Active Problems Problem Noted Date Diagnosed Date S/P hip arthroscopy 11/18/2023 History of total hip arthroplasty, left 06/27/19 Encounters Date Type Department Care Team Description 10/22/2024 10:46 PM CDT - 10/23/2024 6:45 AM CDT Emergency [facility] [address] [place] [address] [place] [address] Mino Oneal MD Suicidal Ideation Discharge Disposition: Home or Self Care (Routine Discharge) 10/22/2024 Travel 10/12/2024 9:25 AM CDT - 10/12/2024 10:55 AM CDT Emergency [facility] [address] [place], [place] [address] [address] Adi Kirby MD Dizziness; Headache Discharge Disposition: Home or Self Care (Routine Discharge) 10/12/2024 Travel 08/30/2024 12:56 PM CDT - 08/30/2024 2:57 PM CDT Emergency [facility] [address] [place], [place] [address] [address] Efra Servin DO Hip Pain (And back pain ) Discharge Disposition: Home or Self Care (Routine Discharge) 08/30/2024 Travel 07/27/2024 11:26 AM CDT - 07/27/2024 11:59 PM CDT Hospital Encounter [place] [address] [place] [address] Ashish Young NP Discharge Disposition: Home or Self Care (Routine Discharge) 07/27/2024 Travel from Last 3 Months Family History [...] Sex Assigned at Female 04/26/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 Sex Female 7:07 PM CDT Gender Identity Not on file Sexual Orientation Not on file Last Filed Vital Signs Vital Sign Reading Time Taken Comments Blood Pressure 112/80 10/23/2024 6:11 AM CDT Pulse 84 10/23/2024 6:11 AM CDT Temperature 36.4 C (97.6 F) 10/22/2024 10:45 PM CDT Respiratory Rate 16 10/23/2024 6:11 AM CDT Oxygen Saturation 98% 10/23/2024 6:11 AM CDT Inhaled Oxygen Concentration - - Weight 102.1 kg (225 lb) 10/22/2024 10:45 PM CDT Height 167.6 cm (5' 6) 10/22/2024 10:45 PM CDT Body Mass Index 36.32 10/22/2024 10:45 PM CDT Plan of Treatment Health Maintenance Due [...] on patient's age to complete this topic Procedures Procedure Name Priority Date/Time Associated Diagnosis Comments ETHANOL STAT 10/23/2024 1:50 AM CDT HC HCG QN STAT 10/22/2024 11:15 PM CDT CBC W/DIFF AUTOMATED STAT 10/22/2024 11:15 PM CDT COMPREHENSIVE METABOLIC PANEL STAT 10/22/2024 11:15 PM CDT ETHANOL STAT 10/22/2024 11:15 PM CDT ACETAMINOPHEN STAT 10/22/2024 11:15 PM CDT SALICYLATE STAT 10/22/2024 11:15 PM CDT MAGNESIUM STAT 10/22/2024 11:15 PM CDT TSH W/REFLEX STAT 10/22/2024 11:15 PM CDT ECG 12-LEAD STAT 10/22/2024 11:08 PM CDT CORONAVIRUS (COVID-19) ANTIGEN STAT 10/22/2024 10:54 PM CDT HC URINALYSIS AUTO W/MICRO STAT 10/22/2024 10:54 PM CDT DRUG SCREEN RAPID STAT 10/22/2024 10: 54 PM CDT XR HIP RT 2V STAT 08/30/2024 2:[address] LUMB SPINE WO CON STAT 08/30/2024 1:50 PM CDT USV OTTONIEL DUPLEX LOW EXT CHRISTOPHER STAT 07/27/2024 12:19 PM CDT Localized swelling of left lower leg CTA CHEST PE PROTOCOL STAT 07/27/2024 11:50 AM CDT Chest pain from Last 3 Months Results * (ABNORMAL) ETHANOL (10/23/2024 1:50 AM CDT) Only the most recent of2 resultswithin the time period is included. ALCOHOL S/P/B 0.048(H) <0.003 G/DL 10/23/2024 2:14 AM CDT [facility] 10/23/2024 1:50 AM CDT us Mino Oneal MD LABORATORY Final Res ult Performing Organization Address [facility]/[place] Co de Phone Number [facility] [address] [place] [id number], * TSH W/REFLEX (10/22/2024 11:15 PM CDT) TSH 3.441 0.358 - 3.740 uIU/ML 10/23/2024 12:04 AM CDT [facility] Comment: FREE T4 NOT INDICATED ASSAY PERFORMED BY CHEMILUMINESCENT IMMUNOASSAY METHODOLOGY USING SIEMENS DIMENSION REAGENT. PATIENT RESULTS DETERMINED BY ASSAYS FROM DIFFERENT MANUFACTURERS AND/OR BY DIFFERENT METHODS MAY NOT BE COMPARABLE. 10/22/2024 11:1 5 PM CDT us Mino Oneal MD LABORATORY Final Res ult Performing Organization Address City/[facility]/ZIP Co de Phone Number [facility] [address] [place] [address], [place] [phone] * (ABNORMAL) COMPREHENSIVE METABOLIC PANEL (10/22/2024 11:15 PM CDT) SODIUM S/P/B 140 136 - 145 MMOL/L 10/23/2024 12:04 AM CDT [facility] POTASSIUM S/P/B 4.0 3.5 - 5.1 MMOL/L 10/23/2024 12:04 AM [facility] CHLORIDE S/P/B 103 98 - 107 MMOL/L 10/23/2024 12:04 AM [facility] CO2 20.9(L) 21.0 - 32.0 MMOL/L 10/23/2024 12:04 AM [facility] GLUCOSE 123(H) 70 - 99 MG/DL 10/23/2024 12:04 AM [facility] Comment: FASTING GLUCOSE 100 TO 125 MG/DL IS CONSISTENT WITH IMPAIRED FASTING GLUCOSE. FASTING GLUCOSE >125 MG/DL IS CONSISTENT WITH DIABETES. RANDOM GLUCOSE >200 MG/DL WITH HYPERGLYCEMIC SYMPTOMS IS CONSISTENT WITH DIABETES. PER ADA GUIDELINES BUN 14 6 - 24 MG/DL 10/23/2024 12:04 AM [facility] CREATININE S/P/B 0.99 0.55 - 1.02 MG/DL 10/23/2024 12:04 AM [facility] CALCIUM S/P/B 9.5 8.4 - 10.5 MG/DL 10/23/2024 12:04 AM [facility] BILIRUBIN TOTAL S/P/B 0.2 0.2 - 1.0 MG/DL 10/23/2024 12:04 AM [facility] Comment: THIS ASSAY IS NOT RECOMMENDED FOR PATIENTS UNDERGOING TREATMENT WITH ELTROMBOPAG DUE TO THE POTENTIAL FOR FALSELY ELEVATED RESULTS. ALKALINE PHOSPHATASE S/P/B 121(H) 37 - 98 U/L 10/23/2024 12:04 AM [facility] AST 15 15 - 37 U/L 10/23/2024 12:04 AM [facility] ALT 40 14 - 59 U/L 10/23/2024 12:04 AM [facility] TOTAL PROTEIN S/P/B 8.0 6.4 - 8.2 G/DL 10/23/2024 12:04 AM [facility] ALBUMIN S/P/B 3.9 3.4 - 5.0 G/DL 10/23/2024 12:04 AM CDT [facility] ANION GAP 16.1(H) 5.0 - 15.0 MMOL/L 10/23/2024 12:04 AM CDT [facility] OSMOLALITY (CALC) 292 MOSM/KG 025 12:04 AM CDT [facility] Comment:REFERENCE RANGE NOT ESTABLISHED GFR ESTIMATE 78(L) >89 ML/MIN/1. 73 M2 10/23/2024 12:04 AM CDT [facility] GFR NOTES GFR REFERENCE S: 10/23/2024 12:04 AM CDT [facility] Comment: THE ESTIMATED GFR IS CALCULATED USING THE 2020 CKD-EPI EQUATION. THE FOLLOWING CATEGORIES FOR GRADING RENAL FUNCTION ARE RECOMMENDED BY THE INTERNATIONAL SOCIETY OF NEPHROLOGY (KDIGO 2012 CLINICAL PRACTICE GUIDELINE). G1,NORMAL OR HIGH: >89 ml/min/1.73 m2 G2,MILDLY DECREASED: 60-89 ml/min/1.73 m2 G3A,MILDLY TO MODERATELY DECREASED: 45-59 ml/min/1.73 m2 G3B,MODERATELY TO SEVERELY DECREASED: 30-44 ml/min/1.73 m2 G4,SEVERELY DECREASED: 15-29 ml/min/1.73 m2 G5,KIDNEY FAILURE: <15 ml/min/1.73 m2 10/22/2024 11:1 5 PM CDT us Mino Oneal MD LABORATORY Final Res ult Performing Organization Address City/State/[place] Co de Phone Number [facility] [address] [place] [address], * HCG QUANT (SERUM)-CHORIONIC GONADOTROPIN (10/22/2024 11:15 PM CDT) HCG QUANTITATIVE <1 0.0 - 6.0 MIU/ML 10/23/2024 12:04 AM CDT [facility] Comment:NON- FEMALE 0-6 10/22/2024 11:1 5 PM CDT us Mino Oneal MD LABORATORY Final Res ult [facility] [address] [place] [address], * (ABNORMAL) CBC W/DIFF AUTOMATED (10/22/2024 11:15 PM CDT) WBC 10.02 4.00 - 10.80 x10'3/uL 10/22/2024 11:33 PM CDT [facility] RBC 4.40 4.10 - 5.40 x10'6/uL 10/22/2024 11:33 PM CDT [facility] HGB 13.8 12.0 - 16.0 G/DL 10/22/2024 11:33 PM CDT [facility] HCT 40.3 36.0 - 47.0 % 10/22/2024 11:33 PM CDT [facility] MCV 91.6 78.0 - 100.0 FL 10/22/2024 11:33 PM CDT [facility] MCH 31.4(H) 27.0 - 31.0 PG 10/22/2024 11:33 PM CDT [facility] MCHC 34.2 33.0 - 36.0 G/DL 10/22/2024 11:33 PM CDT [facility] RDW 12.6 11.5 - 14.5 % 10/22/2024 11:33 PM CDT [facility] PLT 529(H) 150 - 350 x10'3/uL 10/22/2024 11:33 PM CDT [facility] MPV 9.6 7.4 - 10.4 FL 10/22/2024 11:33 PM CDT [facility] CBC COMMENT NORMAL REFERENCE RANGE NOT ESTABLISHED FOR THE PROPORTIONAL LEUKOCYTE DIFFERENTIAL. 10/22/2024 11:33 PM CDT [facility] NEUTROPHILS % 59.0 % 10/22/2024 11:33 PM CDT [facility] LYMPHOCYTES % 32.5 % 10/22/2024 11:33 PM CDT [facility] MONOCYTES % 6.0 % 10/22/2024 11:33 PM CDT [facility] EOSINOPHILS % 1.5 % 10/22/2024 11:33 PM CDT [facility] BASOPHILS % 0.4 % 10/22/2024 11:33 PM CDT [facility] IMMATURE GRANS % 0.6 % 10/23/19 11:33 PM CDT [facility] NRBC % 0.0 % 10/22/2024 11:33 PM CDT [facility] ABS. NEUTROPHILS 5.91 1.60 - 8.30 x10'3/uL 10/22/2024 11:33 PM CDT [facility] ABS. LYMPHOCYTES 3.26 0.80 - 4.70 x10'3/uL 10/22/2024 11:33 PM CDT [facility] ABS. MONOCYTES 0.60 0.00 - 1.50 x10'3/uL 10/22/2024 11:33 PM CDT [facility] ABS. EOSINOPHILS 0.15 0.00 - 0.40 x10'3/uL 10/22/2024 11:33 PM CDT [facility] ABS. BASOPHILS 0.04 0.00 - 0.20 x10'3/uL 10/22/2024 11:33 PM CDT [facility] ABS. IMMATURE GRANULOCYTES 0.06(H) 0.00 - 0.03 x10'3/uL 10/22/2024 11:33 PM CDT [facility] ABS. NUCLEATED RBC'S 0.00 0.00 - 0.01 x10'3/uL 10/22/2024 11:33 PM CDT [facility] 10/22/2024 11:1 5 PM CDT us Mino Oneal MD LABORATORY Final Res ult [facility] [address] [place] [address], * MAGNESIUM (10/22/2024 11:15 PM CDT) MAGNESIUM 2.0 1.8 - 2.4 MG/DL 10/23/2024 12:04 AM CDT [facility] 10/22/2024 11:1 5 PM CDT us Mino Oneal MD LABORATORY Final Res ult Performing Organization Address City/[facility]/ZIP Co de Phone Number [facility] [address] [place] [address], * (ABNORMAL) SALICYLATE (10/22/2024 11:15 PM CDT) SALICYLATES 1.5(L) 2.8 - 20.0 MG/DL 10/23/2024 12:04 AM CDT [facility] 10/22/2024 11:1 5 PM CDT us Mino Oneal MD LABORATORY Final Res ult Performing Organization Address [facility]/[place] Co de Phone Number [facility] [address] [place] [address], * (ABNORMAL) ACETAMINOPHEN (10/22/2024 11:15 PM CDT) ACETAMINOPHEN S/P/B 0.0(L) 10.0 - 30.0 MCG/ML 10/23/2024 12:04 AM CDT [facility] 10/22/2024 11:1 5 PM CDT us Mino Oneal MD LABORATORY Final Res ult Performing Organization Address City/[facility]/ZIP Co de Phone Number [facility] [address] [place] [address], * ECG 12 lead (10/22/2024 11:08 PM CDT) 10/22/2024 11:0 8 PM CDT Narrative [facility] - 10/23/2024 8:27 AM CDT [address] 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1995 Requested By: MINO ONEAL Order Number: [id number] Reading MD: Bhargav Paul Measurements Intervals [place] Rate: 109 P: 40 ME: 150 QRS: 15 QRSD: 89 T: 19 QT: 322 QTc: 434 Interpretive Statements SINUS TACHYCARDIA POSSIBLE LEFT ATRIAL ENLARGEMENT LOW QRS VOLTAGE IN PRECORDIAL LEADS POSSIBLE RIGHT VENTRICULAR CONDUCTION DELAY ABNORMAL RHYTHM ECG us Mino Oneal MD ECG ORDERABLES Final Res ult [facility] * CORONAVIRUS (COVID-19) ANTIGEN (10/22/2024 10:54 PM CDT) CORONAVIRUS ANTIGEN [place] NEGATIVE NEGATIVE 10/22/2024 11:33 PM CDT [facility] Comment: NEGATIVE RESULTS DO NOT RULE OUT SARS-COV-2 INFECTION AND SHOULD NOT BE USED THE SOLE BASIS FOR TREATMENT OR PATIENT MANAGEMENT DECISIONS, INCLUDING INFECTION CONTROL DECISIONS. NEGATIVE RESULTS SHOULD BE CONSIDERED IN THE CONTEXT OF A PATIENT'S RECENT EXPOSURES, HISTORY AND THE PRESENCE OF CLINICAL SIGNS AND SYMPTOMS CONSISTENT WITH COVID 19. THIS TEST HAS BEEN AUTHORIZED BY THE FDA UNDER AN EMERGENCY USE AUTHORIZATION (EUA) FOR USE BY AUTHORIZED LABORATORIES. SPECIMEN TYPE NASAL 10/22/2024 11:04 PM CDT [facility] NASAL NASAL STRUCTURE / Unknown 10/22/2024 10:54 PM CDT us Mino Oneal MD MICROBIOLOGY - GENERAL OR DERABLES Final Result [facility] [place] [address], * (ABNORMAL) DRUG SCREEN RAPID (10/22/2024 10:54 PM CDT) CANNABINOIDS SCREEN (U) NEGATIVE NEGATIVE 10/22/2024 11:26 PM CDT [facility] PHENCYCLIDINE PCP (U) NEGATIVE NEGATIVE 10/22/2024 11:26 PM CDT [facility] COCAINE METABOLITES (U) NEGATIVE NEGATIVE 10/22/2024 11:26 PM CDT [facility] METHAMPHETAMINE SCREEN (U) POSITIVE(A) NEGATIVE 10/22/2024 11:26 PM CDT [facility] OPIATE SCREEN (U) NEGATIVE NEGATIVE 025 11:26 PM CDT [facility] AMPHETAMINE SCREEN (U) NEGATIVE NEGATIVE 10/22/2024 11:26 PM CDT [facility] BENZODIAZEPINES SCREEN (U) NEGATIVE NEGATIVE 10/22/2024 11:26 PM CDT [facility] TRICYCLIC ANTIDEPRESSANT SCREEN (U) NEGATIVE NEGATIVE 10/22/2024 11:26 PM CDT [facility] METHADONE (U) NEGATIVE NEGATIVE 10/22/2024 11:26 PM CDT [facility] BARBITURATES SCREEN (U) NEGATIVE NEGATIVE 10/22/2024 11:26 PM CDT [facility] OXYCODONE SCREEN (U) NEGATIVE NEGATIVE 10/22/2024 11:26 PM CDT [facility] URINE TOX COMMENT THIS TEST METHODOLOGY IS DESIGNED AND OFFERED A RAPID TURNAROUND, QUALITATIVE SCREENING PROCEDURE TO AID IN THE IMMEDIATE MEDICAL ASSESSMENT OF PATIENTS SUSPECTED OF SUBSTANCE ABUSE. 10/22/2024 11:04 PM CDT [facility] Comment: CLINICAL CONSIDERATION AND PROFESSIONAL JUDGMENT MUST BE APPLIED TO ANY DRUG OF ABUSE TEST RESULT, BOTH POSITIVE AND NEGATIVE. CONFIRMATORY QUANTITATIVE RESULTS ARE AVAILABLE THROUGH OUR REFERENCE LABORATORY. URINE SPECIMEN / Unknown 10/22/2024 10:54 PM CDT us Mino Oneal MD URINE ORDERABLES Final Re sult [facility] [address] [place] [address], * (ABNORMAL) URINALYSIS (10/22/2024 10:54 PM CDT) COLOR (U) YELLOW 10/22/2024 11:23 PM CDT [facility] TRANSPARENCY CLEAR 10/22/2024 11:23 PM CDT [facility] SPECIFIC GRAVITY (U) 1.030(H) 1.000 - 1.025 10/22/2024 11:23 PM CDT [facility] Comment:EQUAL TO OR GREATER THAN U PH 5.0 5.0 - 8.0 10/22/2024 11:23 PM CDT [facility] LEUKOCYTES (U) NEGATIVE NEGATIVE 10/22/2024 11:23 PM CDT [facility] NITRITES NEGATIVE NEGATIVE 10/22/2024 11:23 PM CDT [facility] PROTEIN RANDOM (U) 1+(A) NEGATIVE 10/22/2024 11:23 PM CDT [facility] GLUCOSE (U) NEGATIVE NEGATIVE 10/22/2024 11:23 PM CDT [facility] KETONES MG/DL (U) 1+(A) NEGATIVE 10/22/2024 11:23 PM CDT [facility] UROBILINOGEN 0.2 <1.0 EU/DL 10/22/2024 11:23 PM CDT [facility] BILIRUBIN (U) NEGATIVE NEGATIVE 10/22/2024 11:23 PM CDT [facility] BLOOD (U) TRACE(A) NEGATIVE 10/22/2024 11:23 PM CDT [facility] WBC/HPF 0-5 0 - 5 /HPF 10/22/2024 11:23 PM CDT [facility] RBC/HPF 0-5 0 - 5 /HPF 10/22/2024 11:23 PM CDT [facility] OTHER CASTS (U) HYALINE /LPF 11:23 PM CDT [facility] Comment:10-20 URINE SPECIMEN OBTAINED BY CLEAN CATCH PROCEDURE / Unknown 10/22/2024 10:54 PM CDT us Mino Oneal MD URINE ORDERABLES Final Re sult [facility] [address] [place] [address], * XR HIP RT 2V (08/30/2024 2:04 PM CDT) Anatomical Region Laterality Modality Hip Radiographic Mary ging 08/30/2024 2:07 PM CDT Impressions 08/30/2024 2:09 PM CDT IMPRESSION: No acute findings. Interval arthroplasty. Ordered By: EFRA SERVIN Interpreted By: Baltazar Hedrick MD, 08/30/2024 2:07 PM Narrative 08/30/2024 2:09 PM CDT [place] [id number] [employer] [place] [address] Examination: Right hip. Exam time: 1333 hours. Clinical history: Pain after a fall. Comparison: 02/17/2024. Technique: Two views. Findings: No fracture, dislocation or other acute bony abnormality is identified. Arthroplasty is now in place with the components in satisfactory alignment and position. No other significant bone or joint abnormality is noted. The soft tissues are unremarkable. Procedure Note Baltazar Hedrick MD - 08/30/[address] [place] [address] Examination: Right hip. Exam time: 1333 hours. Clinical history: Pain after a fall. Comparison: 02/17/2024. Technique: Two views. Findings: No fracture, dislocation or other acute bony abnormality isidentified. Arthroplasty is now in place with the components insatisfactory alignment and position. No other significant bone or jointabnormality is noted. The soft tissues are unremarkable. IMPRESSION: No acute findings. Interval arthroplasty. Ordered By: EFRA SERVIN Interpreted By: Baltazar Hedrick MD, 08/30/2024 2:07 PM us Efra Servin DO GENERAL IMAGING Final Result * CT LUMB SPINE WO CON (08/30/2024 1:50 PM CDT) Anatomical Region Laterality Modality Spine Computed Tomogra phy 08/30/2024 2:08 PM CDT Impressions 08/30/2024 2:12 PM CDT IMPRESSION: 1. No acute lumbar fractures. 2. Mild degenerative changes. 3. Hepatic steatosis. Ordered By: EFRA SERVIN Interpreted By: Alton Smallwood MD, 08/30/2024 2:08 PM Narrative 08/30/2024 2:12 PM CDT [address] [place] [address] DATE: 08/30/2024 1:47 PM INDICATION: Mid to left-sided back pain. Fall. EXAMINATION: CT examination of the lumbar spine. TECHNIQUE: CT examination of the lumbar spine was performed with axial and multiplanar reformatted images obtained. A dose lowering technique was used for this procedure, which may include, but is not limited to, dose reduction technique, automated exposure control, the use of iterative reconstruction, and ALARA (As Low As Reasonably Achievable) / Image Gently techniques. COMPARISON: CT chest 07/27/2024. CT abdomen and pelvis 02/27/2014 FINDINGS: Review of prior CT examinations reveals 11 rib-bearing thoracic vertebral levels designated as T1-T11. The thoracolumbar junction is designated as T11-L1. Rudimentary left-sided riblet noted at the designated L1 vertebral level. The lumbar vertebral alignment, vertebral body heights, and facet alignment are maintained. No definite acute fractures identified in the lumbar spine. Mild degenerative changes are evident in the lumbar spine with mild disc degeneration, mild ligamentum flavum thickening, and mild facet hypertrophy. Examination of the individual lumbar intervertebral levels reveals no osseous spinal canal or foraminal compromise. Imaged portions of the soft tissues reveal hepatic steatosis. Procedure Note Alton Smallwood MD - 08/30/[address] [place] [address] DATE: 08/30/2024 1:47 PM INDICATION: Mid to left-sided back pain. Fall. EXAMINATION: CT examination of the lumbar spine. TECHNIQUE: CT examination of the lumbar spine was performed with axial andmultiplanar reformatted images obtained. A dose lowering technique was used for this procedure, which may include,but is not limited to, dose reduction technique, automated exposurecontrol, the use of iterative reconstruction, and ALARA (As Low AsReasonably Achievable) / Image Gently techniques. COMPARISON: CT chest 07/27/2024. CT abdomen and pelvis 02/27/2014 FINDINGS: Review of prior CT examinations reveals 11 rib-bearing thoracic vertebrallevels designated as T1-T11. The thoracolumbar junction is designated [id number]. Rudimentary left-sided riblet noted at the designated L1 vertebrallevel. The lumbar vertebral alignment, vertebral body heights, and facetalignment are maintained. No definite acute fractures identified in thelumbar spine. Mild degenerative changes are evident in the lumbar spinewith mild disc degeneration, mild ligamentum flavum thickening, and mildfacet hypertrophy. Examination of the individual lumbar intervertebrallevels reveals no osseous spinal canal or foraminal compromise. Imagedportions of the soft tissues reveal hepatic steatosis. IMPRESSION: 1. No acute lumbar fractures. 2. Mild degenerative changes. 3. Hepatic steatosis. Ordered By: EFRA SERVIN Interpreted By: Alton Smallwood MD, 08/30/2024 2:08 PM us Efra Servin DO CT Final Result * USV OTTONIEL DUPLEX LOW EXT CHRISTOPHER (07/27/2024 12:19 PM CDT) Anatomical Region Laterality Modality Extremity Ultrasound 07/27/2024 12:4 2 PM CDT Impressions 07/27/2024 12:43 PM CDT IMPRESSION: No evidence of deep venous thrombosis. Ordered By: ASHISH YOUNG Interpreted By: Baltazar Hedrick MD, 07/27/2024 12:42 PM Narrative 07/27/2024 12:43 PM [address]T [address] [place] [address] Examination: Bilateral lower extremity venous color Doppler ultrasound. Exam time: 1154 hours. Clinical history: Chest pain. Leg swelling. Recent right hip arthroplasty. Comparison: None. Technique: Grayscale and color Doppler images including spectral analysis. Findings: Color Doppler evaluation of the deep veins of the bilateral lower extremities demonstrates normal appearing color flow, spectra and compressibility throughout. No intraluminal filling defects are identified. Procedure Note Baltazar Hedrick MD - 07/27/[address] [place] [address] Examination: Bilateral lower extremity venous color Doppler ultrasound. Exam time: 1154 hours. Clinical history: Chest pain. Leg swelling. Recent right hip arthroplasty. Comparison: None. Technique: Grayscale and color Doppler images including spectralanalysis. Findings: Color Doppler evaluation of the deep veins of the bilaterallower extremities demonstrates normal appearing color flow, spectra andcompressibility throughout. No intraluminal filling defects areidentified. IMPRESSION: No evidence of deep venous thrombosis. Ordered By: ASHISH YOUNG Interpreted By: Baltazar Hedrick MD, 07/27/2024 12:42 PM Ashish Young SUPERINTENDENT [employer] US VASC Fin al Result * CTA CHEST PE PROTOCOL (07/27/2024 11:50 AM CDT) Anatomical Region Laterality Modality Chest Computed Tomogra phy 07/27/2024 12:1 6 PM CDT Impressions 07/27/2024 12:19 PM CDT IMPRESSION: No acute intrathoracic process identified. Negative for pulmonary embolism as described. Ordered By: ASHISH YOUNG Interpreted By: Baltazar Hedrick MD, 07/27/2024 12:16 PM Narrative 07/27/2024 12:19 PM CDT [address] [place] [address] Examination: CTA chest. Exam time: 1150 hours. Clinical history: Chest pain. Dyspnea. Recent hip arthroplasty. Comparison: None. Technique: Thin section spiral axial scans were acquired through the chest during the administration of intravenous contrast for evaluation of the great vessels. Coronal, sagittal and 3-D MIP coronal reconstructions were performed from the data set. A dose lowering technique was used for this procedure, which may include, but is not limited to, dose reduction techniques, automated exposure control, the use of iterative reconstruction and ALARA/Image Gently techniques. Findings: Motion limits assessment of the pulmonary arteries beyond the segmental branches. Within this limitation, no pulmonary embolism is identified. The heart and great vessels are otherwise unremarkable. No hilar or mediastinal adenopathy is identified. No endobronchial abnormality is identified. Allowing for the respiratory motion, the lungs are clear. There is no pleural effusion or pneumothorax. The chest wall structures appear intact. The included sections through the upper abdomen show no acute process. Procedure Note Baltazar Hedrick MD - 07/27/[address] [place] [address] Examination: CTA chest. Exam time: 1150 hours. Clinical history: Chest pain. Dyspnea. Recent hip arthroplasty. Comparison: None. Technique: Thin section spiral axial scans were acquired through the chestduring the administration of intravenous contrast for evaluation of thegreat vessels. Coronal, sagittal and 3-D MIP coronal reconstructions wereperformed from the data set. A dose lowering technique was used for thisprocedure, which may include, but is not limited to, dose reductiontechniques, automated exposure control, the use of iterativereconstruction and ALARA/Image Gently techniques. Findings: Motion limits assessment of the pulmonary arteries beyond thesegmental branches. Within this limitation, no pulmonary embolism isidentified. The heart and great vessels are otherwise unremarkable. Nohilar or mediastinal adenopathy is identified. No endobronchialabnormality is identified. Allowing for the respiratory motion, the lungsare clear. There is no pleural effusion or pneumothorax. The chest wallstructures appear intact. The included sections through the upper abdomenshow no acute process. IMPRESSION: No acute intrathoracic process identified. Negative for pulmonary embolismas described. Ordered By: ASHISH YOUNG Interpreted By: Baltazar Hedrick MD, 07/27/2024 12:16 PM Ashish Young SUPERINTENDENT FACTORY CT Fin al Result from Last 3 Months Insurance [facility] Care Teams Medical Sales Representative Relationship Specialty Start Date End Date Ashish Young NP [address] [place] [phone] PCP - General Nurse Practitioner Family 06/26/22
--- OUTSIDE RECORDS SUMMARY | 2024-10-25 15:09 | XMS_ITS | Encounter Summary ---
Author Organization [facility] Address [facility] [place] [address] Care Team Providers Care Java User Interface Developer Name Role Phone Adams Ricks CHANGE ROOM ATTENDANT Primary Care Provi shaheen Encounter Details Date Type Department Care Team (Late st Contact Info) Description 09/11/2018 Abstract SFL CONVERSION [address] [place] [address] , Generic Conversion, Social History Tobacco Use Types Packs/Day Years Used Date Smoking Tobacco: Never Assessed Comments Unknown Sex and Gender Information Value Date Recorded Sex Assigned at Female 04/26/2024 4:35 PM SCIENCE JOB TITLES Legal Sex Female 7:07 PM CDT Gender Identity Not on file Sexual Orientation Not on file documented as of this encounter Plan of Treatment Not on file documented as of this encounter Visit Diagnoses Not on filedocumented in this encounter Additional Health Concerns Infection Onset Date Last Indicated Resolved Time COVID-19 Rule Out 05/25/2023 05/25/2023 05/25/2023 5:45 PM SCIENCE JOB TITLES COVID-19 Rule Out 03/02/2024 03/02/2024 03/02/2024 12:25 PM SCIENCE JOB TITLES COVID-19 Rule Out 10/22/2024 10/22/2024 10/22/2024 11:33 PM CDT documented as of this encounter Care Teams Java User Interface Developer Relationship Specialty Start Date End Date Adams Ricks NP [address] [place] [phone] PCP - General Nurse Practitioner Family 06/26/22 documented as of this encounter
--- OUTSIDE RECORDS SUMMARY | 2024-10-25 15:09 | XMS_ITS | Clinical Summary ---
Author Organization [facility] Address [address] [place] [address] Care Team Providers Care Gluing Crew Leader Name Role Phone JenniferAdams shea Shar MANUEL-SHIPPER RECEIVER Primary Care Provide r Source Comments [facility],non-owned Affiliates and Associated Physician Practices is amultiple site organization consisting of ambulatory clinics and hospital sitesin [place], [place], [place] and [place]. This disclosure is being madepursuant to the Care Everywhere program and may not contain all information available regarding this patient. Last updated 17.[facility] Allergies Active Allergy Reactions Criticality Noted Date Comments Rashid Other Medium 05/10/2024 Rashid fruit, rashid flavor okay Mouth and throat gibson and [...] Active vitamin D, ergocalciferol, (Drisdol) 1.25 MG (76746 UT) capsule Take 1 (one) capsule by [...] 2 times daily 60 tablet 5 Active Active Problems Problem Noted Date Diagnosed Date Primary osteoarthritis of right hip 07/08/2024 Hip pain 09/24/2012 Social History Tobacco Use Types Packs/Day Years Used Date Smoking Tobacco: Never Smokeless Tobacco: Never Tobacco Cessation:Counseling Given: Not Answered Alcohol Use Standard Drinks/Week Comments Yes 3 (1 standard drink = 0.6 oz pur e alcohol) Comments No Sex and Gender Information Value Date Recorded Sex Assigned at Not on file Legal Sex Female 5:41 AM TRANSPORTATION ATTENDANT Gender Identity Not on file Sexual Orientation [...] Health Maintenance Due Date Last Done Comments HIV SCREENING 2008 HEPATITIS C SCREENING 05/20/2011 DTAP/TDAP/TD VACCINES (1 - Tdap) 2012 HEPATITIS B VACCINE (1 of 3 - 19+ 3-dose series) 2012 PNEUMOCOCCAL VACCINE (1 of 2 - PCV) 2012 PAP SMEAR 2014 HPV VACCINE (1 - 3-dose SCDM series) 2020 COVID-19 VACCINE (1 - 2023-2 5 season) 2023 DEPRESSION SCREENING 04/06/2024 INFLUENZA VACCINE (#1) 2024 ZOSTER VACCINE (1 of 2) 2043 [...] this topic Medical Devices Implanted Type Area Business Integration Manager Device Identifier Shelf Expiration Date Model / Serial / Lot Shell Actb 48mm Hip 3 Screw Hl Clstr Implanted:Qty: 1 on 07/08/2024 by Baltazar Vigil DO at [facility][note 3] Right: Hip [employer] 03/10/2029 [id number] / / [id number] Impl Hip Stm 99mm Nk 36mm Insg 2 Hi Stm Implanted:Qty: 1 on 07/08/2024 by Baltazar Vigil DO at [facility][note 3] Right: Hip [employer] 10/11/2028 [id number] / / [id number] Liner Actb Mdm D 38mm Cocr Hip 22.2mm Implanted:Qty: 1 on 07/08/2024 by Baltazar Vigil DO at [facility][note 3] Right: Hip [employer] 05/23/2029 [id number] / / [id number] Head Fem +0mm Ofst Tpr 28mm Hip Blx D Implanted:Qty: 1 on 07/08/2024 by Baltazar Vigil DO at [facility][note 3] Right: Hip [employer] 12/16/2028 [id number] / / [id number] Mdm X3 Insert For Mdm Liner, 38d Implanted:Qty: 1 on 07/08/2024 by Baltazar Vigil DO at [facility][note 3] Right: Hip [employer] 02/06/2029 [id number] / / [id number] Insurance SELF PAY NO INSURANCE Member Subscriber Plan / Payer (Ef fective for All Dates) Name:Claudia Lobo Member ID:Not on file Relation to Subscriber:Self Name:CLAUDIA LOBO Subscriber ID:Not on file Payer ID:Not on file Group ID:Not on file Type:Self Pay Address: [facility] Advance Directives * Full Code (Latest Code Status on File) Date Activated Date Inactivated Comments 07/08/2024 3:47 PM 07/11/2024 4:43 PM Care Teams Gluing Crew Leader Relationship Specialty Start Date End Date Adams Ricks, CONTRACT LAW SPECIALIST-SHIPPER RECEIVER [address] [place] [phone] PCP - General Internal Medicine 07/04/24
--- OUTSIDE RECORDS SUMMARY | 2024-10-25 15:09 | XMS_ITS | Encounter Summary ---
Author Organization [facility] Address [facility] [place] [address] Care Team Providers Care Security Director Name Role Phone Héctor Rodriguez MD Primary Care Provider Unavailable Adams Ricks NP Primary Care Provi shaheen Encounter Details Date Type Department Care Team (Late st Contact Info) Description 02/07/2017 Abstract [place] [address] Héctor Rodriguez MD Social History Tobacco Use Types Packs/Day Years Used Date Smoking Tobacco: Never Assessed Comments Unknown Sex and Gender Information Value Date Recorded Sex Assigned at Female 04/26/2024 4:35 PM MIDDLEWARE ARCHITECT Legal Sex Female 7:07 PM CDT Gender Identity Not on file Sexual Orientation Not on file documented as of this encounter Plan of Treatment Not on file documented as of this encounter Visit Diagnoses Not on filedocumented in this encounter Additional Health Concerns Infection Onset Date Last Indicated Resolved Time COVID-19 Rule Out 05/25/2023 05/25/2023 05/25/2023 5:45 PM MIDDLEWARE ARCHITECT COVID-19 Rule Out 03/02/2024 03/02/2024 03/02/2024 12:25 PM MIDDLEWARE ARCHITECT COVID-19 Rule Out 10/22/2024 10/22/2024 10/22/2024 11:33 PM CDT documented as of this encounter Care Teams Security Director Relationship Specialty Start Date End Date Héctor Rodriguez MD PCP - General 02/27/14 06/17/17 Adams Ricks NP [address] [place] [phone] PCP - General Nurse Practitioner Family 06/26/22 documented as of this encounter
--- OUTSIDE RECORDS SUMMARY | 2024-10-25 15:09 | XMS_ITS | Continuity of Care Document ---
Author Organization [facility] Address [address] [place] [address] Phone Care Team Providers Care Yarn Hauler Name Role Phone Carlos Alberto KIRKPATRICK, Jose Unavailable Unavailabl e Allergies, Adverse Reactions, Alerts Substance Reaction Status Criticality [place] Active No Information morphine Active No Information Medications Medication Instructions Dosage Effective Dates (start - stop) Status Comments oxycodone 5 mg tablet take 1 tablet by o ral route every 6 hours as needed; do [...] 200 MG - Active Procedures Procedure Date OFFICE/OUTPATIENT VISIT NEW Triamcinolone acet inj NOS Drugs unclassified injection INJ TENDON SHEATH/LIGAMENT POSTOP FOLLOW-UP VISIT POSTOP FOLLOW-UP VISIT X-RAY HIP UNI W PELVIS 2-3 VIEWS 2024 POSTOP FOLLOW-UP VISIT POSTOP FOLLOW-UP VISIT X-RAY HIP UNI W PELVIS 2-3 VIEWS Apr-22- 2025 POSTOP FOLLOW-UP VISIT X-RAY HIP UNI W PELVIS 2-3 VIEWS 2024 TOTAL HIP ARTHROPLASTY RADEX SPI LUMBOSAC 2/3 VIEWS X-RAY HIP UNI W PELVIS 2-3 VIEWS 2024 OFFICE/OUTPATIENT VISIT NEW Advance Directives Directive Yes / No Effective Date File Name No Information Encounters Encounter Description Practice Location Reason(s) For Visit Diagnoses Date Provider Providers Copied on Encounter OFFICE/OUTPA TIENT VISIT NEW [facility] , [address], [place], [address], [place] tel:[phone] [facility] allergy evaluation (chief complaint) Right hip painDelayed hypersensitiv ity disorderAller gic contact dermatitis due to metalsH/O metal allergy 5 Carlos Alberto Hamsa. [address], [place], [place], [id number]. tel:[phone] [facility], [address], [place], [address], [place] tel:[phone] [facility] Right hip painStatus post right hip replacement 5 Musa Ledesma. [address], [place], [place], [id number]. tel:[phone] [facility], [address], [place], [address], [place] tel:[phone] [facility] [place] Status post right hip replacementRi ght hip painUnilatera l primary osteoarthriti s, right hip 5 Musa Ledesma. [address], [place], [place], [id number]. tel:[phone] Referring Provider: Adams Myles, [address] [place] [address] [address], [place], [address] . tel:[phone] [facility], [address], [place], [address], [place] tel:[phone] [facility] [place] Status post right hip replacementRi ght hip pain Reynaldo-0 3-202 5 Musa Ledesma. [address], [place], [place], [id number]. tel:[phone] Referring Provider: Adams Myles, [address], [place], [address] . tel:[phone] [facility], [address], [place], [address], [place] tel:[phone] [facility] [place] Status post right hip replacementUn ilateral primary osteoarthriti s, right hip May-2 7- 5 Stephanie Perez. [address], [place], [address], [place]. tel:[phone] Referring Provider: Mauro Bonilla, [address] [place] [address], [address] . tel:[phone] [facility], [address], [place], [address], [place] tel:[phone] [facility] [place] Status post right hip replacementUn ilateral primary osteoarthriti s, right hip August-2 0- 5 Abhinav Joshi. [address], [place], [place], [id number], [place]. tel:[phone] Referring Provider: Mauro Bonilla, [address] [place] [address], [address] . tel:[phone] [facility], [address], [place], [address], [place] tel:[phone] [facility] [place] Status post right hip replacement Apr-2 2- 5 Stephanie Perez. [address], [place], [address], [place]. tel:[phone] Referring Provider: Mauro Bonilla, [address] [place] [address], [address] . tel:[phone] [facility], [address], [place], [address], [place] tel:[phone] [facility] [place] Unilateral primary osteoarthriti s, right hipStatus post right hip replacement Jul- 5 Stephanie Perez. [address], [place], [address], [place]. tel:[phone] Referring Provider: Mauro Bonilla, [address] [place] [address], [address] . tel:[phone] [facility], [address] [address], [place], [address], [place] tel:[phone] [facility] Unilateral primary osteoarthriti s, right hip Jun-3 5 Musa Ledesma. [address], [place], [place], [id number]. tel:[phone] [facility], [address] [address], [place], [address], [place] tel:[phone] [facility] Primary osteoarthriti s of right hip Jun- 5 Musa Ledesma. [address], [place], [place], [id number]. tel:[phone] [facility], [address] [address], [place], [address], [place] tel:[phone] [facility] Primary osteoarthriti s of right hipEncounter for other preprocedural examinationCl ass 1 obesity with body mass index (BMI) of 34.0 to 34.9 in adult, unspecified obesity type, unspecified whether serious comorbidity presentBody mass index [BMI] 34.0-34.9, adult Mar-0 - 5 Musa Ledesma. [address], [place], [place], [id number]. tel:[phone] OFFICE/OUTPA TIENT VISIT NEW [facility], [address], [place], [address], [place] tel:[phone] [facility] [place] Right hip painPrimary osteoarthriti s of right hip Fe-0 Musa Ledesma. [address], [place], [place], [address]. tel:[phone] Referring Provider: Mauro Bonilla, [address] [place] [address], [address] . tel:[phone] Family History Family Member Type Diagnosis Age At Onset No Information Payers Payer name Insurance type Covered republican ID Sedrick pugh(s) [employer] [place] [id number] Social History Type Description Quantity Date Captured Comments Alcohol Use Details Caffeine Use Details Unknown Tobacco Use Status Current non-smoker Smoking Status Never smoker Non-Smoking Tobacco Use Details : No Details Available : No Details Available Sex Female Vital Signs Date / Time: Height Weight BMI Pulse Rate Blood Pressure Temperature Respiratory Rate Body Surface Area Head Circumference Head Circ. Percentile Wt./Onofre. Percentile BMI percentile Pulse Ox Inhaled Ox 9:04 AM 66.00 in 102.058 kg (225.00 lbs) 36.3 2 kg/m eter (2) 82 /min 118/88 mm[Hg] 98 % Chief Complaint And Reason For Visit From encounter dated '10/24/2024 09:00'. allergy evaluation (chief complaint). Description: Referred by Dr. 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 2015 she had a total hip replacement on the left side and found out that he did not have any cobalt in itIn November 2023, she had a right hip debridement and a labium repair.July 2024 shehad a right total hip replacement after which she has never been able to recover.There is fluid buildup post surgery. It was drained and she has been having a lot of pain, she has no reflux in her lower extremity. In addition to the above, she has multiple non-specific symptoms as well. Which includes headaches. , Loss of vision, not sure how this fits into a possible delayed hypersensitivity reaction. She is worried about the cobalt and her hip.With multiple surgery, she has never had problemswith anesthesia, multiple dental fillings without any problems no history of eczema no history of random hivesShe cannot wear cheap jewelers because the ears it. She wears a ring but does not know what metal it is made up of.She has multiple tattoos. They are also colored. They have a blue and a green color to them. They do not bother her. She color her hair every two months and there is no scalpitching Reason For Referral Reason For Referral No Information Plan Of Treatment Date Type Action Status Referral Ordered: Jose Carcamo -[facility] : Allergy & Immunology (related to Status post right hip replacement) ordered Referral Referred To: Jose Carcamo [address] [place], [place], [phone] Ordered: Referrals: [facility] : Allergy & Immunology. Jose Carcamo. 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 2015 she had a total hip replacement on the left side and found out that he did not have any cobalt in itIn November 2023, she had a right hip debridement and a labium repair.July 2024 she had a right total hip replacement after which she has never been able to recover.There is fluid buildup post surgery. It was drained and she has been having a lot of pain, she has no reflux in her lower extremity. In addition to the above, she has multiple non-specific symptoms as well. Which includes headaches. , Loss of vision, not sure how this fits into a possible delayed hypersensitivity reaction. She is worried about the cobalt and her hip.With multiple surgery, she has never had problems with anesthesia, multiple dental fillings without any problems no history of eczema no history of random hivesShe cannot wear cheap jewelers because the ears it. She wears a ring but does not know what metal it is made up of.She has multiple tattoos. They are also colored. They have a blue and a green color to them. They do not bother her. She color her hair every two months and there is no scalp itching Functional Status Date Functional Assessmen t No Information Instructions Date Instruction Additional Infor mation No Information Assessments Type Assessment Date assessment Right hip pain assessment Delayed hypersensitivity disorde r assessment Allergic contact dermatitis due to metals assessment H/O metal allergy impression Skin looks normal to examination, patient does not demographic. There are no hives or rashes.Based on her history and the consultation patient was counseled about patch testing. She was told. to leave the patch on her back for the next 48 hours Avoid getting her back wet. I have reviewed all her medication's currently there is no contraindication. She is not on prednisone. She cannot be on any form of steroids till the final testing is done. The first removal and reading will be done in 48 hours after which I plan to bring her back in one week. For a final reading. Eight different metals and two bone cement were placed. impression cannot wear cheap jewellery and she is worried about cobalt Patient Care Teams Name Effective Dates (start - stop) Status Members No Information
== END 2024-10-25 15:05 | disposition home or self-care (01) ==
LOC: CHSLAB 15:06
PROVIDERS: PCP Registered Nurse; Visit Provider Registered Nurse
DX: M25.551 Pain in right hip (principal)
CPT/HCPCS: 36415; 83018

== ENCOUNTER 2024-10-27 09:49 | Outpatient (CLI) | payer OTHER, SELFPAY ==
--- NOTE | ~2024-10-27 | MR_ITS ---
EXAMINATION: MR brain/brain stem wo con DATE: 10/27/2024 10:56 INDICATION: Headaches and visual changes post right hip replacement TECHNIQUE: Magnetic resonance imaging (MRI) of the brain and brainstem was performed without intraven ous contrast. Sequences included sagittal and axial T1-weighted SE, axial diffusion-weighted FS SE, a xial T2*-weighted GRE, axial T2-weighted FLAIR, and axial T2-weighted FSE. Apparent diffusion coeffic ient (ADC) maps were created. COMPARISON: Head CT dated 09/02/2024 FINDINGS: There are no areas of restricted diffusion to suggest acute infarction. No intracranial hemorrhage or abnormal intracranial mass lesion. There are no intraparenchymal signal abnormalities seen on the ot her pulse sequences. The ventricles are symmetric and normal in size. There are no abnormal extra-axi al fluid collections. Flow voids are seen in the cerebral arteries on the T2-weighted sequences consi stent with their expected patency. Visualized orbits and soft tissues are unremarkable. There are no areas of abnormal enhancement on the post contrast images. IMPRESSION: 1. Normal brain MR. Reviewed, dictated and finalized at location A. IMPRESSION: 1. Normal brain MR.
--- NOTE | ~2024-10-27 | MR_ITS ---
EXAMINATION: MR lumbar spine wo con DATE: 10/27/2024 10:56 INDICATION: Right hip pain, status post right hip replacement. TECHNIQUE: Magnetic resonance imaging (MRI) of the lumbar spine was performed without intravenous con trast. Sequences included sagittal T2-weighted FSE, sagittal T2-weighted FS FSE, sagittal T1-weighted FSE, and axial T2-weighted FSE. COMPARISON: CTPA 09/02/2024; CT abdomen pelvis 02/18/2023 FINDINGS: Transitional anatomy. 4 nonrib-bearing lumbar-type vertebral bodies. Sacralization of L5. 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 The last fully formed and hydrated disc is designated L4-5. Rudimentar y disc at L5-S1. The marrow signal is benign and homogenous. Conus terminates at L2. Mild loss of dis c height and hydration at L4-5. The remaining discs are well hydrated. The following disc levels are specifically discussed: T11-T12: The disc does not extend beyond the endplate margin. There is no facet joint osteoarthritis. There is no neural foraminal stenosis. There is no central canal stenosis. T12-L1: The disc does not extend beyond the endplate margin. There is mild facet joint osteoarthritis . There is no neural foraminal stenosis. There is no central canal stenosis. L1-L2: The disc does not extend beyond the endplate margin. There is mild facet joint osteoarthritis. There is no neural foraminal stenosis. There is no central canal stenosis. L2-L3: The disc does not extend beyond the endplate margin. There is mild facet joint osteoarthritis. There is no neural foraminal stenosis. There is no central canal stenosis. L3-L4: The disc does not extend beyond the endplate margin. There is mild facet joint osteoarthritis. There is no neural foraminal stenosis. There is no central canal stenosis. L4-L5: Mild disc bulge. 3 mm central protrusion. There is mild facet joint osteoarthritis. There is n o neural foraminal stenosis. There is no central canal stenosis. L5-S1: Rudimentary disc. There is no facet joint osteoarthritis. There is no neural foraminal stenosi s. There is no central canal stenosis. IMPRESSION: Transitional lumbosacral anatomy, with sacralization of L5. Mild degenerative disc disease at L4-5 with a 3 mm central protrusion. Mild multilevel facet arthropathy. Reviewed, dictated and finalized at location K.
--- OUTSIDE RECORDS SUMMARY | 2024-10-27 09:57 | XMS_ITS | Continuity of Care Document ---
Author Organization [facility] Address [address] [place] [address] Phone Care Team Providers Care Director Embalmer Name Role Phone Carlos Alberto KIRKPATRICK, Jose [...] - Active Procedures Procedure Date OFFICE/OUTPATIENT VISIT EST OFFICE/OUTPATIENT VISIT NEW Triamcinolone acet inj NOS [...] Providers Copied on Encounter OFFICE/OUTPA TIENT VISIT EST [facility] , [address], [place], [address], [place] tel:[phone] [facility] Follow up (chief complaint) H/O metal allergyAllerg ic contact dermatitis due to metals 5 Carlos Alberto Hamsa. [address], [place], [place], [address]. tel:[phone] OFFICE/OUTPA TIENT VISIT NEW [facility] , [address], [place], [address], [place] tel:[phone] [facility] allergy evaluation (chief complaint) Right hip painDelayed hypersensitiv ity disorderAller gic contact dermatitis due to metalsH/O metal allergy 5 Carlos Alberto Hamsa. [address], [place], [place], [address]. tel:[phone] [facility], [address], [place], [address], [place] tel:[phone] [facility] Right hip painStatus post right hip replacement 5 Musa Ledesma. [address], [place], [place], [address]. tel:[phone] [facility], [address], [place], [address], [place] tel:[phone] [facility] [place] Status post right hip replacementRi ght hip painUnilatera l primary osteoarthriti s, right hip 5 Musa Ledesma. [address], [place], [place], [address]. tel:[phone] Referring Provider: Adams Myles, [facility], [place], [address] . tel:[phone] [facility], [address], [place], [address], [place] tel:[phone] [facility] [place] Status post right hip replacementRi ght hip pain Reynaldo- 5 Musa Ledesma. [address], [place], [place], [address]. tel:[phone] Referring Provider: Adams Myles, [facility], [place], [address] . tel:[phone] [facility], [address], [place], [address], [place] tel:[phone] [facility] Status post right hip replacementUn ilateral primary osteoarthriti s, right hip August- 5 Stephanie Ana. [address], [place], [address], [place]. tel:[phone] Referring Provider: Mauro Bonilla, [address] [place] [address], [address] . tel:[phone] [facility], [address], [place], [address], [place] tel:[phone] [facility] Status post right hip replacementUn ilateral primary osteoarthriti s, right hip 5 La Madelyn. [address], [place], [place], [address], [place]. tel:[phone] Referring Provider: Mauro Bonilla, [address] [place] [address], [address] . tel:[phone] [facility], [address], [place], [address], [place] tel:[phone] [facility] [place] Status post right hip replacement Jul-2 2- 5 [place] Ana. [address], [place], [address], [place]. tel:[phone] Referring Provider: Mauro Bonilla, [address] [place] [address], [address] . tel:[phone] [facility], [address], [place], [address], [place] tel:[phone] [facility] Unilateral primary osteoarthriti s, right hipStatus post right hip replacement Jul-04 10- 5 [place] Ana. [address], [place], [address], [place]. tel:[phone] Referring Provider: Mauro Bonilla, [address] [place] [address], [address] . tel:[phone] [facility], [address], [place], [address], [place] tel:[phone] [facility] Unilateral primary osteoarthriti s, right hip Mar-3 5 Musa Ledesma. [address], [place], [place], [address]. tel:[phone] [facility], [address], [place], [address], [place] tel:[phone] [facility] Primary osteoarthriti s of right hip Mar-1 5 Musa Ledesma. [address], [place], [place], [address]. tel:[phone] [facility], [address], [place], [address], [place] tel:[phone] [facility] Primary osteoarthriti s of right hipEncounter for other preprocedural examinationCl ass 1 obesity with body mass index (BMI) of 34.0 to 34.9 in adult, unspecified obesity type, unspecified whether serious comorbidity presentBody mass index [BMI] 34.0-34.9, adult Mar-0 5 Musa Ledesma. [address], [place], [place], [address]. tel:[phone] OFFICE/OUTPA TIENT VISIT NEW [facility], [address], [place], [address], [place] tel:[phone] [facility] Right hip painPrimary osteoarthriti s of right hip Fe-0 5 Musa Ledesma. [address], [place], [place], [address]. tel:[phone] Referring Provider: Mauro Bonilla, [address] [place] [address], [address] . tel:[phone] Family History Family Member Type Diagnosis Age At Onset No Information Payers Payer name Insurance type Covered republican ID Authormaryann pugh(s) [employer] Plus [id number] Social History Type Description Quantity Date Captured Comments Alcohol Use Details Unknown Caffeine Use Details Unknown Tobacco Use Status No Information Smoking Status No Information Sex Female Chief Complaint And Reason For Visit From encounter dated '10/26/2024 09:00'. Follow up (chief complaint). Description: Here for patch test reading that was placed [id number] hours prior Reason For Referral Reason For Referral No Information Plan Of Treatment Date Type Action Status Referral Ordered: Jose Carcamo -[facility]opathic & Osteopathic Physicians : Allergy & Immunology (related to Status post right hip replacement) ordered Referral Referred To: Jose Carcamo [address] [place], [place], [phone] Ordered: Referrals: Allopathic & Osteopathic Physicians : [...] Future Order: Lab Order CBC With Differential/Platelet ([id number]), Sent on: Sent Future Order: Lab Order Sediment ation Rate-Westergren ([id number]), Sent on: Sent Future Order: Lab Order C-Reacti ve Protein, Quant ([id number]), Sent on: Sent History Of Present Illness Encounter Date Complaint History Of Prese nt Illness Follow up Here for patch t est reading that was placed approximately 48 hours prior allergy evaluation Referred by Fran Vigil 31 [...] No Information Assessments Type Assessment Date assessment H/O metal allergy assessment Allergic contact dermatitis due to metals impression Patch test was place d on 24 October, patient is here for the patches to be removed and for the first reading. however, the patch test is not stuck completely to her. Skin, it came off. Today reading could not be done instead. The patch test was reinforced back in place and she will come back in another 48 hours. Patient Care Teams Name Effective Dates (start - stop) Status Members No Information
--- OUTSIDE RECORDS SUMMARY | 2024-10-27 09:57 | XMS_ITS | Clinical Summary ---
Author Organization [facility] Address [address] [place] [address] Care Team Providers Care Director Executive Communications Name Role Phone JenniferAdams shea Shar MANUEL-CLINICAL SYSTEMS EDUCATOR Primary Care Provide r Source Comments [facility],non-owned Affiliates and Associated Physician Practices is amultiple site organization consisting of ambulatory clinics and hospital sitesin [place], [place], [place] and [place]. This disclosure is being madepursuant to the Care Everywhere program and may not contain all information available regarding this patient. 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 Gender Identity Not on file Sexual Orientation [...] this topic Medical Devices Implanted Type Area Puppet Master Device Identifier Shelf Expiration Date Model / Serial / Lot Shell Actb 48mm Hip 3 Screw Hl Clstr Implanted:Qty: 1 on 07/08/2024 by Baltazar Vigil DO at [facility] Right: Hip [employer] 03/10/2029 702-04-48D / / [id number] Impl Hip Stm 99mm Nk 36mm Insg 2 Hi Stm Implanted:Qty: 1 on 07/08/2024 by Baltazar Vigil DO at [facility] Right: Hip [employer] 10/11/2028 [id number] / / [id number] Liner Actb Mdm D 38mm Cocr Hip 22.2mm Implanted:Qty: 1 on 07/08/2024 by Baltazar Vigil DO at [facility] Right: Hip [employer] 05/23/2029 626-00-38D / / [id number] Head Fem +0mm Ofst Tpr 28mm Hip Blx D Implanted:Qty: 1 on 07/08/2024 by Baltazar Vigil DO at [facility] Right: Hip [employer] 12/16/2028 6570-0-128 / / [id number] Mdm X3 Insert For Mdm Liner, 38d Implanted:Qty: 1 on 07/08/2024 by Baltazar Vigil DO at [facility] Right: Hip [employer] 02/06/2029 7236-2-844 / / [id number] Insurance SELF PAY NO INSURANCE Member Subscriber Plan / Payer (Ef fective for All Dates) Name:Claudia Lobo Member ID:Not on file Relation to Subscriber:Self Name:CLAUDIA LOBO Subscriber ID:Not on file Payer ID:Not on file Group ID:Not on file Type:Self Pay Address: [facility] Advance Directives * Full Code (Latest Code Status on File) Date Activated Date Inactivated Comments 07/08/2024 3:47 PM 07/11/2024 4:43 PM Care Teams Director Executive Communications Relationship Specialty Start Date End Date Adams Ricks, TOLL BRIDGE OPERATOR-CLINICAL SYSTEMS EDUCATOR [address] [place] [phone] PCP - General Internal Medicine 07/04/24
== END 2024-10-27 09:50 | disposition home or self-care (01) ==
LOC: CHSIMG 09:52
PROVIDERS: PCP Registered Nurse
DX: M25.551 Pain in right hip (principal); M16.11 Unilateral primary osteoarthritis, right hip; Z96.641 Presence of right artificial hip joint; H53.9 Unspecified visual disturbance; M51.369 Other intervertebral disc degeneration, lumbar region without mention of lumbar back pain or lower extremity pain; M47.816 Spondylosis without myelopathy or radiculopathy, lumbar region
CPT/HCPCS: 70551; 72148

== ENCOUNTER 2024-12-22 12:42 | Emergency (ER) | payer OTHER, SELFPAY ==
[2024-12-22 12:42] VITALS: BP 129/86; PULSE 78; RESP 14; TEMP 36.8; O2SAT 98
--- OUTSIDE RECORDS SUMMARY | 2024-12-22 12:45 | XMS_ITS | Clinical Summary ---
Author Organization [facility] Address [address] [place] [address] Care Team Providers Care Framing Consultant Name Role Phone JenniferAdams shea Shar MANUEL-DNA SEQUENCING ASSOCIATE Primary Care Provide r Source Comments [facility],non-owned Affiliates and Associated Physician Practices is amultiple site organization consisting of ambulatory clinics and hospital sitesin [place], [place], [place] and [place]. This disclosure is being madepursuant to the Care Everywhere program and may not contain all information available regarding this patient. 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 Gender Identity Not on file Sexual Orientation [...] VACCINE (1 - 3-dose SCDM series) 2020 DEPRESSION SCREENING 04/06/2024 COVID-19 VACCINE (1 - 2023-2 5 season) 2024 INFLUENZA VACCINE (#1) 2024 ZOSTER VACCINE (1 [...] this topic Medical Devices Implanted Type Area Geological Engineer Device Identifier Shelf Expiration Date Model / Serial / Lot Shell Actb 48mm Hip 3 Screw Hl Clstr Implanted:Qty: 1 on 07/08/2024 by Baltazar Vigil DO at [facility] Right: Hip [employer] 03/10/2029 702-04-48D / / [id number] Impl Hip Stm 99mm Nk 36mm Insg 2 Hi Stm Implanted:Qty: 1 on 07/08/2024 by Baltazar Vigil DO at [facility] Right: Hip [employer] 10/11/2028 [id number] / / [id number] Liner Actb Mdm D 38mm Cocr Hip 22.2mm Implanted:Qty: 1 on 07/08/2024 by Baltazar Vigil DO at [facility] Right: Hip [employer] 05/23/2029 626-00-38D / / [id number] Head Fem +0mm Ofst Tpr 28mm Hip Blx D Implanted:Qty: 1 on 07/08/2024 by Baltazar Vigil DO at [facility] Right: Hip [employer] 12/16/2028 6570-0-128 / / [id number] Mdm X3 Insert For Mdm Liner, 38d Implanted:Qty: 1 on 07/08/2024 by Baltazar Vigil DO at [facility] Right: Hip [employer] 02/06/2029 7236-2-844 / / [id number] Insurance SELF PAY NO INSURANCE Member Subscriber Plan / Payer (Ef fective for All Dates) Name:Claudia Lobo Member ID:Not on file Relation to Subscriber:Self Name:CLAUDIA LOBO Subscriber ID:Not on file Payer ID:Not on file Group ID:Not on file Type:Self Pay Address: [facility] Advance Directives * Full Code (Latest Code Status on File) Date Activated Date Inactivated Comments 07/08/2024 3:47 PM 07/11/2024 4:43 PM Care Teams Framing Consultant Relationship Specialty Start Date End Date Adams Ricks, TRACK SERVICE WORKER-DNA SEQUENCING ASSOCIATE [address] [place] [phone] PCP - General Internal Medicine 07/04/24
--- OUTSIDE RECORDS SUMMARY | 2024-12-22 12:45 | XMS_ITS | Encounter Summary ---
Author Organization [facility] Address [facility] [place] [address] Care Team Providers Care Cad Manager Name Role Phone Héctor Rodriguez MD Primary Care Provider Unavailable Adams Ricks NP Primary Care Provi shaheen Encounter Details Date Type Department Care Team (Late st Contact Info) Description 02/07/2017 Abstract [place] [address] Héctor Rodriguez MD Social History Tobacco Use Types Packs/Day Years Used Date Smoking Tobacco: Never Assessed Comments Unknown Sex and Gender Information Value Date Recorded Sex Assigned at Female 04/26/2024 4:35 PM 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 Legal Sex Female 7:07 PM CDT Gender Identity Not on file Sexual Orientation Not on file documented as of this encounter Plan of Treatment Not on file documented as of this encounter Visit Diagnoses Not on filedocumented in this encounter Additional Health Concerns Infection Onset Date Last Indicated Resolved Time COVID-19 Rule Out 05/25/2023 05/25/2023 05/25/2023 5:45 PM 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 COVID-19 Rule Out 03/02/2024 03/02/2024 03/02/2024 12:25 PM 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 COVID-19 Rule Out 10/22/2024 10/22/2024 10/22/2024 11:33 PM CDT documented as of this encounter Care Teams Cad Manager Relationship Specialty Start Date End Date Héctor Rodriguez MD PCP - General 02/27/14 06/17/17 Adams Ricks NP [address] [place] [phone] PCP - General Nurse Practitioner Family 06/26/22 documented as of this encounter
--- OUTSIDE RECORDS SUMMARY | 2024-12-22 12:45 | XMS_ITS | Clinical Summary ---
Author Organization [facility] Address [address] [place] [address] Care Team Providers Care Loader Helper Sorting Yard Name Role Phone Adams Ricks NP Primary Care Provi shaheen Allergies Active [...] 04/12/2024 Active VIIBRYD 20 MG tablet Take 2 tablets (40 mg total) by mouth daily. 03/18/2024 Active hydrOXYzine (ATARAX) 25 MG tablet Take [...] by mouth 3 (three) times daily. Active Active Problems Problem Noted Date Diagnosed Date S/P hip arthroscopy 11/18/2023 History of total hip arthroplasty, left 06/27/19 23 Encounters Date Type Department Care Team Description 10/22/2024 10:46 PM CDT - 10/23/2024 6:45 AM CDT Emergency [facility] [address] [place] [address] [place] [address] Bhaskar Oneal MD Suicidal Ideation Discharge Disposition: Home or Self Care (Routine Discharge) 10/22/2024 Travel 10/12/2024 9:25 AM CDT - 10/12/2024 10:55 AM CDT Emergency [facility] [address] [place] [address] [place] [address] Adi Kirby MD Dizziness; Headache Discharge Disposition: Home or Self Care (Routine Discharge) 10/12/2024 Travel from Last 3 Months Family History [...] Sex Assigned at Female 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 ALCOHOL S/P/B 0.048(H) <0.003 G/DL 10/23/2024 2:14 AM CDT [facility] 10/23/2024 1:50 AM CDT us Bhaskar Oneal MD LABORATORY Final Res ult Performing Organization Address City/[facility]/ZIP Co de Phone Number [facility] [address] [place] [address], [place] [phone] * TSH W/REFLEX (10/22/2024 11:15 PM CDT) TSH 3.441 0.358 - 3.740 uIU/ML 10/23/2024 12:04 AM CDT [facility] Comment: FREE T4 NOT INDICATED ASSAY PERFORMED BY CHEMILUMINESCENT IMMUNOASSAY METHODOLOGY USING SIEMENS DIMENSION REAGENT. PATIENT RESULTS DETERMINED BY ASSAYS FROM DIFFERENT MANUFACTURERS AND/OR BY DIFFERENT METHODS MAY NOT BE COMPARABLE. 10/22/2024 11:1 5 PM CDT us Bhaskar Oneal MD LABORATORY Final Res ult [facility] [address] [place] [address], [place] [phone] * (ABNORMAL) COMPREHENSIVE METABOLIC PANEL (10/22/2024 11:15 PM CDT) SODIUM S/P/B 140 136 - 145 MMOL/L 10/23/2024 12:04 AM T [facility] POTASSIUM S/P/B 4.0 3.5 - 5.1 MMOL/L 10/23/2024 12:04 AM T [facility] CHLORIDE S/P/B 103 98 - 107 MMOL/L 10/23/2024 12:04 AM T [facility] CO2 20.9(L) 21.0 - 32.0 MMOL/L 10/23/2024 12:04 AM T [facility] GLUCOSE 123(H) 70 - 99 MG/DL 10/23/2024 12:04 AM T [facility] Comment: FASTING GLUCOSE 100 TO 125 MG/DL IS CONSISTENT WITH IMPAIRED FASTING GLUCOSE. FASTING GLUCOSE >125 MG/DL IS CONSISTENT WITH DIABETES. RANDOM GLUCOSE >200 MG/DL WITH HYPERGLYCEMIC SYMPTOMS IS CONSISTENT WITH DIABETES. PER ADA GUIDELINES BUN 14 6 - 24 MG/DL 10/23/2024 12:04 AM T [facility] CREATININE S/P/B 0.99 0.55 - 1.02 MG/DL 10/23/2024 12:04 AM T [facility] CALCIUM S/P/B 9.5 8.4 - 10.5 MG/DL 10/23/2024 12:04 AM [facility] BILIRUBIN TOTAL S/P/B 0.2 0.2 - 1.0 MG/DL 10/23/2024 12:04 AM [facility] Comment: THIS ASSAY IS NOT RECOMMENDED FOR PATIENTS UNDERGOING TREATMENT WITH ELTROMBOPAG DUE TO THE POTENTIAL FOR FALSELY ELEVATED RESULTS. ALKALINE PHOSPHATASE S/P/B 121(H) 37 - 98 U/L 10/23/2024 12:04 AM T [facility] AST 15 15 - 37 U/L 10/23/2024 12:04 AM T [facility] ALT 40 14 - 59 U/L 10/23/2024 12:04 AM T [facility] TOTAL PROTEIN S/P/B 8.0 6.4 - 8.2 G/DL 10/23/2024 12:04 AM CDT [facility] ALBUMIN S/P/B 3.9 3.4 - 5.0 G/DL 10/23/2024 12:04 AM CDT [facility] ANION GAP 16.1(H) 5.0 - 15.0 MMOL/L 10/23/2024 12:04 AM CDT [facility] OSMOLALITY (CALC) 292 MOSM/KG 025 12:04 AM CDT [facility] Comment:REFERENCE RANGE NOT ESTABLISHED GFR ESTIMATE 78(L) >89 ML/MIN/1. 73 M2 10/23/2024 12:04 AM CDT [facility] GFR NOTES GFR REFERENCE S: 10/23/2024 12:04 AM T [facility] Comment: THE ESTIMATED GFR IS CALCULATED [...] m2 10/22/2024 11:1 5 PM CDT us Bhaskar Oneal MD LABORATORY Final Res ult [facility] [address] [place] [address], * HCG QUANT (SERUM)-CHORIONIC GONADOTROPIN (10/22/2024 11:15 PM CDT) HCG QUANTITATIVE <1 0.0 - 6.0 MIU/ML 10/23/2024 12:04 AM CDT [facility] Comment:NON- FEMALE 0-6 10/22/2024 11:1 5 PM CDT us Bhaskar Oneal MD LABORATORY Final Res ult [facility] [address] [place] [address], * (ABNORMAL) CBC W/DIFF AUTOMATED (10/22/2024 11:15 PM CDT) WBC 10.02 4.00 - 10.80 x10'3/uL 10/22/2024 11:33 PM CDT [facility] RBC 4.40 4.10 - 5.40 x10'6/uL 10/22/2024 11:33 PM CDT [facility] HGB 13.8 12.0 - 16.0 G/DL 10/22/2024 11:33 PM CDT [facility] HCT 40.3 36.0 - 47.0 % 10/22/2024 11:33 PM CDT [facility] MCV 91.6 78.0 - 100.0 FL 10/22/2024 11:33 PM CDT [facility] MCH 31.4(H) 27.0 - 31.0 PG 10/22/2024 11:33 PM CDT [facility] MCHC 34.2 33.0 - 36.0 G/DL 10/22/2024 11:33 PM CDT [facility] RDW 12.6 11.5 - 14.5 % 10/22/2024 11:33 PM CDT [facility] PLT 529(H) 150 - 350 x10'3/uL 10/22/2024 11:33 PM CDT [facility] MPV 9.6 7.4 - 10.4 FL 10/22/2024 11:33 PM CDT [facility] CBC COMMENT NORMAL REFERENCE RANGE NOT ESTABLISHED FOR THE PROPORTIONAL LEUKOCYTE DIFFERENTIAL. 10/22/2024 11:33 PM CDT [facility] NEUTROPHILS % 59.0 % 10/22/2024 11:33 PM CDT [facility] LYMPHOCYTES % 32.5 % 10/22/2024 11:33 PM CDT [facility] MONOCYTES % 6.0 % 10/22/2024 11:33 PM CDT [facility] EOSINOPHILS % 1.5 % 10/22/2024 11:33 PM CDT [facility] BASOPHILS % 0.4 % 10/22/2024 11:33 PM CDT [facility] IMMATURE GRANS % 0.6 % 10/23/19 11:33 PM CDT [facility] NRBC % 0.0 % 10/22/2024 11:33 PM CDT [facility] ABS. NEUTROPHILS 5.91 1.60 - 8.30 x10'3/uL 10/22/2024 11:33 PM CDT [facility] ABS. LYMPHOCYTES 3.26 0.80 - 4.70 x10'3/uL 10/22/2024 11:33 PM CDT [facility] ABS. MONOCYTES 0.60 0.00 - 1.50 x10'3/uL 10/22/2024 11:33 PM CDT [facility] ABS. EOSINOPHILS 0.15 0.00 - 0.40 x10'3/uL 10/22/2024 11:33 PM CDT [facility] ABS. BASOPHILS 0.04 0.00 - 0.20 x10'3/uL 10/22/2024 11:33 PM CDT [facility] ABS. IMMATURE GRANULOCYTES 0.06(H) 0.00 - 0.03 x10'3/uL 10/22/2024 11:33 PM CDT [facility] ABS. NUCLEATED RBC'S 0.00 0.00 - 0.01 x10'3/uL 10/22/2024 11:33 PM CDT [facility] 10/22/2024 11:1 5 PM CDT us Bhaskar Oneal MD LABORATORY Final Res ult Performing Organization Address City/[facility]/ZIP Co de Phone Number [facility] [address] [place] [phone], * MAGNESIUM (10/22/2024 11:15 PM CDT) MAGNESIUM 2.0 1.8 - 2.4 MG/DL 10/23/2024 12:04 AM CDT [facility] 10/22/2024 11:1 5 PM CDT us Bhaskar Oneal MD LABORATORY Final Res ult Performing Organization Address [facility]/ZIP Co de Phone Number [facility] [address] [place] [phone], * (ABNORMAL) SALICYLATE (10/22/2024 11:15 PM CDT) SALICYLATES 1.5(L) 2.8 - 20.0 MG/DL 10/23/2024 12:04 AM CDT [facility] 10/22/2024 11:1 5 PM CDT us Bhaskar Oneal MD LABORATORY Final Res ult Performing Organization Address [facility] Co de Phone Number [facility] [address] [place] [phone], * (ABNORMAL) ACETAMINOPHEN (10/22/2024 11:15 PM CDT) ACETAMINOPHEN S/P/B 0.0(L) 10.0 - 30.0 MCG/ML 10/23/2024 12:04 AM CDT [facility] 10/22/2024 11:1 5 PM CDT us Bhaskar Oneal MD LABORATORY Final Res ult Performing Organization Address City/[facility]/ZIP Co de Phone Number [facility] [address] [place] [phone], * ECG 12 lead (10/22/2024 11:08 PM CDT) 10/22/2024 11:0 8 PM CDT Narrative [facility] - 10/23/2024 8:27 AM CDT [address] 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1995 Requested By: BHASKAR ONEAL Order Number: [id number] Reading MD: Bhargav Paul Measurements Intervals [place] Rate: 109 P: 40 CT: 150 QRS: 15 QRSD: 89 T: 19 QT: 322 QTc: 434 Interpretive Statements SINUS TACHYCARDIA POSSIBLE LEFT ATRIAL ENLARGEMENT LOW QRS VOLTAGE IN PRECORDIAL LEADS POSSIBLE RIGHT VENTRICULAR CONDUCTION DELAY ABNORMAL RHYTHM ECG us Bhaskar Oneal MD ECG ORDERABLES Final Res ult [facility] * CORONAVIRUS (COVID-19) ANTIGEN (10/22/2024 10:54 PM CDT) Pathologist [facility] CORONAVIRUS ANTIGEN IA NEGATIVE NEGATIVE 10/22/2024 11:33 PM CDT [facility] Comment: NEGATIVE RESULTS DO NOT RULE [...] SPECIMEN TYPE NASAL 10/22/2024 11:04 PM CDT [facility] NASAL NASAL STRUCTURE / Unknown 10/22/2024 10:54 PM CDT Bhaskar Oneal MD MICROBIOLOGY - GENERAL OR DERABLES Final Result [facility] [place] [address], * (ABNORMAL) DRUG SCREEN RAPID (10/22/2024 10:54 PM CDT) [facility] CANNABINOIDS SCREEN (U) NEGATIVE NEGATIVE 10/22/2024 11:26 PM CDT [facility] PHENCYCLIDINE PCP (U) NEGATIVE NEGATIVE 10/22/2024 11:26 PM CDT [facility] COCAINE METABOLITES (U) NEGATIVE NEGATIVE 10/22/2024 11:26 PM CDT [facility] METHAMPHETAMINE SCREEN (U) POSITIVE(A) NEGATIVE 10/22/2024 11:26 PM CDT [facility] OPIATE SCREEN (U) NEGATIVE NEGATIVE 025 11:26 PM CDT [facility] AMPHETAMINE SCREEN (U) NEGATIVE NEGATIVE 10/22/2024 11:26 PM CDT [facility] BENZODIAZEPINES SCREEN (U) NEGATIVE NEGATIVE 10/22/2024 11:26 PM CDT [facility] TRICYCLIC ANTIDEPRESSANT SCREEN (U) NEGATIVE NEGATIVE 10/22/2024 11:26 PM CDT [facility] METHADONE (U) NEGATIVE NEGATIVE 10/22/2024 11:26 PM CDT [facility] BARBITURATES SCREEN (U) NEGATIVE NEGATIVE 10/22/2024 11:26 PM CDT [facility] OXYCODONE SCREEN (U) NEGATIVE NEGATIVE 10/22/2024 11:26 PM CDT [facility] URINE TOX COMMENT THIS TEST METHODOLOGY IS DESIGNED AND OFFERED A RAPID TURNAROUND, QUALITATIVE SCREENING PROCEDURE TO AID IN THE IMMEDIATE MEDICAL ASSESSMENT OF PATIENTS SUSPECTED OF SUBSTANCE ABUSE. 10/22/2024 11:04 PM CDT [facility] Comment: CLINICAL CONSIDERATION AND PROFESSIONAL JUDGMENT MUST BE APPLIED TO ANY DRUG OF ABUSE TEST RESULT, BOTH POSITIVE AND NEGATIVE. CONFIRMATORY QUANTITATIVE RESULTS ARE AVAILABLE THROUGH OUR REFERENCE LAB[facility]AT[facility]. URINE SPECIMEN / Unknown 10/22/2024 10:54 PM CDT us Bhaskar Oneal MD URINE ORDERABLES Final Re sult [facility] [address] [place] [address], * (ABNORMAL) URINALYSIS (10/22/2024 10:54 PM CDT) COLOR (U) YELLOW 10/22/2024 11:23 PM CDT [facility] TRANSPARENCY CLEAR 10/22/2024 11:23 PM CDT [facility] SPECIFIC GRAVITY (U) 1.030(H) 1.000 - 1.025 10/22/2024 11:23 PM CDT [facility] Comment:EQUAL TO OR GREATER THAN U PH 5.0 5.0 - 8.0 10/22/2024 11:23 PM CDT [facility] LEUKOCYTES (U) NEGATIVE NEGATIVE 10/22/2024 11:23 PM CDT [facility] NITRITES NEGATIVE NEGATIVE 10/22/2024 11:23 PM CDT [facility] PROTEIN RANDOM (U) 1+(A) NEGATIVE 10/22/2024 11:23 PM CDT [facility] GLUCOSE (U) NEGATIVE NEGATIVE 10/22/2024 11:23 PM CDT [facility] KETONES MG/DL (U) 1+(A) NEGATIVE 10/22/2024 11:23 PM CDT [facility] UROBILINOGEN 0.2 <1.0 EU/DL 10/22/2024 11:23 PM CDT [facility] BILIRUBIN (U) NEGATIVE NEGATIVE 10/22/2024 11:23 PM CDT [facility] BLOOD (U) TRACE(A) NEGATIVE 10/22/2024 11:23 PM CDT [facility] WBC/HPF 0-5 0 - 5 /HPF 10/22/2024 11:23 PM CDT [facility] RBC/HPF 0-5 0 - 5 /HPF 10/22/2024 11:23 PM CDT [facility] OTHER CASTS (U) HYALINE /LPF 11:23 PM CDT [facility] Comment:10-20 URINE SPECIMEN OBTAINED BY CLEAN CATCH PROCEDURE / Unknown 10/22/2024 10:54 PM CDT us Bhaskar Oneal MD URINE ORDERABLES Final Re sult [facility] [address] [place] [id number], from Last 3 Months Insurance [employer] Care 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
--- OUTSIDE RECORDS SUMMARY | 2024-12-22 12:45 | XMS_ITS | Encounter Summary ---
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 Legal Sex Female 7:07 PM CDT Gender Identity Not on file Sexual Orientation Not on file documented as of this encounter Plan of Treatment Not on file documented as of this encounter Visit Diagnoses Not on filedocumented in this encounter Additional Health Concerns Infection Onset Date Last Indicated Resolved Time COVID-19 Rule Out 05/25/2023 05/25/2023 05/25/2023 5:45 PM HAND ZIPPER TRIMMER COVID-19 Rule Out 03/02/2024 03/02/2024 03/02/2024 12:25 PM HAND ZIPPER TRIMMER COVID-19 Rule Out 10/22/2024 10/22/2024 10/22/2024 11:33 PM CDT documented as of this encounter Care Teams Hand Zipper Trimmer Relationship Specialty Start Date End Date Adams Ricks NP [address] [place] [phone] PCP - General Nurse Practitioner Family 06/26/22 documented as of this encounter
[2024-12-22 13:00] VITALS: BP 129/79; PULSE 72; RESP 17; O2SAT 94
--- NOTE | 2024-12-22 13:10 | ED.ANXIETY ---
HPI - Anxiety General Chief Complaint: Anxiety Stated Complaint: fainting Time Seen by Provider: 12/22/24 13:10 Source: patient, family and EMS Mode of arrival: EMS Limitations: no limitations History of Present Illness HPI narrative: this is a 29-year-old female with history of anxiety depression stopped her medicines approximately 3 days ago and EMS was called to the house because the patient was unresponsive and breathing during assessment the patient is alert oriented x4 with some no neurological deficits is anxious and states that the medicine that she is currently on makes her feel bad enough why she stopped it she became angry at her significant other for raising some questions. Otherwise there is no chest pain no shortness of breath no abdominal pain no dysuria no flank pain no fever chills nausea vomiting. complaint: anxiety Onset (ago): day(s) Severity: mild Related Data Home Medications ?Medication ?Instructions ?Recorded ?Confirmed ?Last Taken ?Type gabapentin 100 mg capsule 100 mg PO TID 07/25/23 03/14/24 02/28/24 History clonidine HCl 0.1 mg tablet 0.1 mg PO TID 02/16/24 03/14/24 02/28/24 History cephalexin 500 mg capsule 500 mg PO Q8H 03/08/24 03/14/24 Unknown History quetiapine 50 mg tablet 50 mg PO QHS 03/08/24 03/14/24 Unknown History Allergies Allergy/AdvReac Type Severity Reaction Status Date / Time morphine Allergy Intermediate Rash Verified 12/22/24 12:50 [place] Allergy Hives Verified 12/22/24 12:50 Review of Systems Review of Systems: All systems reviewed & are unremarkable except as noted in HPI and below PMFSH Past Medical History Medical History Anxiety Arthritis Unspecified examination Palpitations Other specified contraceptive management (02/24/17) Other chronic pain (02/24/17) Juvenile osteochondrosis of hip and pelvis Depression (02/24/17) Perthes disease lt hip Surgical History Surgical History H/O removal of cyst 02/29/24 Excision of 3.5 cm left chest wall cyst Dr. Bingham History of hip surgery History of hip replacement lt hip Family History Family History Father Family history of bipolar disorder Depression Grandparent Cancer Breast cancer Other Diabetes mellitus Social History Social History Smoking status: Former smoker Tobacco type: cigarettes Second hand tobacco smoke exposure: Yes Additional smoking assessment comments: Does not smoke Alcohol intake: current Drinks per week: 3 Substance use type: does not use Do You Feel Safe in your Home?: Yes Lack of Transportation: No Lack of Food: Never True Current Housing: I Have Housing Concerned About Future Housing: No Difficulty Paying Gas/Electric Bills: No Difficulty Paying for Meds: No Currently Unemployed: No Education: Associate Degree Difficulty w/ Childcare or Family Care: No Living arrangements: with family Gender identity (if verbalized by the patient): Female Spiritual care concerns: No Exam Const: General: healthy appearing Nutritional Appearance: well nourished Eyes: Conjunctivae: conjunctivae normal Pupils: Equal, round and reactive pupils present Neck: Neck: normal visual inspection Chest: Chest palpation & inspection: normal inspection of the chest Resp: Effort & Inspection: normal respiratory effort Auscultation: clear to auscultation bilaterally Cardio: Rate: regular rate Rhythm: regular rhythm GI: Auscultation: normal bowel sounds : General: Yes bladder normal to palpation Skin: General skin exam: normal color Rashes: no rashes Neuro: General: patient oriented x3 and moves all extremities Extrem: General: normal to inspection Psych: Mental Status: mental status grossly normal Affect: Anxious affect present Course Course Emergency Course: Patient with history of anxiety stopped her medication approximately 3 days ago currently doing well O were alert and oriented x4. Vital Signs Vital signs: Vital Signs Temperature 36.8 C 12/22/24 12:42 Pulse Rate 78 12/22/24 12:42 Respiratory Rate 14 12/22/24 12:42 Blood Pressure 129/86 12/22/24 12:42 Pulse Oximetry 98 12/22/24 12:42 Oxygen Delivery Room Air 12/22/24 12:42 Temperature 36.8 C 12/22/24 12:42 Pulse Rate 78 12/22/24 12:42 Respiratory Rate 14 12/22/24 12:42 Blood Pressure 129/86 12/22/24 12:42 Pulse Oximetry 98 12/22/24 12:42 Oxygen Delivery Room Air 12/22/24 12:42 Critical Care Time Critical Care Time Critical Care Time: No Discharge Plan Discharge Clinical Impression: Acute anxiety Patient Disposition: Home Condition: Stable Instructions: Antibiotic Form, Anxiety (ED) Additional Instructions: Advised take medication as prescribed and follow-up with Primary/psychiatrist within the next 3 to 5 days for further evaluation and treatment. Patient Language: Belizean Prescriptions: New alprazolam [Xanax] 0.5 mg tablet 0.5 mg PO BID PRN (Reason: anxiety) Qty: 20 0RF No Action gabapentin 100 mg capsule 100 mg PO TID meclizine 50 mg tablet 50 mg PO BID PRN (Reason: dizziness) Qty: 14 0RF quetiapine 50 mg tablet 50 mg PO QHS cephalexin 500 mg capsule 500 mg PO Q8H clonidine HCl 0.1 mg tablet 0.1 mg PO TID Follow-up/Referrals: UNKNOWN,DOCTOR [Primary Care Provider] Time of Disposition: 13:15
[2024-12-22 13:30] VITALS: BP 134/82; PULSE 73; RESP 17; O2SAT 97
--- OUTSIDE RECORDS SUMMARY | 2024-12-22 13:38 | XMS_ITS | Clinical Summary ---
Author Organization [facility] Address [address] [place] [address] Care Team Providers Care Gun Examiner Name Role Phone Adams Ricks NP Primary [...] CDT - 10/23/2024 6:45 AM CDT Emergency [facility] [address] [place] [address] [place] [address] Bhaskar Oneal MD Suicidal Ideation Discharge Disposition: Home or Self Care (Routine Discharge) 10/22/2024 Travel 10/12/2024 9:25 AM CDT - 10/12/2024 10:55 AM CDT [facility] [address] [place] [address] [place] [address] Adi Kirby MD Dizziness; Headache Discharge Disposition: [...] Sex Assigned at Female 04/26/2024 4:35 PM HEEL SCORER Legal Sex Female 7:07 PM CDT Gender [...] 0.048(H) <0.003 G/DL 10/23/2024 2:14 AM CDT [facility] 10/23/2024 1:50 AM CDT us Bhasakr Oneal MD LABORATORY Final Res ult Performing Organization Address City/[facility]/ZIP Co de Phone Number [facility] [address] [place] [address], [place] [phone] * TSH W/REFLEX (10/22/2024 11:15 PM CDT) TSH 3.441 0.358 - 3.740 uIU/ML 10/23/2024 12:04 AM CDT [facility] Comment: FREE T4 NOT INDICATED ASSAY PERFORMED BY CHEMILUMINESCENT IMMUNOASSAY METHODOLOGY USING SIEMENS DIMENSION REAGENT. PATIENT RESULTS DETERMINED BY ASSAYS FROM DIFFERENT MANUFACTURERS AND/OR BY DIFFERENT METHODS MAY NOT BE COMPARABLE. 10/22/2024 11:1 5 PM CDT us Bhaskar Oneal MD LABORATORY Final Res ult [facility] [address] [place] [address], [place] [phone] * (ABNORMAL) COMPREHENSIVE METABOLIC PANEL (10/22/2024 11:15 PM CDT) SODIUM S/P/B 140 136 - 145 MMOL/L 10/23/2024 12:04 AM T [facility] POTASSIUM S/P/B 4.0 3.5 - 5.1 MMOL/L 10/23/2024 12:04 AM T [facility] CHLORIDE S/P/B 103 98 - 107 MMOL/L 10/23/2024 12:04 AM T [facility] CO2 20.9(L) 21.0 - 32.0 MMOL/L 10/23/2024 12:04 AM T [facility] GLUCOSE 123(H) 70 - 99 MG/DL 10/23/2024 12:04 AM T [facility] Comment: FASTING GLUCOSE 100 TO 125 MG/DL IS CONSISTENT WITH IMPAIRED FASTING GLUCOSE. FASTING GLUCOSE >125 MG/DL IS CONSISTENT WITH DIABETES. RANDOM GLUCOSE >200 MG/DL WITH HYPERGLYCEMIC SYMPTOMS IS CONSISTENT WITH DIABETES. PER ADA GUIDELINES BUN 14 6 - 24 MG/DL 10/23/2024 12:04 AM T [facility] CREATININE S/P/B 0.99 0.55 - 1.02 MG/DL 10/23/2024 12:04 AM T [facility] CALCIUM S/P/B 9.5 8.4 - 10.5 MG/DL 10/23/2024 12:04 AM [facility] BILIRUBIN TOTAL S/P/B 0.2 0.2 - 1.0 MG/DL 10/23/2024 12:04 AM [facility] Comment: THIS ASSAY IS NOT RECOMMENDED FOR PATIENTS UNDERGOING TREATMENT WITH ELTROMBOPAG DUE TO THE POTENTIAL FOR FALSELY ELEVATED RESULTS. ALKALINE PHOSPHATASE S/P/B 121(H) 37 - 98 U/L 10/23/2024 12:04 AM T [facility] AST 15 15 - 37 U/L 10/23/2024 12:04 AM T [facility] ALT 40 14 - 59 U/L 10/23/2024 12:04 AM T [facility] TOTAL PROTEIN S/P/B 8.0 6.4 - 8.2 G/DL 10/23/2024 12:04 AM CDT [facility] ALBUMIN S/P/B 3.9 3.4 - 5.0 G/DL 10/23/2024 12:04 AM CDT [facility] ANION GAP 16.1(H) 5.0 - 15.0 MMOL/L 10/23/2024 12:04 AM CDT [facility] OSMOLALITY (CALC) 292 MOSM/KG 025 12:04 AM CDT [facility] Comment:REFERENCE RANGE NOT ESTABLISHED GFR ESTIMATE 78(L) >89 ML/MIN/1. 73 M2 10/23/2024 12:04 AM CDT [facility] GFR NOTES GFR REFERENCE S: 10/23/2024 12:04 AM T [facility] Comment: THE ESTIMATED GFR [...] Bhaskar Oneal MD LABORATORY Final Res ult [facility] [address] [place] [address], * HCG QUANT (SERUM)-CHORIONIC GONADOTROPIN (10/22/2024 11:15 PM CDT) HCG QUANTITATIVE <1 0.0 - 6.0 MIU/ML 10/23/2024 12:04 AM CDT [facility] Comment:NON- FEMALE 0-6 10/22/2024 11:1 5 PM CDT us Bhaskar Oneal MD LABORATORY Final Res ult [facility] [address] [place] [address], * (ABNORMAL) CBC W/DIFF AUTOMATED (10/22/2024 11:15 PM CDT) WBC 10.02 4.00 - 10.80 x10'3/uL 10/22/2024 11:33 PM CDT [facility] RBC 4.40 4.10 - 5.40 x10'6/uL 10/22/2024 11:33 PM CDT [facility] HGB 13.8 12.0 - 16.0 G/DL 10/22/2024 11:33 PM CDT [facility] HCT 40.3 36.0 - 47.0 % 10/22/2024 11:33 PM CDT [facility] MCV 91.6 78.0 - 100.0 FL 10/22/2024 11:33 PM CDT [facility] MCH 31.4(H) 27.0 - 31.0 PG 10/22/2024 11:33 PM CDT [facility] MCHC 34.2 33.0 - 36.0 G/DL 10/22/2024 11:33 PM CDT [facility] RDW 12.6 11.5 - 14.5 % 10/22/2024 11:33 PM CDT [facility] PLT 529(H) 150 - 350 x10'3/uL 10/22/2024 11:33 PM CDT [facility] MPV 9.6 7.4 - 10.4 FL 10/22/2024 11:33 PM CDT [facility] CBC COMMENT NORMAL REFERENCE RANGE NOT ESTABLISHED FOR THE PROPORTIONAL LEUKOCYTE DIFFERENTIAL. 10/22/2024 11:33 PM CDT [facility] NEUTROPHILS % 59.0 % 10/22/2024 11:33 PM CDT [facility] LYMPHOCYTES % 32.5 % 10/22/2024 11:33 PM CDT [facility] MONOCYTES % 6.0 % 10/22/2024 11:33 PM CDT [facility] EOSINOPHILS % 1.5 % 10/22/2024 11:33 PM CDT [facility] BASOPHILS % 0.4 % 10/22/2024 11:33 PM CDT [facility] IMMATURE GRANS % 0.6 % 10/23/19 11:33 PM CDT [facility] NRBC % 0.0 % 10/22/2024 11:33 PM CDT [facility] ABS. NEUTROPHILS 5.91 1.60 - 8.30 x10'3/uL 10/22/2024 11:33 PM CDT [facility] ABS. LYMPHOCYTES 3.26 0.80 - 4.70 x10'3/uL 10/22/2024 11:33 PM CDT [facility] ABS. MONOCYTES 0.60 0.00 - 1.50 x10'3/uL 10/22/2024 11:33 PM CDT [facility] ABS. EOSINOPHILS 0.15 0.00 - 0.40 x10'3/uL 10/22/2024 11:33 PM CDT [facility] ABS. BASOPHILS 0.04 0.00 - 0.20 x10'3/uL 10/22/2024 11:33 PM CDT [facility] ABS. IMMATURE GRANULOCYTES 0.06(H) 0.00 - 0.03 x10'3/uL 10/22/2024 11:33 PM CDT [facility] ABS. NUCLEATED RBC'S 0.00 0.00 - 0.01 x10'3/uL 10/22/2024 11:33 PM CDT [facility] 10/22/2024 11:1 5 PM CDT us Bhaskar Oneal MD LABORATORY Final Res ult Performing Organization Address City/[facility]/ZIP Co de Phone Number [facility] [address] [place] [phone], * MAGNESIUM (10/22/2024 11:15 PM CDT) MAGNESIUM 2.0 1.8 - 2.4 MG/DL 10/23/2024 12:04 AM CDT [facility] 10/22/2024 11:1 5 PM CDT us Bhaskar Onela MD LABORATORY Final Res ult Performing Organization Address [facility]/ZIP Co de Phone Number [facility] [address] [place] [phone], * (ABNORMAL) SALICYLATE (10/22/2024 11:15 PM CDT) SALICYLATES 1.5(L) 2.8 - 20.0 MG/DL 10/23/2024 12:04 AM CDT [facility] 10/22/2024 11:1 5 PM CDT us Bhaskar Oneal MD LABORATORY Final Res ult Performing Organization Address [facility] Co de Phone Number [facility] [address] [place] [phone], * (ABNORMAL) ACETAMINOPHEN (10/22/2024 11:15 PM CDT) ACETAMINOPHEN S/P/B 0.0(L) 10.0 - 30.0 MCG/ML 10/23/2024 12:04 AM CDT [facility] 10/22/2024 11:1 5 PM CDT us Bhaskar Oneal MD LABORATORY Final Res ult Performing Organization Address City/[facility]/ZIP Co de Phone Number [facility] [address] [place] [phone], * ECG 12 lead (10/22/2024 11:08 PM CDT) 10/22/2024 11:0 8 PM CDT Narrative [facility] - 10/23/2024 8:27 AM CDT [address] [place] [address] Test Date: 2024-10-22 Pat Name: CLAUDIA LOBO Department: 3 Room: EXAM 202 Gender: Female Closing Specialist: : 1995 Requested By: BHASKAR ONEAL Order Number: [id number] Reading MD: Bhargav Paul Measurements Intervals [place] Rate: 109 P: 40 NM: 150 QRS: 15 QRSD: 89 T: 19 QT: 322 QTc: 434 Interpretive Statements SINUS TACHYCARDIA POSSIBLE LEFT ATRIAL ENLARGEMENT LOW QRS VOLTAGE IN PRECORDIAL LEADS POSSIBLE RIGHT VENTRICULAR CONDUCTION DELAY ABNORMAL RHYTHM ECG Procedure Note Bhargav Paul MD - 10/23/[address] [place] [address] Test Date: 2024-10-22 Pat Name: CLAUDIA CRAIGLAURIE Department: 3 Room: EXAM 202 Gender: Female Closing Specialist: : 1995 Requested By: BHASKAR ONEAL Order Number: [id number] Reading MD: Bhargav Paul Measurements Intervals [place] Rate: 109 P: 40 NM: 150 QRS: 15 QRSD: 89 T: 19 QT: 322 QTc: 434 Interpretive Statements SINUS TACHYCARDIA POSSIBLE LEFT ATRIAL ENLARGEMENT LOW QRS VOLTAGE IN PRECORDIAL LEADS POSSIBLE RIGHT VENTRICULAR CONDUCTION DELAY ABNORMAL RHYTHM ECG us Bhaskar Oneal MD ECG ORDERABLES Final Res ult [facility] * CORONAVIRUS (COVID-19) ANTIGEN (10/22/2024 10:54 PM CDT) Pathologist [facility] CORONAVIRUS ANTIGEN IA NEGATIVE NEGATIVE 10/22/2024 11:33 PM CDT [facility] Comment: NEGATIVE RESULTS DO [...] SPECIMEN TYPE NASAL 10/22/2024 11:04 PM CDT [facility] NASAL NASAL STRUCTURE / Unknown 10/22/2024 10:54 PM CDT Bhaskar Oneal MD MICROBIOLOGY - GENERAL OR DERABLES Final Result [facility] [place] [address], * (ABNORMAL) DRUG SCREEN RAPID (10/22/2024 10:54 PM CDT) [facility] CANNABINOIDS SCREEN (U) NEGATIVE NEGATIVE 10/22/2024 11:26 PM CDT [facility] PHENCYCLIDINE PCP (U) NEGATIVE NEGATIVE 10/22/2024 11:26 PM CDT [facility] COCAINE METABOLITES (U) NEGATIVE NEGATIVE 10/22/2024 11:26 PM CDT [facility] METHAMPHETAMINE SCREEN (U) POSITIVE(A) NEGATIVE 10/22/2024 11:26 PM CDT [facility] OPIATE SCREEN (U) NEGATIVE NEGATIVE 025 11:26 PM CDT [facility] AMPHETAMINE SCREEN (U) NEGATIVE NEGATIVE 10/22/2024 11:26 PM CDT [facility] BENZODIAZEPINES SCREEN (U) NEGATIVE NEGATIVE 10/22/2024 11:26 PM CDT [facility] TRICYCLIC ANTIDEPRESSANT SCREEN (U) NEGATIVE NEGATIVE 10/22/2024 11:26 PM CDT [facility] METHADONE (U) NEGATIVE NEGATIVE 10/22/2024 11:26 PM CDT [facility] BARBITURATES SCREEN (U) NEGATIVE NEGATIVE 10/22/2024 11:26 PM CDT [facility] OXYCODONE SCREEN (U) NEGATIVE NEGATIVE 10/22/2024 11:26 PM CDT [facility] URINE TOX COMMENT THIS TEST METHODOLOGY IS DESIGNED AND OFFERED A RAPID TURNAROUND, QUALITATIVE SCREENING PROCEDURE TO AID IN THE IMMEDIATE MEDICAL ASSESSMENT OF PATIENTS SUSPECTED OF SUBSTANCE ABUSE. 10/22/2024 11:04 PM CDT [facility] Comment: CLINICAL CONSIDERATION AND PROFESSIONAL JUDGMENT MUST BE APPLIED TO ANY DRUG OF ABUSE TEST RESULT, BOTH POSITIVE AND NEGATIVE. CONFIRMATORY QUANTITATIVE RESULTS ARE AVAILABLE THROUGH OUR REFERENCE [facility]. URINE SPECIMEN / Unknown 10/22/2024 10:54 PM CDT us Bhaskar Oneal MD URINE ORDERABLES Final Re sult [facility] [address] [place] [address], * (ABNORMAL) URINALYSIS (10/22/2024 10:54 PM CDT) COLOR (U) YELLOW 10/22/2024 11:23 PM CDT [facility] TRANSPARENCY CLEAR 10/22/2024 11:23 PM CDT [facility] SPECIFIC GRAVITY (U) 1.030(H) 1.000 - 1.025 10/22/2024 11:23 PM CDT [facility] Comment:EQUAL TO OR GREATER THAN U PH 5.0 5.0 - 8.0 10/22/2024 11:23 PM CDT [facility] LEUKOCYTES (U) NEGATIVE NEGATIVE 10/22/2024 11:23 PM CDT [facility] NITRITES NEGATIVE NEGATIVE 10/22/2024 11:23 PM CDT [facility] PROTEIN RANDOM (U) 1+(A) NEGATIVE 10/22/2024 11:23 PM CDT [facility] GLUCOSE (U) NEGATIVE NEGATIVE 10/22/2024 11:23 PM CDT [facility] KETONES MG/DL (U) 1+(A) NEGATIVE 10/22/2024 11:23 PM CDT [facility] UROBILINOGEN 0.2 <1.0 EU/DL 10/22/2024 11:23 PM CDT [facility] BILIRUBIN (U) NEGATIVE NEGATIVE 10/22/2024 11:23 PM CDT [facility] BLOOD (U) TRACE(A) NEGATIVE 10/22/2024 11:23 PM CDT [facility] WBC/HPF 0-5 0 - 5 /HPF 10/22/2024 11:23 PM CDT [facility] RBC/HPF 0-5 0 - 5 /HPF 10/22/2024 11:23 PM CDT [facility] OTHER CASTS (U) HYALINE /LPF 11:23 PM CDT [facility] Comment:10-20 URINE SPECIMEN OBTAINED BY CLEAN CATCH PROCEDURE / Unknown 10/22/2024 10:54 PM CDT us Bhaskar Oneal MD URINE ORDERABLES Final Re sult [facility] [address] [place] [phone], from Last 3 Months Insurance [employer] Care Teams Gun Examiner Relationship Specialty Start Date End Date Adams Ricks NP [address] [place] [phone] PCP - General Nurse Practitioner Family 06/26/22
--- OUTSIDE RECORDS SUMMARY | 2024-12-22 13:38 | XMS_ITS | Encounter Summary ---
Author Organization [facility] Address [facility] [place] [address] Care Team Providers Care Nurse Extern Name Role Phone Héctor Rodriguez MD Primary Care Provider Unavailable Adams Ricks NP Primary Care Provi shaheen Encounter Details Date Type Department Care Team (Late st Contact Info) Description 02/07/2017 [place] [address] Héctor Rodriguez MD Social History Tobacco Use Types Packs/Day Years Used Date Smoking Tobacco: Never Assessed Comments Unknown Sex and Gender Information Value Date Recorded Sex Assigned at Female 04/26/2024 4:35 PM NEGATIVE STRIPPER Legal Sex Female 7:07 PM CDT Gender Identity Not on file Sexual Orientation Not on file documented as of this encounter Plan of Treatment Not on file documented as of this encounter Visit Diagnoses Not on filedocumented in this encounter Additional Health Concerns Infection Onset Date Last Indicated Resolved Time COVID-19 Rule Out 05/25/2023 05/25/2023 05/25/2023 5:45 PM NEGATIVE STRIPPER COVID-19 Rule Out 03/02/2024 03/02/2024 03/02/2024 12:25 PM NEGATIVE STRIPPER COVID-19 Rule Out 10/22/2024 10/22/2024 10/22/2024 11:33 PM CDT documented as of this encounter Care Teams Nurse Extern Relationship Specialty Start Date End Date Héctor Rodriguez MD PCP - General 02/27/14 06/17/17 Adams Ricks NP [address] [place] [phone] PCP - General Nurse Practitioner Family 06/26/22 documented as of this encounter
--- OUTSIDE RECORDS SUMMARY | 2024-12-22 13:38 | XMS_ITS | Encounter Summary ---
Author Organization [facility] Address [facility] [place] [address] Care Team Providers Care Movie Editor Name Role Phone Adams Ricks OPHTHALMIC AIDE Primary Care Provi shaheen Encounter Details Date Type Department Care Team (Late st Contact Info) Description 09/11/2018 Abstract [facility] [address] [place] [address] , Generic Conversion, Social History Tobacco Use Types Packs/Day Years Used Date Smoking Tobacco: Never Assessed Comments Unknown Sex and Gender Information Value Date Recorded Sex Assigned at Female 04/26/2024 4:35 PM SENIOR ELECTRICAL PROJECT MANAGER Legal Sex Female 7:07 PM CDT Gender Identity Not on file Sexual Orientation Not on file documented as of this encounter Plan of Treatment Not on file documented as of this encounter Visit Diagnoses Not on filedocumented in this encounter Additional Health Concerns Infection Onset Date Last Indicated Resolved Time COVID-19 Rule Out 05/25/2023 05/25/2023 05/25/2023 5:45 PM SENIOR ELECTRICAL PROJECT MANAGER COVID-19 Rule Out 03/02/2024 03/02/2024 03/02/2024 12:25 PM SENIOR ELECTRICAL PROJECT MANAGER COVID-19 Rule Out 10/22/2024 10/22/2024 10/22/2024 11:33 PM CDT documented as of this encounter Care Teams Movie Editor Relationship Specialty Start Date End Date Adams Ricks NP [address] [place] [phone] PCP - General Nurse Practitioner Family 06/26/22 documented as of this encounter
--- OUTSIDE RECORDS SUMMARY | 2024-12-22 13:38 | XMS_ITS | Clinical Summary ---
Author Organization [facility] Member Savings Program Address [address] [facility] [address] Care Team Providers Care Manager Commission Name Role Phone JenniferAdams shea Shar MANUEL-FLANGE MACHINE OPERATOR Primary Care Provide r Source Comments [facility] Member Savings Program,non-owned Affiliates and Associated Physician Practices is amultiple site organization consisting of ambulatory clinics and hospital sitesin [place], [place], [place] and [place]. This disclosure is being madepursuant to the Care Everywhere program and may not contain all information available regarding this patient. Last updated 17.[facility] Member Savings Program Allergies Active Allergy Reactions Criticality Noted Date [...] Active vitamin D, ergocalciferol, (Drisdol) 1.25 MG (00881 UT) capsule Take 1 (one) capsule by [...] on file Legal Sex Female 5:41 AM THRILL PERFORMER Gender Identity Not on file Sexual Orientation [...] this topic Medical Devices Implanted Type Area Modeling Director Device Identifier Shelf Expiration Date Model / Serial / Lot Shell Actb 48mm Hip 3 Screw Hl Clstr Implanted:Qty: 1 on 07/08/2024 by Baltazar Vigil DO at [facility] Right: Hip [employer] 03/10/2029 702-04-48D / / [id number] Impl Hip Stm 99mm Nk 36mm Insg 2 Hi Stm Implanted:Qty: 1 on 07/08/2024 by Baltazar Vigil DO at [facility] Right: Hip [employer] 10/11/2028 [id number] / / [id number] Liner Actb Mdm D 38mm Cocr Hip 22.2mm Implanted:Qty: 1 on 07/08/2024 by Baltazar Vigil DO at [facility] Right: Hip [employer] 05/23/2029 [id number] / / [id number] Head Fem +0mm Ofst Tpr 28mm Hip Blx D Implanted:Qty: 1 on 07/08/2024 by Baltazar Vigil DO at [facility] Right: Hip [employer] 12/16/2028 [id number] / / [id number] Mdm X3 Insert For Mdm Liner, 38d Implanted:Qty: 1 on 07/08/2024 by Baltazar Vigil DO at [facility] Right: Hip [employer] 02/06/2029 [id number] / / [id number] Insurance SELF PAY NO INSURANCE Member Subscriber Plan / Payer (Ef fective for All Dates) Name:Claudia Lobo Member ID:Not on file Relation to Subscriber:Self Name:CLAUDIA LOBO Subscriber ID:Not on file Payer ID:Not on file Group ID:Not on file Type:Self Pay Address: [facility] Advance Directives * Full Code (Latest Code Status on File) Date Activated Date Inactivated Comments 07/08/2024 3:47 PM 07/11/2024 4:43 PM Care Teams Manager Commission Relationship Specialty Start Date End Date Adams Ricks, URBAN SOCIOLOGIST-FLANGE MACHINE OPERATOR [address] [place] [phone] PCP - General Internal Medicine 07/04/24
[2024-12-22 13:39] VITALS: BP 134/82; PULSE 71; RESP 17; O2SAT 97
== END 2024-12-22 13:39 | disposition home or self-care (01) ==
LOC: CHSED 13:35
PROVIDERS: Emergency Provider Emergency Medicine; PCP Family Medicine
DX: F41.9 Anxiety disorder, unspecified (principal); Z87.891 Personal history of nicotine dependence
CPT/HCPCS: 99283

== ENCOUNTER 2025-03-24 18:56 | Emergency (ER) | payer OTHER, SELFPAY ==
[2025-03-24] VITALS (14 sets, daily range): BP systolic 110–130; BP diastolic 60–79; PULSE 85–99; RESP 16–17; TEMP 36.2–36.6; O2SAT 96–100
--- OUTSIDE RECORDS SUMMARY | 2025-03-24 18:59 | XMS_ITS | Encounter Summary ---
Author Organization [facility] Address [address] [place] [address] Care Team Providers Care Career Services Representative Name Role Phone Adams Ricks INSURANCE SALES ASSISTANT Primary Care Provi shaheen Encounter Details Date Type Department Care Team (Late st Contact Info) Description 09/11/2018 Abstract [facility] [address] [place] [address] , Generic Conversion, Social History Tobacco Use Types Packs/Day Years Used Date Smoking Tobacco: Never Assessed Comments Unknown Sex and Gender Information Value Date Recorded Sex Assigned at Female 04/26/2024 4:35 PM PACK OPERATOR Legal Sex Female 7:07 PM CDT Gender Identity Not on file Sexual Orientation Not on file documented as of this encounter Plan of Treatment Not on file documented as of this encounter Visit Diagnoses Not on filedocumented in this encounter Additional Health Concerns Infection Onset Date Last Indicated Resolved Time COVID-19 Rule Out 05/25/2023 05/25/2023 05/25/2023 5:45 PM PACK OPERATOR COVID-19 Rule Out 03/02/2024 03/02/2024 03/02/2024 12:25 PM PACK OPERATOR COVID-19 Rule Out 10/22/2024 10/22/2024 10/22/2024 11:33 PM CDT documented as of this encounter Care Teams Career Services Representative Relationship Specialty Start Date End Date Adams Ricks NP [address] [place] [phone] PCP - General Nurse Practitioner Family 06/26/22 documented as of this encounter
--- OUTSIDE RECORDS SUMMARY | 2025-03-24 18:59 | XMS_ITS | Clinical Summary ---
Author Organization [facility] Address [address] [place] [address] Care Team Providers Care Head Of Digital Name Role Phone No, Pcp CONTENT STRATEGY LEAD Primary Care Provider Unavailabl e Social History Tobacco Use Types Packs/Day Years Used Date Smoking Tobacco: Never Assessed Comments Unknown Sex and Gender Information Value Date Recorded Sex Assigned at Not on file Legal Sex Female 10:28 AM EDT Gender Identity Not on file Sexual Orientation Not on file Plan of Treatment Not on file Medical Devices Not on file Care Teams Head Of Digital Relationship Specialty Start Date End Date No, Pcp, CONTENT STRATEGY LEAD N/A Do not use PCP - General Family Medicine 03/09/20
--- OUTSIDE RECORDS SUMMARY | 2025-03-24 18:59 | XMS_ITS | Clinical Summary ---
Author Organization [facility] Address [address] [place] [address] Care Team Providers Care Workcell Operator Name Role Phone JenniferAdams shea Shar MANUEL-ACID CONDITIONER Primary Care Provide r Source Comments [facility],non-owned Affiliates and Associated Physician Practices is amultiple site organization consisting of ambulatory clinics and hospital sitesin [place], [place], [place]. This disclosure is being madepursuant to the Care Everywhere program and may not contain all information available regarding this patient. Last updated 17.[facility] Allergies Active Allergy Reactions Criticality Noted Date [...] Active vitamin D, ergocalciferol, (Drisdol) 1.25 MG (00945 UT) capsule Take 1 (one) capsule by [...] on file Legal Sex Female 5:41 AM WIND TURBINE TECHNICIAN Gender Identity Not on file Sexual [...] DEPRESSION SCREENING 04/06/2024 COVID-19 VACCINE (1 - 2024-2 6 season) 2024 INFLUENZA VACCINE (#1) 2024 ZOSTER [...] this topic Medical Devices Implanted Type Area Long Wall Mining Machine Helper Device Identifier Shelf Expiration Date Model / Serial / Lot Shell Actb 48mm Hip 3 Screw Hl Clstr Implanted:Qty: 1 on 07/08/2024 by Baltazar Vigil DO at [facility] Right: Hip [employer] 03/10/2029 [id number] / / [id number] Impl Hip Stm 99mm Nk 36mm Insg 2 Hi Stm Implanted:Qty: 1 on 07/08/2024 by Baltazar Vigil DO at [facility] Right: Hip [employer] 10/11/2028 [id number] / / [id number] Liner Actb Mdm D 38mm Cocr Hip 22.2mm Implanted:Qty: 1 on 07/08/2024 by Baltazar Vigil DO at [facility] Right: Hip [employer] 05/23/2029 [id number] / / [id number] Head Fem +0mm Ofst Tpr 28mm Hip Blx D Implanted:Qty: 1 on 07/08/2024 by Baltazar Vigil DO at [facility] Right: Hip [employer] 12/16/2028 [id number] / / [id number] Mdm X3 Insert For Mdm Liner, 38d Implanted:Qty: 1 on 07/08/2024 by Baltazar Vigil DO at [facility] Right: Hip [employer] 02/06/2029 [id number] / / [id number] Insurance SELF PAY NO INSURANCE Member Subscriber Plan / Payer (Ef fective for All Dates) Name:Claudia Lobo Member ID:Not on file Relation to Subscriber:Self Name:CLAUDIA LOBO Subscriber ID:Not on file Payer ID:Not on file Group ID:Not on file Type:Self Pay Address: [facility] Advance Directives * Full Code (Latest Code Status on File) Date Activated Date Inactivated Comments 07/08/2024 3:47 PM 07/11/2024 4:43 PM Care Teams Workcell Operator Relationship Specialty Start Date End Date Adams Ricks, PREFORMER IMPREGNATED FABRICS-ACID CONDITIONER [address] [place] [phone] PCP - General Internal Medicine 07/04/24
--- OUTSIDE RECORDS SUMMARY | 2025-03-24 18:59 | XMS_ITS | Encounter Summary ---
Author Organization [facility] Address [address] [place] [address] Care Team Providers Care Supervisor Frame Sample And Pattern Name Role Phone Héctor Rodriguez MD Primary Care Provider Unavailable Adams Ricks NP Primary Care Provi shaheen Encounter Details Date Type Department Care Team (Late st Contact Info) Description 02/07/2017 Abstract [place] [address] Héctor Rodriguez MD Social History Tobacco Use Types Packs/Day Years Used Date Smoking Tobacco: Never Assessed Comments Unknown Sex and Gender Information Value Date Recorded Sex Assigned at Female 04/26/2024 4:35 PM SUPERVISOR BRIDGES AND BUILDINGS Legal Sex Female 7:07 PM CDT Gender Identity Not on file Sexual Orientation Not on file documented as of this encounter Plan of Treatment Not on file documented as of this encounter Visit Diagnoses Not on filedocumented in this encounter Additional Health Concerns Infection Onset Date Last Indicated Resolved Time COVID-19 Rule Out 05/25/2023 05/25/2023 05/25/2023 5:45 PM SUPERVISOR [employer]ILD[employer] COVID-19 Rule Out 03/02/2024 03/02/2024 03/02/2024 12:25 PM SUPERVISOR [employer]ILDINGS COVID-19 Rule Out 10/22/2024 10/22/2024 10/22/2024 11:33 PM CDT documented as of this encounter Care Teams Supervisor Frame Sample And Pattern Relationship Specialty Start Date End Date Héctor Rodriguez MD PCP - General 02/27/14 06/17/17 Adams Ricks NP [address] [place] [phone] PCP - General Nurse Practitioner Family 06/26/22 documented as of this encounter
--- OUTSIDE RECORDS SUMMARY | 2025-03-24 18:59 | XMS_ITS | Clinical Summary ---
Author Organization [facility] Address [address] [place] [address] Care Team Providers Care Heliarc Welder Name Role Phone Adams Ricks NP Primary [...] History of total hip arthroplasty, left 06/27/19 Family History Relation Status Comments Brother Alive [...] Sex Assigned at Female 04/26/2024 4:35 PM YARD LABOR SUPERVISOR Legal Sex Female 7:07 PM CDT [...] HPV 2023 COVID-19 Vaccine ( season) 2024 Influenza Adult (#1) 2025 01/01/2022, 04/06/2020, 01/15/2018, Additional history exists DTaP, Tdap and Td Vaccines (8 - Td or Tdap) 01/11/2025 01/11/2015, 01/12/2009, 08/21/1998, Additional history exists Hepatitis B Vaccines Completed 02/21/1994, 1993, 1993 Meningococcal Vaccine Aged Out 01/12/2009 No noel lidya eligible based on patient's age to complete this topic Hepatitis A Vaccines Aged Out No long er eligible based on patient's age to complete [...] patient's age to complete this topic Insurance [facility] Care Teams Heliarc Welder Relationship Specialty Start Date End Date Adams Ricks NP [address] [place] [phone] PCP - General Nurse Practitioner Family 06/26/22
--- NOTE | 2025-03-24 19:03 | ED_ITS ---
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 She had been doing really well for 3 months but recently went through a break up, lost her job and is alone at [place]. She took eight 5mg oxycodone and drank 8 beers in the last hour or so. She was alert and oriented for EMS. Related Data Home Medications ?Medication ?Instructions ?Recorded ?Confirmed ?Last Taken ?Type gabapentin 100 mg capsule 100 mg PO TID 07/25/2303/1402/28/24 History clonidine HCl 0.1 mg tablet 0.1 mg PO TID 02/16/2412/2802/28/24 History cephalexin 500 mg capsule 500 mg PO Q8H 03/08/2403/14 Unknown History quetiapine 50 mg tablet 50 mg PO QHS 03/08/24 Unknown History Allergies Allergy/AdvReac Type Severity Reaction Status Date / Time morphine Allergy Intermediate Rash Verified 03/24/25 19:13 [place] Allergy Hives Verified 03/24/25 19:13 Review of Systems 2 Review of Systems: All systems reviewed & are unremarkable except as noted in HPI and below PMFSH Past Medical History Medical History Anxiety Arthritis Unspecified examination Palpitations Other specified contraceptive management (02/24/17) Other chronic pain (02/24/17) Juvenile osteochondrosis of hip and pelvis Depression (02/24/17) Perthes disease lt hip Surgical History Surgical History H/O removal of cyst 02/29/24 Excision of 3.5 cm left chest wall cyst Dr. Bingham History of hip surgery History of hip replacement lt hip Family History Family History Father Family history of bipolar disorder Depression Grandparent Cancer Breast cancer Other Diabetes mellitus Social History Social History Smoking status: Former smoker Tobacco type: cigarettes Second hand tobacco smoke exposure: Yes Additional smoking assessment comments: Does not smoke Alcohol intake: current Drinks per week: 3 Substance use type: does not use Lack of Transportation: No Lack of Food: Never True Current Housing: I Have Housing Concerned About Future Housing: No Difficulty Paying Gas/Electric Bills: No Difficulty Paying for Meds: No Currently Unemployed: No Education: Associate Degree Difficulty w/ Childcare or Family Care: No Living arrangements: with family Gender identity (if verbalized by the patient): Female Spiritual care concerns: No Exam 2 Const: General: cooperative, healthy appearing, comfortable, no acute distress, well developed, alert, awake and Physically active O rientation/consciousness: oriented to person, oriented to place and oriented to time HENMT: Head: normal to inspection, normocephalic and atraumatic Ears: h earing grossly normal bilaterally and external ears normal Face/Nose/Sinus: N ormal external nose present Eyes: General: appearance normal, both eyes and all related structures P eriorbital: periorbital findings normal Sclera: sclerae normal Pupils: E qual, round and reactive pupils present Neck: Neck: normal visual inspection Chest: Chest palpation & inspection: normal inspection of the chest Resp: Effort & Inspection: normal respiratory effort, able to speak in complete sentences and no respiratory distress Cardio: Jugular venous distension: no JVD Skin: General skin exam: normal color and no rashes or lesions noted Neuro: General: oriented to person, oriented to place and oriented to time Cranial nerves: Yes Equal, round and reactive pupils present Extrem: General: normal to inspection Psych: Mental Status: mental status grossly normal Affect: Sad affect present Attitude: cooperative Course Course Emergency Course: She was placed on the monitor and labs were ordered. EKG showed NSR with a rate of 87 Labs were largely unremarkable. She was medically cleared and abigail desai was contacted. After evaluation by Abigail desai she was determined to be safe to go home. They stated that she had a temporary lapse in judgement and they had her sign a safety contract. They will follow up with her tomorrow. MDM Lab Data 03/24/25 19:47 03/24/25 19:47 Labs: Lab Results 12/19/25 12/19/25 Range/Units 19:23 19:47 WBC 10.1 (4.8-10.8) K/mm3 RBC 4.35 (4.20-5.40) M/mm3 Hgb 13.5 (12.0-15.0) g/dL Hct 40.0 (35.0-49.0) % MCV 92.0 (78.0-102.0) fL MCH 31.0 (27.0-31.0) pg MCHC 33.8 (32-36) g/dL RDW 12.7 (11.6-14.4) % Plt Count 461 H (150-420) K/mm3 MPV 9.2 (9.2-11.8) fl Immature Gran % (Auto) 0.3 H (0.0-0.0) % Neut % (Auto) 62.2 (50.0-70.0) % Lymph % (Auto) 29.3 (18.0-42.0) % [place] % (Auto) 6.6 (2.0-11.0) % Eos % (Auto) 1.3 (1.0-6.0) % Baso % (Auto) 0.3 (0.0-1.0) % Lymph # (Auto) 2.95 (1.10-4.50) K/mm3 [place] # (Auto) 0.66 (0.10-0.90) K/mm3 Eos # (Auto) 0.13 (0.02-0.50) K/mm3 Baso # (Auto) 0.03 (0.00-0.10) K/mm3 Abs Immat Gran (auto) 0.03 H (0.00-0.00) K/mm3 Absolute Neuts (auto) 6.26 (1.70-7.20) K/mm3 Absolute Nucleated RBC 0.00 (0.00-0.00) K/mm3 Nucleated RBC % 0.0 (0-0.0) % Sodium 144 (137-145) mmol/L Potassium 3.7 (3.4-5.0) mmol/L Chloride 110 H (98-107) mmol/L Carbon Dioxide 18 L (22-30) mmol/L Anion Gap 16 H (4-12) mmol/L BUN 7 (7-17) mg/dL Creatinine 0.85 (0.7-1.0) mg/dL Estim Creat Clear Calc Not Reportable Estimated GFR > 60 (59 - ) Glucose 103 (65-110) mg/dL Calculated Osmolality 296 H (285-295) mOsm/kg Calcium 9.3 (8.4-10.2) mg/dL Total Bilirubin 0.1 L (0.2-1.3) mg/dL AST 27 (14-36) U/L ALT 25 (6-35) U/L Alkaline Phosphatase 79 (38-126) U/L Total Protein 8.0 (6.3-8.2) g/dL Albumin 5.0 (3.5-5.1) g/dL TSH 3.190 (0.465-4.680) uIU/mL Urine Color Light yellow (Yellow) Urine Appearance Clear (Clear) Urine pH 6.0 (5.0-8.0) Ur Specific [place] <= 1.005 L (1.010-1.020) Urine Protein Negative (Negative) Urine Glucose (UA) Negative (Negative) Urine Ketones Negative (Negative) Ur Blood (Man) Negative (Negative) Urine Nitrate Negative (Negative) Urine Bilirubin Negative (Negative) Urine Urobilinogen 0.2 (0.2-1.0) mg/dL Leukocyte Esterase Rfl Negative (Negative) LINETTE/UL Urine Test Negative Salicylates < 1.0 L (2-20) mg/dL Urine Opiates Screen Negative (Negative) Urine Methadone Screen Negative (Negative) Acetaminophen < 10 L (10-30) ug/mL Ur Barbiturates Screen Negative (Negative) Ur Phencyclidine Scrn Negative (Negative) Ur Amphetamine Screen Negative (Negative) U Benzodiazepines Scrn Negative (Negative) Urine Cocaine Screen Negative (Negative) U Cannabinoids Screen Negative (Negative) Ethyl Alcohol 126 (<10) mg/dL Discharge Plan Discharge Clinical Impression: Intentional overdose, Depression Patient Disposition: Home Condition: Stable Instructions: Depression (ED) Additional Instructions: Please return to the emergency department if you have any more thoughts of hurting yourself or anyone else. Patient Language: Bulgarian Prescriptions: No Action gabapentin 100 mg capsule 100 mg PO TID meclizine 50 mg tablet 50 mg PO BID PRN (Reason: dizziness) Qty: 14 0RF alprazolam [Xanax] 0.5 mg tablet 0.5 mg PO BID PRN (Reason: anxiety) Qty: 20 0RF quetiapine 50 mg tablet 50 mg PO QHS cephalexin 500 mg capsule 500 mg PO Q8H clonidine HCl 0.1 mg tablet 0.1 mg PO TID Follow-up/Referrals: Surendra,MD Timothy [Non-Staff, Family Practice]
--- NOTE | 2025-03-24 19:07 | ECG_ITS ---
Test Date: 2025-03-24 19:22:48 Measurements Intervals [place] Rate: 87 P: 28 [place]: 158 QRS: -7 QRSD: 102 T: -5 QT: 370 QTc: 446 Interpretive Statements SINUS RHYTHM INCOMPLETE RIGHT BUNDLE BRANCH BLOCK DELAYED PRECORDIAL R/S TRANSITION LOW QRS VOLTAGE IN PRECORDIAL LEADS BORDERLINE ST-T WAVE ABNORMALITY- ANTEROLAT/INF LEADS BASELINE ARTIFACT- I, II, AVR BORDERLINE ECG Compared to ECG 09/02/2024 18:31:15 No significant changes Electronically Signed On 03-24-2025 21:08:53 BRIM AND CROWN PRESSER by Favian Mays D.O.
[2025-03-24 19:57] LABS: Hematocrit 40.0 % (35.0-49.0); Hemoglobin 13.5 g/dL (12.0-15.0); Immature Granulocyte Percent A 0.3 % (0.0-0.0); Lymphocytes Absolute Auto 2.95 K/mm3 (1.10-4.50); Mean Corpuscular HGB Conc 33.8 g/dL (32-36); Mean Corpuscular Hemoglobin 31.0 pg (27.0-31.0); Mean Corpuscular Volume 92.0 fL (78.0-102.0); Nucleated Red Blood Cells Absolute Auto 0.00 K/mm3 (0.00-0.00); Nucleated Red Blood Cells Perc 0.0 % (0-0.0); Platelet Count Result 461 K/mm3 (150-420); Red Blood Count 4.35 M/mm3 (4.20-5.40); White Blood Count 10.1 K/mm3 (4.8-10.8)
[2025-03-24 19:59] LABS: Add Urine Microscopic? NO; Appearance Urine Clear (Clear); Glucose Urine UA Negative (Negative); Leukocyte Esterase Ur Negative LEU/UL (Negative); Nitrate Urine Negative (Negative); Specific Grav Ur <= 1.005 (1.010-1.020)
[2025-03-24 20:09] LABS: Acetaminophen < 10 ug/mL (10-30); Salicylate < 1.0 mg/dL (2-20)
[2025-03-24 20:10] LABS: Alanine Aminotransferase 25 U/L (6-35); Albumin Level 5.0 g/dL (3.5-5.1); Alkaline Phosphatase 79 U/L (38-126); Anion Gap 16 mmol/L (4-12); Aspartate Amino Transferase 27 U/L (14-36); Bilirubin,Total 0.1 mg/dL (0.2-1.3); Blood Urea Nitrogen 7 mg/dL (7-17); Calcium 9.3 mg/dL (8.4-10.2); Carbon Dioxide 18 mmol/L (22-30); Chloride 110 mmol/L (98-107); Estimated Glomerular Filt Rate > 60; Glucose 103 mg/dL (65-110); Osmolality Calculated 296 mOsm/kg (285-295); Potassium 3.7 mmol/L (3.4-5.0); Sodium 144 mmol/L (137-145); Total Protein 8.0 g/dL (6.3-8.2)
--- NOTE | 2025-03-24 20:23 | PC.NURSE ---
Mother called and wanted update on patient. This RN spoke with patient, patient not wanting any information given to anyone at this time. Patient requesting for her mother to call her on her cell phone and no information given to mother.
[2025-03-24 20:35] LABS: Cannabinoid Screen Urine Negative (Negative)
[2025-03-24 20:36] LABS: Pregnancy On Board Control Positive
[2025-03-24 20:40] LABS: Thyroid Stimulating Hormone 3.190 uIU/mL (0.465-4.680)
== END 2025-03-24 23:50 | disposition home or self-care (01) ==
PROVIDERS: Emergency Provider Family Medicine; PCP Registered Nurse
DX: T40.2X2A Poisoning by other opioids, intentional self-harm, initial encounter (principal); F32.A Depression, unspecified; Z87.891 Personal history of nicotine dependence
CPT/HCPCS: 36415; 80053; 80143; 80179; 80307; 81003; 81025; 82077; 84443; 85025; 93005; 99284